=== PATIENT | female | born 1980 | race Caucasian/White ===

== ENCOUNTER 2016-09-18 11:25 | Inpatient (IN) ==
[2016-09-18] MEDS ORDERED: 0.9 % Sodium Chloride 1,000 ML IVC ONE (12:04)
[2016-09-18] MEDS ORDERED: *HR* HYDROmorphone (PF) 1 MG/ML SYRINGE IVP ONE (12:04)
[2016-09-18] MEDS ORDERED: Ondansetron 4 MG/2 ML VIAL IVP ONE (12:04)
[2016-09-18 12:13] LABS: Bilirubin,Urine Negative (Negative); Blood,Urine Negative (Negative); Clarity,Urine Clear (Clear); Color,Urine Yellow (Yellow); Glucose,Urine (UA) Normal (Normal); Ketones,Urine Negative (Negative); Leukocyte Esterase,Urine Negative (Negative); Nitrite,Urine Negative (Negative); PH,Urine 6.5 pH Units (5.0-8.0); Protein,Urine Trace mg/dL (Neg-Trace); Specific Gravity,Urine 1.019 (1.010-1.025); Urobilinogen,Urine Normal (Normal)
[2016-09-18 12:20] LABS: Bacteria,Urine Few per hpf (None-Few); Hyaline Casts,Urine None Seen per lpf (None-Few); RBC,Urine 0-3 per hpf (0-3); Squamous Epithelial Cell,Urine Many per lpf (None-Few); WBC,Urine 0-3 per hpf (0-3)
[2016-09-18 12:39] LABS: Basophils % 0.4 %; Eosinophils # 0.2 K/mcL (0.0-0.6); Hematocrit 40.6 % (35.3-44.9); Hemoglobin 13.5 g/dL (11.5-15.4); Immature Granulocytes % 0.5 % (0-4); Lymphocytes # 1.6 K/mcL (0.6-4.6); Lymphocytes % 20.7 %; Mean Corpuscular HGB Conc 33.3 g/dL (31.6-35.5); Mean Corpuscular Hemoglobin 28.2 pg (28.0-33.3); Mean Corpuscular Volume 84.8 fL (83.0-100.0); Mean Platelet Volume 9.3 fL (9.4-12.4); Monocytes # 0.5 K/mcL (0.0-1.3); Monocytes % 6.4 %; Neutrophils # 5.5 K/mcL (1.6-8.9); Platelet Count 339 K/mcL (140-400); Red Blood Count 4.79 M/mcL (3.82-4.97); Red Cell Distribution Width 14.9 % (11.5-14.5)
[2016-09-18 12:43] LABS: INR 1.1; Prothrombin Time 11.8 Seconds (9.4-12.1)
[2016-09-18 12:45] LABS: Activated Partial Thrombo Time 32.3 Seconds (26.0-36.0)
[2016-09-18 13:01] LABS: Alanine Aminotransferase 23 Units/L (0-55); Albumin 3.7 g/dL (3.5-5.0); Albumin/Globulin Ratio 0.9 (1.1-2.2); Alkaline Phosphatase 97 Units/L (38-126); Amylase 27 Units/L (25-125); Aspartate Amino Transferase 15 Units/L (5-34); BUN/Creatinine Ratio 14 (6-26); Bilirubin,Direct 0.3 mg/dL (0.0-0.5); Bilirubin,Indirect 0.8 mg/dL (0.0-1.2); Bilirubin,Total 1.1 mg/dL (0.2-1.2); Blood Urea Nitrogen 10 mg/dL (7-20); Calcium 9.5 mg/dL (8.6-10.8); Carbon Dioxide 22 mEq/L (19-29); Chloride 105 mEq/L (98-109); Globulin 4.2 g/dL (2.4-3.5); Glucose 93 mg/dL (70-99); Lipase 18 Units/L (8-78); Osmolality,Calculated 287 (280-300); Potassium 3.7 mEq/L (3.5-4.5); Sodium 139 mEq/L (136-145); Total Protein 7.9 g/dL (6.0-8.3); eGFR For African Americans > 60 (> 60); eGFR For Non-African Americans > 60 (> 60)
--- NOTE | 2016-09-18 13:31 | Emergency Department Note ---
Disposition Clinical Impression: Diverticulitis Qualifiers: Diverticulitis site: large intestine Diverticulitis bleeding: without bleeding Diverticulitis complication: without perforation or abscess Qualified Code(s): K57.32 - Diverticulitis of large intestine without perforation or abscess without bleeding Disposition: Admitted As Inpatient Condition: Good Time of Disposition: 13:45 Abdominal Pain HPI - General Chief Complaint: ED Abdominal Pain Stated Complaint: LLQ abdominal pain/HTN Time Seen by Provider: 09/18/16 11:33 Source: patient, family Limitations: no limitations Nursing Notes Reviewed: Yes Vital Signs Reviewed: Yes - History of Present Illness HPI Narrative: 36-year-old female presents with left lower quadrant abdominal pain. Patient was evaluated for similar symptoms 5 days ago and diagnosed with diverticulitis on CT scan. She was discharged with Cipro and Flagyl with Zofran. Patient states she was she was unable to keep down her antibiotics despite the use of Zofran ODT or any other medications. Pain Scale: 9 - Related Data Home Medications Medication Instructions Recorded Confirmed Amlodipine [Norvasc] 5 mg PO DAILY 07/23/16 09/18/16 HYDROcodone/Acet 5/325 mg [[place] 1 tab PO Q6H PRN 07/23/16 09/18/16 5-325 mg] GuaiFENesin Liq [Robitussin Liq] 200 mg PO Q6HR PRN 09/18/16 09/18/16 Previous Rx's Medication Instructions Recorded Sennosides/Docusate Sodium [Senna 2 each PO BID #60 tablet 07/29/16 Plus] Amoxicillin/Clavulanate [Augmentin] 875 mg PO BIDWM 10 Days 09/14/16 MetroNIDAZOLE [Flagyl] 500 mg PO TID 10 Days 09/14/16 Ondansetron HCl [Zofran] 4 mg PO Q4H PRN #10 tablet 09/14/16 Allergies Allergy/AdvReac Type Severity Reaction Status Date / Time azithromycin [From Zithromax] Allergy Abdominal Verified 05/20/16 10:02 Pain levofloxacin [From Levaquin] Allergy Hives Verified 05/20/16 10:02 prochlorperazine Allergy Rash Verified 05/20/16 10:02 [From Compazine] Sulfa (Sulfonamide Allergy Anaphylaxis Verified 05/20/16 10:02 Antibiotics) All systems ED: reviewed and negative except as stated. Constitutional: Reports: fever, chills, weakness Cardiovascular: Denies: chest pain, palpitations, dyspnea on exertion Respiratory: Denies: cough, dyspnea, wheezes Gastrointestinal: Reports: abdominal pain, nausea, vomiting, diarrhea Genitourinary: Denies: urgency, dysuria, frequency, hematuria Musculoskeletal: Denies: back pain, neck pain Integumentary: Denies: rash, abrasion Neurological: Denies: headache, weakness, numbness, paresthesias Abdominal Pain PMH - Past Medical History Medical history: Reports: asthma, hypertension, kidney stones Female Surgical History: Reports: appendectomy, , cholecystectomy, hysterectomy [employer] history: Reports: endometriosis, polycystic ovary syndrome Psychiatric history: Reports: anxiety - Social History Smoking status: Never smoker Alcohol use: Reports: none Drug use: Reports: none Physical Exam General: Alert and in no acute distress Skin: Warm, dry, intact Head: Normocephalic and atraumatic Neck: Supple, trachea midline and no tenderness Cardiovascular: RRR, no murmur, normal perfusion Respiratory: CTAB, no wheezing, cough, or respiratory distress Musculoskeletal: Normal strength, no tenderness, swelling or deformity GI: Soft, tenderness palpation of the left lower quadrant without rigidity, guarding, or rebound., nondistended. Bowel sounds present Neuro: A&O to person, place, time and situation. No focal deficits noted on exam Psychiatric: cooperative and appropriate mood and affect. - General Limitations: no limitations General appearance: alert, in no apparent distress Course Vital Signs Temperature 98.0 F 09/18/16 11:26 Pulse Rate 102 09/18/16 11:26 Respiratory Rate 18 09/18/16 11:26 Blood Pressure 170/114 09/18/16 11:26 O2 Sat by Pulse Oximetry 98 09/18/16 11:26 Temperature 97.7 F 09/18/16 23:23 Pulse Rate 90 09/18/16 23:23 Respiratory Rate 14 09/18/16 23:23 Blood Pressure 151/85 09/18/16 23:23 O2 Sat by Pulse Oximetry 97 09/18/16 23:23 Oxygen Delivery Oxygen Delivery Room Air Abdominal Pain - MDM Narrative Medical decision making narrative: Patient started on IV antibiotics emergency department. Patient failed outpatient antibiotics and will be admitted to the hospital for further care and evaluation. Additional CT not ordered because of multiple recent CTs. - Medical Records Medical records reviewed: Yes I reviewed the patient's medical records. - Lab Data Lab results reviewed: Yes I reviewed the patient's lab results. Result diagrams: 09/18/16 12:31 09/18/16 12:31 Lab Results 09/18/16 09/18/16 09/18/16 Range/Units 12:00 12:31 12:31 WBC 7.8 (4.3-11.1) K/mcL RBC 4.79 (3.82-4.97) M/mcL Hgb 13.5 (11.5-15.4) g/dL Hct 40.6 (35.3-44.9) % MCV 84.8 (83.0-100.0) fL MCH 28.2 (28.0-33.3) pg MCHC 33.3 (31.6-35.5) g/dL RDW 14.9 H (11.5-14.5) % Plt Count 339 (140-400) K/mcL MPV 9.3 L (9.4-12.4) fL Immature Gran % 0.5 (0-4) % Seg Neutrophils % 70.0 % Lymphocytes % 20.7 % Monocytes % 6.4 % Eosinophils % 2.0 % Basophils % 0.4 % Neutrophils # 5.5 (1.6-8.9) K/mcL Lymphocytes # 1.6 (0.6-4.6) K/mcL Monocytes # 0.5 (0.0-1.3) K/mcL Eosinophils # 0.2 (0.0-0.6) K/mcL Basophils # 0.0 (0.0-0.2) K/mcL Immature Plt Fraction 3.0 (1.1-6.1) % PT 11.8 (9.4-12.1) Seconds INR 1.1 APTT 32.3 (26.0-36.0) Seconds Sodium (136-145) mEq/L Potassium (3.5-4.5) mEq/L Chloride (98-109) mEq/L Carbon Dioxide (19-29) mEq/L BUN (7-20) mg/dL Creatinine (0.57-1.11) mg/dL Est GFR ( Amer) (> 60) Est GFR (Non-Af Amer) (> 60) BUN/Creatinine Ratio (6-26) Glucose (70-99) mg/dL Calculated Osmolality (280-300) Lactic Acid (0.5-2.2) mmol/L Calcium (8.6-10.8) mg/dL Total Bilirubin (0.2-1.2) mg/dL Direct Bilirubin (0.0-0.5) mg/dL Indirect Bilirubin (0.0-1.2) mg/dL AST (5-34) Units/L ALT (0-55) Units/L Alkaline Phosphatase (38-126) Units/L Serum Total Protein (6.0-8.3) g/dL Albumin (3.5-5.0) g/dL Globulin (2.4-3.5) g/dL Albumin/Globulin Ratio (1.1-2.2) Amylase (25-125) Units/L Lipase (8-78) Units/L Urine Color Yellow (Yellow) Urine Clarity Clear (Clear) Urine pH 6.5 (5.0-8.0) pH Units Ur Specific [place] 1.019 (1.010-1.025) Urine Protein Trace (Neg-Trace) mg/dL Urine Glucose (UA) Normal (Normal) mg/dL Urine Ketones Negative (Negative) mg/dL Urine Blood Negative (Negative) Urine Nitrite Negative (Negative) Urine Bilirubin Negative (Negative) Urine Urobilinogen Normal (Normal) mg/dL Ur Leukocyte Esterase Negative (Negative) Urine Microscopic RBC 0-3 (0-3) per hpf Urine Microscopic WBC 0-3 (0-3) per hpf Ur Squamous Epith Cells Many H (None-Few) per lpf Urine Bacteria Few (None-Few) per hpf Hyaline Casts None Seen (None-Few) per lpf Ur Culture Indicated? NO (NO) 09/18/16 09/18/16 Range/Units 12:31 12:31 WBC (4.3-11.1) K/mcL RBC (3.82-4.97) M/mcL Hgb (11.5-15.4) g/dL Hct (35.3-44.9) % MCV (83.0-100.0) fL MCH (28.0-33.3) pg MCHC (31.6-35.5) g/dL RDW (11.5-14.5) % Plt Count (140-400) K/mcL MPV (9.4-12.4) fL Immature Gran % (0-4) % Seg Neutrophils % % Lymphocytes % % Monocytes % % Eosinophils % % Basophils % % Neutrophils # (1.6-8.9) K/mcL Lymphocytes # (0.6-4.6) K/mcL Monocytes # (0.0-1.3) K/mcL Eosinophils # (0.0-0.6) K/mcL Basophils # (0.0-0.2) K/mcL Immature Plt Fraction (1.1-6.1) % PT (9.4-12.1) Seconds INR APTT (26.0-36.0) Seconds Sodium 139 (136-145) mEq/L Potassium 3.7 (3.5-4.5) mEq/L Chloride 105 (98-109) mEq/L Carbon Dioxide 22 (19-29) mEq/L BUN 10 (7-20) mg/dL Creatinine 0.74 (0.57-1.11) mg/dL Est GFR ( Amer) > 60 (> 60) Est GFR (Non-Af Amer) > 60 (> 60) BUN/Creatinine Ratio 14 (6-26) Glucose 93 (70-99) mg/dL Calculated Osmolality 287 (280-300) Lactic Acid 1.3 (0.5-2.2) mmol/L Calcium 9.5 (8.6-10.8) mg/dL Total Bilirubin 1.1 (0.2-1.2) mg/dL Direct Bilirubin 0.3 (0.0-0.5) mg/dL Indirect Bilirubin 0.8 (0.0-1.2) mg/dL AST 15 (5-34) Units/L ALT 23 (0-55) Units/L Alkaline Phosphatase 97 (38-126) Units/L Serum Total Protein 7.9 (6.0-8.3) g/dL Albumin 3.7 (3.5-5.0) g/dL Globulin 4.2 H (2.4-3.5) g/dL Albumin/Globulin Ratio 0.9 L (1.1-2.2) Amylase 27 (25-125) Units/L Lipase 18 (8-78) Units/L Urine Color (Yellow) Urine Clarity (Clear) Urine pH (5.0-8.0) pH Units Ur Specific [place] (1.010-1.025) Urine Protein (Neg-Trace) mg/dL Urine Glucose (UA) (Normal) mg/dL Urine Ketones (Negative) mg/dL Urine Blood (Negative) Urine Nitrite (Negative) Urine Bilirubin (Negative) Urine Urobilinogen (Normal) mg/dL Ur Leukocyte Esterase (Negative) Urine Microscopic RBC (0-3) per hpf Urine Microscopic WBC (0-3) per hpf Ur Squamous Epith Cells (None-Few) per lpf Urine Bacteria (None-Few) per hpf Hyaline Casts (None-Few) per lpf Ur Culture Indicated? (NO) - Radiology Data Radiology results reviewed: Yes I reviewed the patient's radiology results.
[2016-09-18] MEDS ORDERED: Naloxone 0.4 MG/ML INJ IVP PRN (13:52)
[2016-09-18] MEDS ORDERED: Acetaminophen 325 MG TABLET PO PRN (13:52)
--- NOTE | 2016-09-18 13:59 | Internal Med History&Physical ---
Date of Encounter: 09/18/16 Time of Encounter: 13:57 Assessment and Plan (1) Acute diverticulitis Current visit: No Status: Resolved Severe dehydration secondary to intractable vomiting from acute sigmoid diverticulitis Bowel rest/keep nothing by mouth Start Rocephin and IV Flagyl. IV fluids, Toradol and morphine as needed Zofran as needed Case was discussed with Dr. Saleem, we will not consult surgery for now but the patient decompensates surgery will be called. The patient may need to evaluate the possibility of partial colectomy if the symptoms persist in the future Check a lactic acid (2) Failure of outpatient treatment Current visit: No Status: Acute (3) Intractable vomiting Current visit: No Status: Acute Qualifiers: Vomiting type: unspecified Nausea presence: with nausea Qualified Code(s) : R11.2 - Nausea with vomiting, unspecified (4) HTN (hypertension) Current visit: No Status: Chronic Stable Hold amlodipine Use hydralazine IV as needed Qualifiers: Hypertension type: essential hypertension Qualified Code(s): I10 - Essential (primary) hypertension (5) Morbid obesity with BMI of 40.0-44.9, adult Current visit: No Status: Chronic (6) Asthma Current visit: Yes Status: Acute Laboratories were GI prophylaxis and subcutaneous heparin for DVT prophylaxis. Patient will be admitted as inpatient, she is expected to stay more than 2 midnights. Full code. Time spent on this admission 40 minutes. She is high risk due to recurrent diverticulitis, failure of outpatient therapy and severe dehydration Qualifiers: Asthma severity: unspecified severity Asthma complication type: uncomplicated Qualified Code(s): J45.909 - Unspecified asthma, uncomplicated Internal Medicine - H&P: HPI Chief complaint: vomiting and abdominal pain Admitted From: Emergency Dept History of present illness: Ms. Fernando is a 36 year old female with a past medical history of anxiety, hypertension, asthma with recurrent acute diverticulitis who was admitted to the hospital for that reason back in July 2016, again came to the hospital on September [address] complaining of [address] scan at that time showed sigmoid diverticulitis for which she was sent on Augmentin and Flagyl. She says that she had a dose of an antibiotic here at the hospital and after that was only able to take one dose of Augmentin and Flagyl as she has been vomiting for the past 3 days nonstop, since yesterday, she has vomited 6 times and had one episode of diarrhea. The pain is located mostly on the left lower quadrant , cramp like 9 out of 10 in intensity. Her heart rate is 102 and she appears in distress and very dehydrated. Her blood pressure is stable. Denies any other symptoms. The patient is allergic to Levaquin but has been able to take ciprofloxacin without any problem in the past. Past Med Surg Social Fam HX - Past Medical History Medical history: asthma, hypertension, kidney stones, other (Nephrolithiasis, polycystic ovarian syndrome, endometriosis, anxiety, constipation, recurrent reticulitis) Psychiatric history: anxiety - Past Surgical History Surgical History: appendectomy, , cholecystectomy, hysterectomy, other (unspecified multiple abdominal surgeries between [id number] (eCW), tonsillectomy , adenoidectomy) - Social History Smoking Status: Never smoker Smokeless Tobacco Status: No Alcohol use: none Drug use: none - Family History Mother Adopted: No Family Member Ethnicity: Non- Living Status: Still Living Hx Family Cardiac Disorders: No Hx Family Respiratory Disorders: No Hx Family Cancer: No Hx Family GI Disorders: No Hx Family Endocrine Disorder: No Hx Family Neuromuscular Disorders: No Hx Family Neurologic Disorders: No Hx Family HEENT Disorders: No Hx Family Autoimmune Disorders: No Father Family Member Ethnicity: Non- Hx Family Cardiac Disorders: No Hx Family Respiratory Disorders: No Hx Family Cancer: No Hx Family GI Disorders: No Hx Family Endocrine Disorder: No Hx Family Neuromuscular Disorders: No Hx Family Neurologic Disorders: No Hx Family HEENT Disorders: No Hx Family Autoimmune Disorders: No - Additional Family History Additional family history: Mother with heart disease Internal Medicine - H&P: Meds Amlodipine [Norvasc] 5 mg PO DAILY 07/23/16 [History] HYDROcodone/Acet 5/325 mg [[place] 5-325 mg] 1 tab PO Q6H PRN 07/23/16 [History] Sennosides/Docusate Sodium [Senna Plus] 2 each PO BID #60 tablet 07/29/16 [Rx] Amoxicillin/Clavulanate [Augmentin] 875 mg PO BIDWM 10 Days 09/14/16 [Rx] MetroNIDAZOLE [Flagyl] 500 mg PO TID 10 Days 09/14/16 [Rx] Ondansetron HCl [Zofran] 4 mg PO Q4H PRN #10 tablet 09/14/16 [Rx] GuaiFENesin Liq [Robitussin Liq] 200 mg PO Q6HR PRN 09/18/16 [History] Allergies azithromycin [From Zithromax] Allergy (Verified 05/20/16 10:02) Abdominal Pain levofloxacin [From Levaquin] Allergy (Verified 05/20/16 10:02) Hives prochlorperazine [From Compazine] Allergy (Verified 05/20/16 10:02) Rash Sulfa (Sulfonamide Antibiotics) Allergy (Verified 05/20/16 10:02) Anaphylaxis All Systems PM: A 10-system review of systems was performed and is negative for pertinent findings except as documented above in the HPI. Review of systems: Denies any shortness of breath, no chest pain, no dysuria. Other systems out of the 10 reviewed were negative - Constitutional Vitals: Temp Pulse Resp BP Pulse Ox 98.0 F 99 16 157/110 95 09/18/16 11:26 09/18/16 13:34 09/18/16 13:34 09/18/16 13:34 09/18/16 13:34 General appearance: Present: A&O X 3, obese - Head Head exam: Present: atraumatic, normocephalic - Eye Eye exam: Present: PERRL, conjuntiva pink, sclera anicteric Pupils: Present: PERRL - Neck Neck exam general surgery: Present: supple, trachea midline. Absent: lymphadenopathy - Respiratory Respiratory exam: Present: CTAB. Absent: accessory muscle use, rales, rhonchi, wheezes - Cardiovascular Cardiovascular exam: Present: RRR, +S1, +S2. Absent: diastolic murmur, gallop, rubs, systolic murmur - GI/Abdominal GI/Abdominal exam: Present: diminished bowel sounds, distended, soft, tenderness (Left lower quadrant tenderness, no rebound), no peritoneal signs. Absent: normal bowel sounds, rebound - Extremities Exam Extremities exam: Present: warm, radial pulses palpable and symetrical. Absent : calf tenderness, cyanotic, pedal edema - Neurological Exam Neurological exam: Present: CN II-XII intact, oriented X3, no focal deficits. Absent: pronater drift, facial droop, speech deficit - Skin Skin exam: Present: dry, intact Internal Med - H&P Results - Labs CBC & Chem 7: 09/18/16 12:31 09/18/16 12:31 Labs: Short CBC 09/18/16 Range/Units 12:31 WBC 7.8 (4.3-11.1) K/mcL Hgb 13.5 (11.5-15.4) g/dL Hct 40.6 (35.3-44.9) % Plt Count 339 (140-400) K/mcL Neutrophils # 5.5 (1.6-8.9) K/mcL BMP 09/18/16 12:31 Sodium 139 Potassium 3.7 Chloride 105 Carbon Dioxide 22 BUN 10 Creatinine 0.74 Glucose 93 Calcium 9.5 Liver Function 09/18/16 Range/Units 12:31 Total Bilirubin 1.1 (0.2-1.2) mg/dL Direct Bilirubin 0.3 (0.0-0.5) mg/dL AST 15 (5-34) Units/L ALT 23 (0-55) Units/L Alkaline Phosphatase 97 (38-126) Units/L Albumin 3.7 (3.5-5.0) g/dL Urine 09/18/16 Range/Units 12:00 Urine Color Yellow (Yellow) Urine Clarity Clear (Clear) Urine pH 6.5 (5.0-8.0) pH Units Ur Specific [place] 1.019 (1.010-1.025) Urine Protein Trace (Neg-Trace) mg/dL Urine Glucose (UA) Normal (Normal) mg/dL
[2016-09-18] MEDS: *HR* Morphine 2 MG/ML SYRINGE IVP PRN ×2 (15:20→19:56)
[2016-09-18] MEDS: 0.9 % Sodium Chloride 1,000 ML IVC SCH ×2 (15:25→22:21)
[2016-09-18] MEDS: MetroNIDAZOLE 500 MG/100 ML 500 MG/100 ML BAG IVPB SCH ×2 (15:26→16:15)
[2016-09-18] MEDS: Pantoprazole 40 MG VIAL IVP SCH (15:26)
[2016-09-18] MEDS: *HR* Heparin 5,000 UNIT/ML VIAL SQ SCH (17:54)
[2016-09-18] MEDS: Ondansetron 4 MG/2 ML VIAL IVP PRN (19:56)
[2016-09-19] MEDS: MetroNIDAZOLE 500 MG/100 ML 500 MG/100 ML BAG IVPB SCH ×2 (00:18→07:31)
[2016-09-19] MEDS: Ketorolac 30 MG/ML VIAL IVP PRN ×2 (00:20→11:16)
[2016-09-19] MEDS: 0.9 % Sodium Chloride 1,000 ML IVC SCH ×6 (04:33→23:55)
[2016-09-19] MEDS: Ondansetron 4 MG/2 ML VIAL IVP PRN ×2 (04:35→23:54)
[2016-09-19] MEDS: *HR* Morphine 2 MG/ML SYRINGE IVP PRN ×4 (04:36→20:13)
[2016-09-19] MEDS: *HR* Heparin 5,000 UNIT/ML VIAL SQ SCH ×2 (05:08→17:04)
[2016-09-19 05:21] LABS: Hematocrit 34.1 % (35.3-44.9); Mean Corpuscular HGB Conc 32.6 g/dL (31.6-35.5); Mean Corpuscular Hemoglobin 28.5 pg (28.0-33.3); Mean Corpuscular Volume 87.4 fL (83.0-100.0); Mean Platelet Volume 9.8 fL (9.4-12.4); Platelet Count 268 K/mcL (140-400); Red Cell Distribution Width 14.9 % (11.5-14.5)
[2016-09-19 05:32] LABS: Hemoglobin 11.1 g/dL (11.5-15.4)
[2016-09-19 05:37] LABS: BUN/Creatinine Ratio 15 (6-26); Blood Urea Nitrogen 10 mg/dL (7-20); Calcium 8.6 mg/dL (8.6-10.8); Carbon Dioxide 25 mEq/L (19-29); Chloride 107 mEq/L (98-109); Glucose 97 mg/dL (70-99); Osmolality,Calculated 289 (280-300); Potassium 3.6 mEq/L (3.5-4.5); Sodium 140 mEq/L (136-145); eGFR For African Americans > 60 (> 60); eGFR For Non-African Americans > 60 (> 60)
[2016-09-19] MEDS: Pantoprazole 40 MG VIAL IVP SCH (07:32)
[2016-09-19] MEDS: amLODIPine 5 MG TABLET PO SCH (12:43)
--- NOTE | 2016-09-19 13:27 | Internal Med Progress Note ---
Date of Encounter: 09/19/16 Time of Encounter: 10:00 - Assessment and plan (1) Acute diverticulitis Current Visit: No Status: Resolved Assessment and plan: Patient has a recurrent acute diverticulitis. We will continue nothing by mouth , IV fluids, antibiotics. Symptom management. We will ask the GI consult. (2) Asthma Current Visit: Yes Status: Acute Assessment and plan: Stable. Nebulizer when necessary Qualifiers: Asthma severity: mild intermittent Asthma complication type: uncomplicated Qualified Code(s): J45.20 - Mild intermittent asthma, uncomplicated (3) Nausea and vomiting Current Visit: No Status: Acute Assessment and plan: Due to acute diverticulitis. We will continue nothing by mouth, IV fluids, symptom management. Qualifiers: Vomiting type: unspecified Vomiting Intractability: non-intractable Qualified Code(s): R11.2 - Nausea with vomiting, unspecified (4) HTN (hypertension) Current Visit: No Status: Chronic Assessment and plan: Stable, continue home medication Qualifiers: Hypertension type: essential hypertension Qualified Code(s): I10 - Essential (primary) hypertension (5) Morbid obesity with BMI of 40.0-44.9, adult Current Visit: No Status: Chronic Assessment and plan: Patient needs lifestyle modification (6) DVT prophylaxis Current Visit: No Status: Acute Assessment and plan: Heparin subcutaneously - Time Spent With Patient 25 - 35 minutes - Subjective Interval history: Patient is a 36-year-old female admitted for acute diverticulitis. Her past medical history is significant for asthma, hypertension, kidney stone, PCOS, endometriosis, anxiety, recurrent diverticulitis. Patient was seen and examined. She is still nauseous and sometimes vomiting, no diarrhea, mild to moderate abdominal pain. No fever, vitals are stable. We will continue IV fluid, nothing by mouth. Switch antibiotic to Zosyn considering patient has 2 episodes of acute diverticulitis already this year. - Constitutional Vitals: Temp Pulse Resp BP Pulse Ox 98.1 F 85 16 137/82 94 L 09/19/16 10:56 09/19/16 10:56 09/19/16 10:56 09/19/16 10:56 09/19/16 10:56 General appearance: Present: A&O X 3, obese - Head Head exam: Present: atraumatic, normocephalic - Eye Eye exam: Present: PERRL, conjuntiva pink, sclera anicteric Pupils: Present: PERRL - Neck Neck exam general surgery: Present: supple, trachea midline. Absent: lymphadenopathy - Respiratory Respiratory exam: Present: CTAB. Absent: accessory muscle use, rales, rhonchi, wheezes - Cardiovascular Cardiovascular exam: Present: RRR, +S1, +S2. Absent: diastolic murmur, gallop, rubs, systolic murmur - GI/Abdominal GI/Abdominal exam: Present: normal bowel sounds, soft, tenderness (Lower Abdomen tenderness without rebound or guarding), no peritoneal signs. Absent: distended - Extremities Exam Extremities exam: Present: warm, radial pulses palpable and symetrical. Absent : calf tenderness, cyanotic, pedal edema - Neurological Exam Neurological exam: Present: CN II-XII intact, oriented X3, no focal deficits. Absent: pronater drift, facial droop, speech deficit - Skin Skin exam: Present: dry, intact Internal Medicine: Result - Labs CBC & Chem 7: 09/19/16 04:27 09/19/16 04:27 Labs: Short CBC 09/19/16 Range/Units 04:27 WBC 6.5 (4.3-11.1) K/mcL Hgb 11.1 L D (11.5-15.4) g/dL Hct 34.1 L (35.3-44.9) % Plt Count 268 (140-400) K/mcL BMP 09/19/16 04:27 Sodium 140 Potassium 3.6 Chloride 107 Carbon Dioxide 25 BUN 10 Creatinine 0.66 Glucose 97 Calcium 8.6 - ABG Interpretation ABG results: PT/INR, D-dimer PT 11.8 Seconds (9.4-12.1) 09/18/16 12:31 Consult Discharge Plan - Plan Referrals: Carlos Malagon, PAC [Primary Care Provider] -
[2016-09-19] MEDS ORDERED: Ipratropium/Albuterol Neb 3 ML IH PRN (13:28)
--- NOTE | 2016-09-19 14:27 | Electrocardiograph Report ---
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
[2016-09-19] MEDS: *HR* Promethazine 25 MG/ML VIAL IVP PRN (15:08)
[2016-09-19] MEDS: Piperacillin/Tazobactam 3.375 GM in D5% in Water (Mini-Bag+) 100 ML IVPB SCH ×2 (15:08→23:55)
[2016-09-19] MEDS: Sennosides/Docusate Sodium TABLET PO SCH (20:13)
[2016-09-20] MEDS: *HR* Morphine 2 MG/ML SYRINGE IVP PRN ×4 (04:30→20:51)
[2016-09-20 05:14] LABS: Basophils % 0.4 %; Eosinophils # 0.2 K/mcL (0.0-0.6); Eosinophils % 3.1 %; Hematocrit 34.1 % (35.3-44.9); Hemoglobin 11.2 g/dL (11.5-15.4); Immature Granulocytes % 0.4 % (0-4); Lymphocytes # 1.1 K/mcL (0.6-4.6); Mean Corpuscular HGB Conc 32.8 g/dL (31.6-35.5); Mean Corpuscular Hemoglobin 28.1 pg (28.0-33.3); Mean Corpuscular Volume 85.7 fL (83.0-100.0); Mean Platelet Volume 9.4 fL (9.4-12.4); Monocytes # 0.4 K/mcL (0.0-1.3); Monocytes % 7.3 %; Neutrophils # 3.8 K/mcL (1.6-8.9); Platelet Count 249 K/mcL (140-400); Red Blood Count 3.98 M/mcL (3.82-4.97); Red Cell Distribution Width 14.6 % (11.5-14.5); Segmented Neutrophils % 68.8 %
[2016-09-20] MEDS: *HR* Heparin 5,000 UNIT/ML VIAL SQ SCH ×2 (05:15→17:28)
[2016-09-20 05:30] LABS: BUN/Creatinine Ratio 10 (6-26); Blood Urea Nitrogen 6 mg/dL (7-20); Calcium 8.4 mg/dL (8.6-10.8); Carbon Dioxide 23 mEq/L (19-29); Chloride 108 mEq/L (98-109); Glucose 108 mg/dL (70-99); Osmolality,Calculated 286 (280-300); Potassium 3.4 mEq/L (3.5-4.5); Sodium 139 mEq/L (136-145); eGFR For African Americans > 60 (> 60); eGFR For Non-African Americans > 60 (> 60)
[2016-09-20] MEDS: 0.9 % Sodium Chloride 1,000 ML IVC SCH (06:45)
[2016-09-20] MEDS ORDERED: 0.9 % Sodium Chloride 1,000 ML IVC SCH (07:22)
[2016-09-20] MEDS: Pantoprazole 40 MG VIAL IVP SCH (08:24)
[2016-09-20] MEDS: amLODIPine 5 MG TABLET PO SCH (08:24)
[2016-09-20] MEDS: Sennosides/Docusate Sodium TABLET PO SCH ×2 (08:24→20:51)
[2016-09-20] MEDS: Piperacillin/Tazobactam 3.375 GM in D5% in Water (Mini-Bag+) 100 ML IVPB SCH ×2 (08:24→17:27)
[2016-09-20] MEDS: Ondansetron 4 MG/2 ML VIAL IVP PRN (08:42)
--- NOTE | 2016-09-20 08:42 | Gastroenterology Consult Note ---
<Nancy Mcfarlane - Last Filed: 09/20/16 10:45> Date of Encounter: 09/20/16 Time of Encounter: 10:25 - Assessment and plan (1) Diverticulitis Current Visit: Yes Status: Acute Assessment and plan: Atbs, pain control. Plan for OTPT Cscope evaluation in 8-12 weeks. D/C patient home on fiber supplement daily. Pain is not improved since 09/14, rescan today. Qualifiers: Diverticulitis site: large intestine Diverticulitis bleeding: without bleeding Diverticulitis complication: without perforation or abscess Qualified Code(s): K57.32 - Diverticulitis of large intestine without perforation or abscess without bleeding (2) Nausea and vomiting Current Visit: No Status: Acute Assessment and plan: Intractable N/V unclear etiology, possibly secondary to acute diverticulitis. Anti-emetics, alternate phenergan and zofran, if not effective consider IV reglan for control. Patient currently on bowel rest, IV fluids. Qualifiers: Vomiting type: unspecified Vomiting Intractability: non-intractable Qualified Code(s): R11.2 - Nausea with vomiting, unspecified - Time Spent With Patient Total time spent is greater than 50% in coordination of care (as documented) at patient's floor/unit and/or counseling patient: less than 15 minutes GI History of Present Illness - Data of Consult Patient: new to practice Consult date: 09/20/16 Requesting Physician: Yeni Lujan MD - Consult Narrative Reason for consult: Uncomplicated diverticulitis History of present illness: Ms. Fernando is a 36 year old female with a PMH of anxiety, HTN, asthma with recurrent acute diverticulitis (this is the 2nd or 3rd episode within the last 12 months) who was admitted to the hospital for that reason back in July 2016, again came to the hospital on September 14 complaining of [address] scan at that time showed sigmoid diverticulitis for which she was sent on Augmentin and Flagyl. She says that she had a dose of an antibiotic here at the hospital and after that was only able to take one dose of Augmentin and Flagyl as she has been vomiting for the past 3 days nonstop.She was admitted due to OTPT treatment failure with oral medications and is now receiving the medication IV. The pain is located mostly on the left lower quadrant, cramp like 9 out of 10 in intensity. Patient examined at bedside, fresh, liquid yellow emesis in basis at bedside. Patient states pain has improved 'some' since her admission. She hasn't eaten solid food in one week time, she continues to have N/V with anything by mouth. She admits some gas yesterday, no bowel movement since admission, she complains of increase in bloating. Denies indigestion/heartburn, dysphagia. Bowel movements prior to admission 2-3 times daily, soft, brown stools. No blood or black stools. Colonoscopy: None noted EGD: None noted Past Med Surg Social Fam HX - Past Medical History Medical history: asthma, hypertension, kidney stones Psychiatric history: anxiety - Past Surgical History Surgical History: appendectomy, , cholecystectomy, hysterectomy, other - Social History Smoking Status: Never smoker Smokeless Tobacco Status: No Alcohol use: none Drug use: none - Family History Mother Adopted: No Family Member Ethnicity: Non- Living Status: Still Living Hx Family Cardiac Disorders: No Hx Family Respiratory Disorders: No Hx Family Cancer: No Hx Family GI Disorders: No Hx Family Endocrine Disorder: No Hx Family Neuromuscular Disorders: No Hx Family Neurologic Disorders: No Hx Family HEENT Disorders: No Hx Family Autoimmune Disorders: No Father Family Member Ethnicity: Non- Hx Family Cardiac Disorders: No Hx Family Respiratory Disorders: No Hx Family Cancer: No Hx Family GI Disorders: No Hx Family Endocrine Disorder: No Hx Family Neuromuscular Disorders: No Hx Family Neurologic Disorders: No Hx Family HEENT Disorders: No Hx Family Autoimmune Disorders: No - Gastrointestinal NSAID use: none Anticoagulation Use: Heparin Number of BM Per Day: 2-3 Gastrointestinal: Present: abdominal pain, bloating, nausea, vomiting - Constitutional Constitutional: anorexia - EENT Eyes: as per HPI Ears: Present: as per HPI Nose, mouth and throat: Present: as per HPI - Cardiovascular Cardiovascular ROS: Present: as per HPI - Respiratory Respiratory IM: Present: as per HPI - Neurological ROS Neurological GI: Present: as per HPI - Hematologic/Lymphatic Hematologic/Lymphatic pediatric: Present: as per HPI - Musculoskeletal Musculoskeletal ROS GI: Present: as per HPI - Integumentary Integumentary GI: Present: as per HPI - Psychiatric ROS Psychiatric GI: Present: as per HPI - Endocrine Endocrine IM: Present: as per HPI - Constitutional Vitals: Temp Pulse Resp BP Pulse Ox 97.6 F 78 16 150/98 95 09/20/16 06:43 09/20/16 06:43 09/20/16 06:43 09/20/16 06:43 09/20/16 06:43 General appearance: Present: cooperative, A&O X 3, no acute distress, answers questions appropriately - Head Head exam: Present: atraumatic, normocephalic - Eye Eye exam: Present: normal appearance, sclera anicteric - ENT ENT exam: Present: mucous membranes moist - Neck Neck exam general surgery: Present: normal inspection, trachea midline - Respiratory Respiratory exam: Present: CTAB - Cardiovascular Cardiovascular exam: Present: RRR, +S1, +S2 - GI/Abdominal GI/Abdominal exam: Present: hypoactive bowel sounds, soft, tenderness, no peritoneal signs - Rectal Rectal exam: Present: deferred - Extremities Exam Extremities exam: Present: warm - Neurological Exam Neurological exam: Present: no focal deficits - Psychiatric Psychiatric exam: Present: normal affect, normal mood - Skin Skin exam: Present: dry, intact, normal color, warm Results - Labs CBC & Chem 7: 09/20/16 04:43 09/20/16 04:43 Labs: Last Result Calcium 8.4 mg/dL (8.6-10.8) L 09/20/16 04:43 Entire Visit Hgb 11.2 g/dL (11.5-15.4) L 09/20/16 04:43 Hct 34.1 % (35.3-44.9) L 09/20/16 04:43 PT 11.8 Seconds (9.4-12.1) 09/18/16 12:31 Total Bilirubin 1.1 mg/dL (0.2-1.2) 09/18/16 12:31 AST 15 Units/L (5-34) 09/18/16 12:31 ALT 23 Units/L (0-55) 09/18/16 12:31 Amylase 27 Units/L (25-125) 09/18/16 12:31 Lipase 18 Units/L (8-78) 09/18/16 12:31 - ABG ABG results: PT/INR, D-dimer PT 11.8 Seconds (9.4-12.1) 09/18/16 12:31 Consult Discharge Plan - Plan Referrals: Carlos Malagon, PAC [Primary Care Provider] - <ZoeIreneMarilyn - Last Filed: 09/20/16 12:30> Date of Encounter: 09/20/16 Time of Encounter: 10:00 - Time Spent With Patient Total time spent is greater than 50% in coordination of care (as documented) at patient's floor/unit and/or counseling patient: GI History of Present Illness - Data of Consult Requesting Physician: Yeni Lujan MD - Consult Narrative History of present illness: Ms. Fernando is a 36 year old female - Constitutional Vitals: Temp Pulse Resp BP Pulse Ox 97.9 F 80 16 157/91 95 09/20/16 11:12 09/20/16 11:12 09/20/16 11:12 09/20/16 11:12 09/20/16 11:12 Results - Labs CBC & Chem 7: 09/20/16 04:43 09/20/16 04:43 Labs: Last Result Calcium 8.4 mg/dL (8.6-10.8) L 09/20/16 04:43 Entire Visit Hgb 11.2 g/dL (11.5-15.4) L 09/20/16 04:43 Hct 34.1 % (35.3-44.9) L 09/20/16 04:43 PT 11.8 Seconds (9.4-12.1) 09/18/16 12:31 Total Bilirubin 1.1 mg/dL (0.2-1.2) 09/18/16 12:31 AST 15 Units/L (5-34) 09/18/16 12:31 ALT 23 Units/L (0-55) 09/18/16 12:31 Amylase 27 Units/L (25-125) 09/18/16 12:31 Lipase 18 Units/L (8-78) 09/18/16 12:31 - ABG ABG results: PT/INR, D-dimer PT 11.8 Seconds (9.4-12.1) 09/18/16 12:31 - Attending Attestation I examined this patient and my medical decision-making was reviewed with the HOME IMPROVEMENT INSTALLER/PA/Advanced Practice Nurse/Resident Physician. I agree with the documented findings, disposition and treatment plan as described except to the extent set forth below. Patient with diverticulitis. CT scan revealed very minimal changes of diverticulitis. But still is having pain although abdomen is nonsurgical. If Repeat CT scan she does not any new changes then we will recommend adding some Bentyl for abdominal pain. Need colonoscopy as an outpatient 6-8 week
[2016-09-20] MEDS: *HR* Promethazine 25 MG/ML VIAL IVP PRN ×2 (10:20→17:43)
--- NOTE | 2016-09-20 15:08 | Internal Med Progress Note ---
Date of Encounter: 09/20/16 Time of Encounter: 09:00 - Assessment and plan (1) Acute diverticulitis Current Visit: No Status: Resolved Assessment and plan: Patient has a recurrent acute diverticulitis. We will continue nothing by mouth , IV fluids, antibiotics. Symptom management. GI consult appreciated. (2) Asthma Current Visit: Yes Status: Acute Assessment and plan: Stable. Nebulizer when necessary Qualifiers: Asthma severity: mild intermittent Asthma complication type: uncomplicated Qualified Code(s): J45.20 - Mild intermittent asthma, uncomplicated (3) Nausea and vomiting Current Visit: No Status: Acute Assessment and plan: Due to acute diverticulitis. We will continue nothing by mouth, IV fluids, symptom management. Check U tox to rule out drug induced nausea and vomiting. Patient had hysterectomy, is not a reason. Qualifiers: Vomiting type: unspecified Vomiting Intractability: non-intractable Qualified Code(s): R11.2 - Nausea with vomiting, unspecified (4) HTN (hypertension) Current Visit: No Status: Chronic Assessment and plan: Stable, continue home medication Qualifiers: Hypertension type: essential hypertension Qualified Code(s): I10 - Essential (primary) hypertension (5) Morbid obesity with BMI of 40.0-44.9, adult Current Visit: No Status: Chronic Assessment and plan: Patient needs lifestyle modification (6) DVT prophylaxis Current Visit: No Status: Acute Assessment and plan: Heparin subcutaneously - Time Spent With Patient 25 - 35 minutes - Subjective Interval history: Patient is a 36-year-old female admitted for acute diverticulitis. Her past medical history is significant for asthma, hypertension, kidney stone, PCOS, endometriosis, anxiety, recurrent diverticulitis. Patient was seen and examined. She is still nauseous and sometimes vomiting, no diarrhea, mild to moderate abdominal pain. No fever, vitals are stable. We will continue IV fluid, nothing by mouth. Continue Zosyn. GI consult appreciated. Repeated CAT scan shows improvement of the inflammation. - Constitutional Vitals: Temp Pulse Resp BP Pulse Ox 98.0 F 82 16 150/95 96 09/20/16 14:18 09/20/16 14:18 09/20/16 14:18 09/20/16 14:18 09/20/16 14:18 General appearance: Present: A&O X 3, obese - Head Head exam: Present: atraumatic, normocephalic - Eye Eye exam: Present: PERRL, conjuntiva pink, sclera anicteric Pupils: Present: PERRL - Neck Neck exam general surgery: Present: supple, trachea midline. Absent: lymphadenopathy - Respiratory Respiratory exam: Present: CTAB. Absent: accessory muscle use, rales, rhonchi, wheezes - Cardiovascular Cardiovascular exam: Present: RRR, +S1, +S2. Absent: diastolic murmur, gallop, rubs, systolic murmur - GI/Abdominal GI/Abdominal exam: Present: normal bowel sounds, soft, tenderness (Mild tenderness of lower abdomen without guarding or rebound), no peritoneal signs. Absent: distended - Extremities Exam Extremities exam: Present: warm, radial pulses palpable and symetrical. Absent : calf tenderness, cyanotic, pedal edema - Neurological Exam Neurological exam: Present: CN II-XII intact, oriented X3, no focal deficits. Absent: pronater drift, facial droop, speech deficit - Skin Skin exam: Present: dry, intact Internal Medicine: Result - Labs CBC & Chem 7: 09/20/16 04:43 09/20/16 04:43 Labs: Short CBC 09/20/16 Range/Units 04:43 WBC 5.5 (4.3-11.1) K/mcL Hgb 11.2 L (11.5-15.4) g/dL Hct 34.1 L (35.3-44.9) % Plt Count 249 (140-400) K/mcL Neutrophils # 3.8 (1.6-8.9) K/mcL BMP 09/20/16 04:43 Sodium 139 Potassium 3.4 L Chloride 108 Carbon Dioxide 23 BUN 6 L Creatinine 0.63 Glucose 108 H Calcium 8.4 L - ABG Interpretation ABG results: PT/INR, D-dimer PT 11.8 Seconds (9.4-12.1) 09/18/16 12:31 - Impressions Impressions Abdomen/Pelvis CT 09/20/16 13:30 IMPRESSION: 1. Previously noted subtle inflammation adjacent to the sigmoid colon is not appreciated on today's study. 2. No other acute abdominal or pelvic abnormality. 3. Hepatic steatosis. D/ / 09/20/2016 14:30:26 Chante Mercedes MD / santi Interpreting Provider: Chante Mercedes MD Consult Discharge Plan - Plan Referrals: Carlos Malagon, PAC [Primary Care Provider] -
[2016-09-20] MEDS: D5% in 0.45% NACL w KCl 20 MEQ/1,000 ML MLS IVC SCH (17:28)
[2016-09-20 21:39] LABS: Amphetamine Screen,Urine Negative ng/mL (Cutoff=1000); Barbiturate Screen,Urine Negative ng/mL (Cutoff=200); Benzodiazepines Screen,Urine Negative ng/mL (Cutoff=200); Cannabinoid Screen,Urine Negative ng/mL (Cutoff = 50); Cocaine Screen,Urine Negative ng/mL (Cutoff= 300); Opiate Screen,Urine Positive ng/mL (Cutoff=300); Phencyclidine Screen,Urine Negative ng/mL (Cutoff=25)
[2016-09-21] MEDS: *HR* HYDROcodone/Acet 5/325 mg TABLET PO PRN ×3 (00:33→15:58)
[2016-09-21] MEDS: Piperacillin/Tazobactam 3.375 GM in D5% in Water (Mini-Bag+) 100 ML IVPB SCH ×3 (00:33→16:00)
[2016-09-21] MEDS: Ondansetron ODT 4 MG TAB.RAPDIS PO PRN ×2 (00:33→09:13)
[2016-09-21] MEDS: *HR* Morphine 2 MG/ML SYRINGE IVP PRN ×3 (03:32→19:45)
[2016-09-21 03:35] LABS: Basophils % 0.3 %; Eosinophils # 0.2 K/mcL (0.0-0.6); Eosinophils % 3.5 %; Hematocrit 35.8 % (35.3-44.9); Hemoglobin 11.7 g/dL (11.5-15.4); Immature Granulocytes % 0.7 % (0-4); Lymphocytes # 1.4 K/mcL (0.6-4.6); Lymphocytes % 23.6 %; Mean Corpuscular HGB Conc 32.7 g/dL (31.6-35.5); Mean Corpuscular Hemoglobin 28.3 pg (28.0-33.3); Mean Corpuscular Volume 86.7 fL (83.0-100.0); Mean Platelet Volume 9.5 fL (9.4-12.4); Monocytes # 0.4 K/mcL (0.0-1.3); Monocytes % 7.3 %; Neutrophils # 3.7 K/mcL (1.6-8.9); Platelet Count 291 K/mcL (140-400); Red Blood Count 4.13 M/mcL (3.82-4.97); Red Cell Distribution Width 14.6 % (11.5-14.5); Segmented Neutrophils % 64.6 %
[2016-09-21] MEDS: D5% in 0.45% NACL w KCl 20 MEQ/1,000 ML MLS IVC SCH ×2 (03:37→11:41)
[2016-09-21 03:56] LABS: BUN/Creatinine Ratio 8 (6-26); Blood Urea Nitrogen 6 mg/dL (7-20); Calcium 9.2 mg/dL (8.6-10.8); Carbon Dioxide 25 mEq/L (19-29); Chloride 106 mEq/L (98-109); Glucose 125 mg/dL (70-99); Osmolality,Calculated 291 (280-300); Potassium 3.7 mEq/L (3.5-4.5); Sodium 141 mEq/L (136-145); eGFR For African Americans > 60 (> 60); eGFR For Non-African Americans > 60 (> 60)
[2016-09-21] MEDS: *HR* Heparin 5,000 UNIT/ML VIAL SQ SCH ×2 (05:58→17:15)
[2016-09-21] MEDS: Sennosides/Docusate Sodium TABLET PO SCH ×2 (08:29→21:20)
[2016-09-21] MEDS: Pantoprazole 40 MG VIAL IVP SCH (08:29)
[2016-09-21] MEDS: amLODIPine 5 MG TABLET PO SCH (08:29)
--- NOTE | 2016-09-21 12:19 | Internal Med Progress Note ---
Date of Encounter: 09/21/16 Time of Encounter: 09:00 - Assessment and plan (1) Acute diverticulitis Current Visit: No Status: Resolved Assessment and plan: Patient has a recurrent acute diverticulitis. We will continue antibiotics. Symptom improved, advance diet as tolerate. GI consult appreciated. (2) Asthma Current Visit: Yes Status: Acute Assessment and plan: Stable. Nebulizer when necessary Qualifiers: Asthma severity: mild intermittent Asthma complication type: uncomplicated Qualified Code(s): J45.20 - Mild intermittent asthma, uncomplicated (3) Nausea and vomiting Current Visit: No Status: Acute Assessment and plan: Due to acute diverticulitis. We will continue symptom management. U Tox negative for marijuana Qualifiers: Vomiting type: unspecified Vomiting Intractability: non-intractable Qualified Code(s): R11.2 - Nausea with vomiting, unspecified (4) HTN (hypertension) Current Visit: No Status: Chronic Assessment and plan: Stable, continue home medication Qualifiers: Hypertension type: essential hypertension Qualified Code(s): I10 - Essential (primary) hypertension (5) Morbid obesity with BMI of 40.0-44.9, adult Current Visit: No Status: Chronic Assessment and plan: Patient needs lifestyle modification (6) DVT prophylaxis Current Visit: No Status: Acute Assessment and plan: Heparin subcutaneously - Time Spent With Patient 25 - 35 minutes - Subjective Interval history: Patient is a 36-year-old female admitted for acute diverticulitis. Her past medical history is significant for asthma, hypertension, kidney stone, PCOS, endometriosis, anxiety, recurrent diverticulitis. Patient was seen and examined. She is still nauseous but much less. No vomiting since yesterday afternoon, no diarrhea. Improved abdominal pain. No fever, vitals are stable. Advance diet as tolerate. Continue Zosyn. GI consult appreciated. Repeated CAT scan shows improvement of the inflammation. - Constitutional Vitals: Temp Pulse Resp BP Pulse Ox 98.3 F 75 16 132/88 94 L 09/21/16 07:00 09/21/16 07:00 09/21/16 07:00 09/21/16 07:00 09/21/16 07:00 General appearance: Present: A&O X 3, obese - Head Head exam: Present: atraumatic, normocephalic - Eye Eye exam: Present: PERRL, conjuntiva pink, sclera anicteric Pupils: Present: PERRL - Neck Neck exam general surgery: Present: supple, trachea midline. Absent: lymphadenopathy - Respiratory Respiratory exam: Present: CTAB. Absent: accessory muscle use, rales, rhonchi, wheezes - Cardiovascular Cardiovascular exam: Present: RRR, +S1, +S2. Absent: diastolic murmur, gallop, rubs, systolic murmur - GI/Abdominal GI/Abdominal exam: Present: normal bowel sounds, soft, tenderness (Mild tenderness on LLQ), no peritoneal signs. Absent: distended - Extremities Exam Extremities exam: Present: warm, radial pulses palpable and symetrical. Absent : calf tenderness, cyanotic, pedal edema - Neurological Exam Neurological exam: Present: CN II-XII intact, oriented X3, no focal deficits. Absent: pronater drift, facial droop, speech deficit - Skin Skin exam: Present: dry, intact Internal Medicine: Result - Labs CBC & Chem 7: 09/21/16 03:06 09/21/16 03:06 Labs: Short CBC 09/21/16 Range/Units 03:06 WBC 5.8 (4.3-11.1) K/mcL Hgb 11.7 (11.5-15.4) g/dL Hct 35.8 (35.3-44.9) % Plt Count 291 (140-400) K/mcL Neutrophils # 3.7 (1.6-8.9) K/mcL BMP 09/21/16 03:06 Sodium 141 Potassium 3.7 Chloride 106 Carbon Dioxide 25 BUN 6 L Creatinine 0.75 Glucose 125 H Calcium 9.2 - ABG Interpretation ABG results: PT/INR, D-dimer PT 11.8 Seconds (9.4-12.1) 09/18/16 12:31 - Impressions Impressions Abdomen/Pelvis CT 09/20/16 13:30 IMPRESSION: 1. Previously noted subtle inflammation adjacent to the sigmoid colon is not appreciated on today's study. 2. No other acute abdominal or pelvic abnormality. 3. Hepatic steatosis. D/ / 09/20/2016 14:30:26 Chante Mercedes MD / santi Interpreting Provider: Chante Mercedes MD Consult Discharge Plan - Plan Referrals: Carlos Malagon, PAC [Primary Care Provider] -
[2016-09-22] MEDS: Piperacillin/Tazobactam 3.375 GM in D5% in Water (Mini-Bag+) 100 ML IVPB SCH ×3 (00:06→15:54)
[2016-09-22] MEDS: *HR* Heparin 5,000 UNIT/ML VIAL SQ SCH ×2 (06:11→18:08)
[2016-09-22 07:29] LABS: Basophils % 0.5 %; Eosinophils # 0.2 K/mcL (0.0-0.6); Eosinophils % 2.7 %; Hemoglobin 11.8 g/dL (11.5-15.4); Immature Granulocytes % 0.6 % (0-4); Lymphocytes # 1.3 K/mcL (0.6-4.6); Lymphocytes % 20.9 %; Mean Corpuscular HGB Conc 31.9 g/dL (31.6-35.5); Mean Corpuscular Hemoglobin 28.2 pg (28.0-33.3); Mean Corpuscular Volume 88.5 fL (83.0-100.0); Mean Platelet Volume 9.6 fL (9.4-12.4); Monocytes # 0.5 K/mcL (0.0-1.3); Monocytes % 7.8 %; Neutrophils # 4.3 K/mcL (1.6-8.9); Platelet Count 303 K/mcL (140-400); Red Blood Count 4.18 M/mcL (3.82-4.97); Red Cell Distribution Width 14.8 % (11.5-14.5); Segmented Neutrophils % 67.5 %
[2016-09-22] MEDS: Sennosides/Docusate Sodium TABLET PO SCH (07:43)
[2016-09-22] MEDS: Pantoprazole 40 MG VIAL IVP SCH (07:43)
[2016-09-22] MEDS: *HR* HYDROcodone/Acet 5/325 mg TABLET PO PRN ×2 (07:44→14:18)
[2016-09-22] MEDS: amLODIPine 5 MG TABLET PO SCH (07:44)
[2016-09-22 07:45] LABS: BUN/Creatinine Ratio 10 (6-26); Blood Urea Nitrogen 8 mg/dL (7-20); Calcium 9.3 mg/dL (8.6-10.8); Carbon Dioxide 26 mEq/L (19-29); Chloride 105 mEq/L (98-109); Glucose 97 mg/dL (70-99); Osmolality,Calculated 294 (280-300); Potassium 3.7 mEq/L (3.5-4.5); Sodium 143 mEq/L (136-145); eGFR For African Americans > 60 (> 60); eGFR For Non-African Americans > 60 (> 60)
--- NOTE | 2016-09-22 11:07 | Internal Med Progress Note ---
Date of Encounter: 09/22/16 Time of Encounter: 09:00 - Assessment and plan (1) Acute diverticulitis Current Visit: No Status: Resolved Assessment and plan: Patient has a recurrent acute diverticulitis. We will continue antibiotics. Symptom improved, advance diet as tolerate. GI consult appreciated. (2) Asthma Current Visit: Yes Status: Acute Assessment and plan: Stable. Nebulizer when necessary Qualifiers: Asthma severity: mild intermittent Asthma complication type: uncomplicated Qualified Code(s): J45.20 - Mild intermittent asthma, uncomplicated (3) Nausea and vomiting Current Visit: No Status: Inactive Assessment and plan: Due to acute diverticulitis. We will continue symptom management. U Tox negative for marijuana. Nausea and vomiting has improved now Qualifiers: Vomiting type: unspecified Vomiting Intractability: non-intractable Qualified Code(s): R11.2 - Nausea with vomiting, unspecified (4) HTN (hypertension) Current Visit: No Status: Chronic Assessment and plan: Stable, continue home medication Qualifiers: Hypertension type: essential hypertension Qualified Code(s): I10 - Essential (primary) hypertension (5) Morbid obesity with BMI of 40.0-44.9, adult Current Visit: No Status: Chronic Assessment and plan: Patient needs lifestyle modification (6) DVT prophylaxis Current Visit: No Status: Acute Assessment and plan: Heparin subcutaneously - Time Spent With Patient 25 - 35 minutes - Subjective Interval history: Patient is a 36-year-old female admitted for acute diverticulitis. Her past medical history is significant for asthma, hypertension, kidney stone, PCOS, endometriosis, anxiety, recurrent diverticulitis. Patient was seen and examined. She feels much better. No nausea. No vomiting, no diarrhea. Improved abdominal pain, no need pain medication since yesterday evening. No fever, vitals are stable. Advance diet to regular diet, tolerated well. Continue Zosyn. Plan to discharge home soon with by mouth antibiotics. - Constitutional Vitals: Temp Pulse Resp BP Pulse Ox 98.1 F 84 18 138/88 94 L 09/22/16 07:27 09/22/16 07:27 09/22/16 07:27 09/22/16 07:27 09/22/16 07:27 General appearance: Present: A&O X 3, obese - Head Head exam: Present: atraumatic, normocephalic - Eye Eye exam: Present: PERRL, conjuntiva pink, sclera anicteric Pupils: Present: PERRL - Neck Neck exam general surgery: Present: supple, trachea midline. Absent: lymphadenopathy - Respiratory Respiratory exam: Present: CTAB. Absent: accessory muscle use, rales, rhonchi, wheezes - Cardiovascular Cardiovascular exam: Present: RRR, +S1, +S2. Absent: diastolic murmur, gallop, rubs, systolic murmur - GI/Abdominal GI/Abdominal exam: Present: normal bowel sounds, soft, tenderness, no peritoneal signs. Absent: distended - Extremities Exam Extremities exam: Present: warm, radial pulses palpable and symetrical. Absent : calf tenderness, cyanotic, pedal edema - Neurological Exam Neurological exam: Present: CN II-XII intact, oriented X3, no focal deficits. Absent: pronater drift, facial droop, speech deficit - Skin Skin exam: Present: dry, intact Internal Medicine: Result - Labs CBC & Chem 7: 09/22/16 06:42 09/22/16 06:42 Labs: Short CBC 09/22/16 Range/Units 06:42 WBC 6.4 (4.3-11.1) K/mcL Hgb 11.8 (11.5-15.4) g/dL Hct 37.0 (35.3-44.9) % Plt Count 303 (140-400) K/mcL Neutrophils # 4.3 (1.6-8.9) K/mcL BMP 09/22/16 06:42 Sodium 143 Potassium 3.7 Chloride 105 Carbon Dioxide 26 BUN 8 Creatinine 0.79 Glucose 97 Calcium 9.3 - ABG Interpretation ABG results: PT/INR, D-dimer PT 11.8 Seconds (9.4-12.1) 09/18/16 12:31 - Impressions Impressions Abdomen/Pelvis CT 09/20/16 13:30 IMPRESSION: 1. Previously noted subtle inflammation adjacent to the sigmoid colon is not appreciated on today's study. 2. No other acute abdominal or pelvic abnormality. 3. Hepatic steatosis. D/ / 09/20/2016 14:30:26 Chante Mercedes MD / santi Interpreting Provider: Chante Mercedes MD Consult Discharge Plan - Plan Referrals: Carlos Malagon, PAC [Primary Care Provider] -
[2016-09-22] MEDS: Ketorolac 30 MG/ML VIAL IVP PRN (15:54)
[2016-09-22] MEDS: Ondansetron ODT 4 MG TAB.RAPDIS PO PRN (18:07)
[2016-09-22] MEDS: *HR* Morphine 2 MG/ML SYRINGE IVP PRN (18:07)
[2016-09-23] MEDS: Piperacillin/Tazobactam 3.375 GM in D5% in Water (Mini-Bag+) 100 ML IVPB SCH (00:22)
[2016-09-23 03:09] LABS: Basophils % 0.3 %; Eosinophils # 0.2 K/mcL (0.0-0.6); Eosinophils % 3.3 %; Hematocrit 36.6 % (35.3-44.9); Immature Granulocytes % 0.7 % (0-4); Lymphocytes # 1.7 K/mcL (0.6-4.6); Lymphocytes % 23.7 %; Mean Corpuscular HGB Conc 32.8 g/dL (31.6-35.5); Mean Corpuscular Hemoglobin 28.9 pg (28.0-33.3); Mean Corpuscular Volume 88.2 fL (83.0-100.0); Mean Platelet Volume 9.5 fL (9.4-12.4); Monocytes # 0.6 K/mcL (0.0-1.3); Monocytes % 8.2 %; Neutrophils # 4.7 K/mcL (1.6-8.9); Platelet Count 300 K/mcL (140-400); Red Blood Count 4.15 M/mcL (3.82-4.97); Red Cell Distribution Width 15.1 % (11.5-14.5); Segmented Neutrophils % 63.8 %
[2016-09-23 03:24] LABS: BUN/Creatinine Ratio 15 (6-26); Blood Urea Nitrogen 12 mg/dL (7-20); Calcium 9.2 mg/dL (8.6-10.8); Carbon Dioxide 25 mEq/L (19-29); Chloride 104 mEq/L (98-109); Glucose 127 mg/dL (70-99); Osmolality,Calculated 293 (280-300); Potassium 3.5 mEq/L (3.5-4.5); Sodium 141 mEq/L (136-145); eGFR For African Americans > 60 (> 60); eGFR For Non-African Americans > 60 (> 60)
[2016-09-23] MEDS: *HR* Heparin 5,000 UNIT/ML VIAL SQ SCH ×2 (05:46→05:48)
[2016-09-23 07:25] VITALS: BP 136/93
[2016-09-23] MEDS: amLODIPine 5 MG TABLET PO SCH (09:20)
--- NOTE | 2016-09-23 09:57 | Discharge Summary ---
Date of Encounter: 09/23/16 Time of Encounter: 10:00 - Discharge Diagnosis (1) Acute diverticulitis Priority: Primary Status: Resolved (2) Asthma Priority: Secondary Status: Acute Qualifiers: Asthma severity: mild intermittent Asthma complication type: uncomplicated Qualified Code(s): J45.20 - Mild intermittent asthma, uncomplicated (3) Nausea and vomiting Priority: Secondary Status: Inactive Qualifiers: Vomiting type: unspecified Vomiting Intractability: non-intractable Qualified Code(s): R11.2 - Nausea with vomiting, unspecified (4) HTN (hypertension) Priority: Secondary Status: Chronic Qualifiers: Hypertension type: essential hypertension Qualified Code(s): I10 - Essential (primary) hypertension (5) Morbid obesity with BMI of 40.0-44.9, adult Priority: Secondary Status: Chronic (6) DVT prophylaxis Priority: Secondary Status: Acute - Discharge Medications Prescriptions: Amoxicillin/Clavulanate [Augmentin] 875 mg PO BIDWM 14 Days Home Medications: Amlodipine [Norvasc] 5 mg PO DAILY 07/23/16 [History] HYDROcodone/Acet 5/325 mg [[place] 5-325 mg] 1 tab PO Q6H PRN 07/23/16 [History] Ondansetron HCl [Zofran] 4 mg PO Q4H PRN #10 tablet 09/14/16 [Rx] GuaiFENesin Liq [Robitussin Liq] 200 mg PO Q6HR PRN 09/18/16 [History] Amoxicillin/Clavulanate [Augmentin] 875 mg PO BIDWM 14 Days 09/23/16 [Rx] Allergies/Adverse Reactions: Allergies azithromycin [From Zithromax] Allergy (Verified 05/20/16 10:02) Abdominal Pain levofloxacin [From Levaquin] Allergy (Verified 05/20/16 10:02) Hives prochlorperazine [From Compazine] Allergy (Verified 05/20/16 10:02) Rash Sulfa (Sulfonamide Antibiotics) Allergy (Verified 05/20/16 10:02) Anaphylaxis Procedures/tests Complete & Pending: Procedures Performed prior 72 hours Category Date Time Status CT abd pelvis w iv and oral [CT] Urgent Cat Scan 09/20/16 13:30 Completed US liver [US] Routine Exams 09/23/16 17:00 Ordered Date of admission: 09/18/16 14:24 Primary care physician: Carlos Malagon Consults: 09/19/16 11:43 Consult to Gastroenterology [CONS] Routine Consulting Provider: Wade Jimenez Reason for Consult: Diverticulitis Call Completed: Yes Discharging clinician: Yeni Lujan Anticipated date of discharge: 09/23/16 - Patient Status Disposition: Home, Self-Care Condition: Good Functional capacity at discharge: independent ambulation Overall status at discharge: patient is progressing back to baseline - Discharge Instructions Follow Up With: Carlos Malagon, PAC [Primary Care Provider] - Marilyn Enriquez MD [Partnered Physician] - 09/30/16 - Diet and Activity Activity: increase activity as tolerated Diet: regular diet (High-fiber diet) Interval History: Ms. Fernando is a 36 year old female with a past medical history of anxiety, hypertension, asthma with recurrent acute diverticulitis who was admitted to the hospital for that reason back in July 2016, again came to the hospital on September [address] of [address] scan at that time showed sigmoid diverticulitis for which she was sent on Augmentin and Flagyl. She says that she had a dose of an antibiotic here at the hospital and after that was only able to take one dose of Augmentin and Flagyl as she has been vomiting for the past 3 days nonstop, since yesterday, she has vomited 6 times and had one episode of diarrhea. The pain is located mostly on the left lower quadrant , cramp like 9 out of 10 in intensity. Her heart rate is 102 and she appears in distress and very dehydrated. Her blood pressure is stable. Denies any other symptoms. The patient is allergic to Levaquin but has been able to take ciprofloxacin without any problem in the past. Hospital course: Ms. Fernando is a 36 year old female admitted as acute diverticulitis. Patient was keep nothing by mouth, IV fluid, antibiotics. She was also given symptomatic treatment for nausea and vomiting. After treatment, her condition has improved. She had no nausea, no vomiting. Complain mild left-sided abdominal pain and no diarrhea. Tolerating regular diet well. Patient was discharged home today and follow up with GI as outpatient. I saw and examined the patient today. She is awake alert, oriented 3. No fever, no nausea, no vomiting, minimal abdominal pain on left side. Vital signs stable. WBC is within normal limits. Tolerated regular diet well. Patient will discharge home with by mouth antibiotics and a high-fiber diet. GI ordered some workup for cirrhosis, I discussed with GI consult Dr. Enriquez, all the results will follow up by GI as outpatient. Patient is stable to discharge home. - Time Spent with Patient Total time spent providing and/or coordinating discharge services: 40 minutes Greater than 30 minutes - Constitutional Vitals: Temp Pulse Resp BP Pulse Ox 98.5 F 91 18 136/93 96 09/23/16 07:22 09/23/16 07:22 09/23/16 07:22 09/23/16 07:22 09/23/16 07:22 General appearance: Present: A&O X 3, obese - Head Head exam: Present: atraumatic, normocephalic - Eye Eye exam: Present: PERRL, conjuntiva pink, sclera anicteric Pupils: Present: PERRL - Neck Neck exam general surgery: Present: supple, trachea midline. Absent: lymphadenopathy - Respiratory Respiratory exam: Present: CTAB. Absent: accessory muscle use, rales, rhonchi, wheezes - Cardiovascular Cardiovascular exam: Present: RRR, +S1, +S2. Absent: diastolic murmur, gallop, rubs, systolic murmur - GI/Abdominal GI/Abdominal exam: Present: normal bowel sounds, soft, tenderness (Mild tenderness on deep palpation on left lower quadrant, without rebound or guarding ), no peritoneal signs. Absent: distended - Extremities Exam Extremities exam: Present: warm, radial pulses palpable and symetrical. Absent : calf tenderness, cyanotic, pedal edema - Neurological Exam Neurological exam: Present: CN II-XII intact, oriented X3, no focal deficits. Absent: pronater drift, facial droop, speech deficit - Skin Skin exam: Present: dry, intact
[2016-09-23 10:39] LABS: INR 1.1; Prothrombin Time 11.5 Seconds (9.4-12.1)
[2016-09-23 10:51] LABS: Albumin 3.5 g/dL (3.5-5.0); Albumin/Globulin Ratio 0.9 (1.1-2.2); Bilirubin,Direct 0.3 mg/dL (0.0-0.5); Bilirubin,Indirect 0.5 mg/dL (0.0-1.2); Bilirubin,Total 0.8 mg/dL (0.2-1.2); Total Protein 7.5 g/dL (6.0-8.3)
--- NOTE | 2016-09-23 10:58 | Gastroenterology Progress Note ---
Date of Encounter: 09/23/16 Time of Encounter: 10:40 - Assessment and plan (1) Fatty liver Current Visit: Yes Status: Acute Assessment and plan: Complete liver workup and ultrasound. (2) Diverticulitis Current Visit: Yes Status: Acute Assessment and plan: Continue antibiotics. CT A/P 09/20/16 the previously noted subtle inflammation in the mid sigmoid colon not appreciated, but did show fatty liver. Plan for colonoscopy in 6-8 weeks as outpatient. Qualifiers: Diverticulitis site: large intestine Diverticulitis bleeding: without bleeding Diverticulitis complication: without perforation or abscess Qualified Code(s): K57.32 - Diverticulitis of large intestine without perforation or abscess without bleeding (3) Intractable vomiting Current Visit: No Status: Acute Assessment and plan: Resolved. Qualifiers: Vomiting type: unspecified Nausea presence: with nausea Qualified Code(s) : R11.2 - Nausea with vomiting, unspecified (4) Abdominal bloating Current Visit: Yes Status: Acute Assessment and plan: 1.) Avoid chewing gum or sucking on hard candies (especially sugarless gum or dietetic candies that contain sorbitol). 2.) Eliminate carbonated beverages and reduce foods containing high-fructose corn syrup from your diet. 3.) Avoid milk and milk products, such as soft cheeses 4.) Eat less gas-producing foods such as: Vegetables: brussel sprouts, broccoli, bagels, bananas, cabbage, cauliflower, cucumbers,carrots, celery and onion. Or when eating such foods, you may consider trying [id number] gas relief medicines, which may help breakdown the non-absorbable carbohydrates found in these foods. 5.) Exercise helps to stimulate the passage of gas through the digestive tract, consider walking. 6.) Consider trying sghy-[id number] gas relief medicines such as Activated charcoal one tablet with meals or Beano 1-2 tablets or 5-10 drops with meals or Gas-X 1 tablet three times a day with meals or bismuth subsalicylate 524 mg three times a day with meals as needed. - Time Spent With Patient Total time spent is greater than 50% in coordination of care (as documented) at patient's floor/unit and/or counseling patient: - Subjective Interval history: Patient is feeling better today. She denies abdominal pain, nausea, vomiting, or diarrhea. She does report abdominal bloating. - Constitutional Vitals: Temp Pulse Resp BP Pulse Ox 98.5 F 91 18 136/93 96 09/23/16 07:22 09/23/16 07:22 09/23/16 07:22 09/23/16 07:22 09/23/16 07:22 General appearance: Present: cooperative, A&O X 3, no acute distress, answers questions appropriately - Head Head exam: Present: atraumatic, normocephalic - Eye Eye exam: Present: normal appearance, sclera anicteric - ENT ENT exam: Present: mucous membranes moist - Neck Neck exam general surgery: Present: normal inspection, trachea midline - Respiratory Respiratory exam: Present: CTAB. Absent: rales, rhonchi, wheezes - Cardiovascular Cardiovascular exam: Present: RRR, +S1, +S2 - GI/Abdominal GI/Abdominal exam: Present: soft, tenderness (mild tenderness on deep palpation LLQ.), no peritoneal signs. Absent: distended, firm, guarding - Rectal Rectal exam: Present: deferred - Extremities Exam Extremities exam: Present: warm - Neurological Exam Neurological exam: Present: no focal deficits - Psychiatric Psychiatric exam: Present: normal affect, normal mood - Skin Skin exam: Present: dry, intact, normal color, warm Results - Labs CBC & Chem 7: 09/23/16 02:40 09/23/16 02:40 Labs: Last Result Calcium 9.2 mg/dL (8.6-10.8) 09/23/16 02:40 Urine Opiates Screen Positive ng/mL (Ymkeax=945) H 09/20/16 21:00 Entire Visit Hgb 12.0 g/dL (11.5-15.4) 09/23/16 02:40 Hct 36.6 % (35.3-44.9) 09/23/16 02:40 PT 11.5 Seconds (9.4-12.1) 09/23/16 09:50 Total Bilirubin 0.8 mg/dL (0.2-1.2) 09/23/16 09:50 AST 13 Units/L (5-34) 09/23/16 09:50 ALT 27 Units/L (0-55) 09/23/16 09:50 Amylase 27 Units/L (25-125) 09/18/16 12:31 Lipase 18 Units/L (8-78) 09/18/16 12:31 - ABG ABG results: PT/INR, D-dimer PT 11.5 Seconds (9.4-12.1) 09/23/16 09:50 Consult Discharge Plan - Plan Referrals: Carlos Malagon, PAC [Primary Care Provider] - Marilyn Enriquez MD [Partnered Physician] - (The office will call you with the date and time of appointment. thank you) Prescriptions: Amoxicillin/Clavulanate [Augmentin] 875 mg PO BIDWM 14 Days
[2016-09-23 13:03] LABS: Hepatitis A Antibody IgM Nonreactive (Nonreactive); Hepatitis B Core IgM Nonreactive (Nonreactive); Hepatitis B Surface Antigen Nonreactive (Nonreactive); Hepatitis C Virus Antibody Nonreactive (Nonreactive)
[2016-09-24 11:05] LABS: AFP Tumor Marker Non-Pregnant 2 ng/mL (0-9)
[2016-09-24 14:56] LABS: Ceruloplasmin 45 mg/dL (17-54)
[2016-09-26 07:19] LABS: ANA IgG by ELISA NONE DETECTED (None Detected); Alpha-1-Antitrypsin 179 mg/dL (90-200)
[2016-09-26 07:20] LABS: F-Actin (sm muscle) Ab IgG 7 Units (0-19)
== END 2016-09-23 11:33 | disposition home or self-care (01) | DRG 244 ==
LOC: 3ANU 11:25 → EMEROO 11:25 → 3ANU 14:57
PROVIDERS: ADMIT Internal Medicine; ATTEND Internal Medicine

== ENCOUNTER 2016-10-20 17:12 | Inpatient (IN) ==
[2016-10-20] MEDS ORDERED: *HR* HYDROmorphone (PF) 1 MG/ML SYRINGE IVP ONE (18:06)
--- NOTE | 2016-10-20 18:12 | Emergency Department Note ---
Disposition Clinical Impression: Abdominal pain Qualifiers: Abdominal location: left lower quadrant Qualified Code(s): R10.32 - Left lower quadrant pain Disposition: Admitted As Inpatient Condition: Fair Referrals: Carlos Malagon, PAC [Primary Care Provider] - Forms: Work/School Release, ED Satisfaction Letter Time of Disposition: 18:49 Abdominal Pain HPI - General Chief Complaint: ED Abdominal Pain Stated Complaint: "Needs IV antibiotics" Time Seen by Provider: 10/20/16 17:37 Source: patient Mode of arrival: ambulatory Limitations: no limitations Nursing Notes Reviewed: Yes Vital Signs Reviewed: Yes - History of Present Illness HPI Narrative: Ms. Fernando is a 36 year old female with history of hypertension, history of kidney stones, PCOS, asthma, and endometriosis as well as significant surgical history who presents to the ED with worsening LLQ abdominal pain and chills for the past 1 week. Patient was seen by Dr. Enriquez and reportedly was diagnosed with diverticulitis and given PO Flagyl antibiotics. Patient had a CT Abdomen/ Pelvis 10/15/16 at that time which revealed no acute abnormality in the abdomen or pelvis, mild-moderate sigmoid diverticulosis without CT changes of acute diverticulitis. Patient reports she spoke to Dr. Enriquez this morning and was told to go to the ED due to worsening abdominal pain despite oral antibiotics. Patient reports she has had a decreased appetite, has nausea and vomiting, and last had a bowel movement yesterday evening which was soft without blood. Patient denies fevers, sweats, headaches, changes in vision or hearing, chest pain, shortness of breath, changes in urination, weakness, or loss of sensation. Pt Subjective Complaint: abdominal pain Onset (ago): day(s) Pain Scale: 9 - Related Data Home Medications Medication Instructions Recorded Confirmed Amlodipine [Norvasc] 5 mg PO DAILY 07/23/16 09/18/16 HYDROcodone/Acet 5/325 mg [[place] 1 tab PO Q6H PRN 07/23/16 09/18/16 5-325 mg] GuaiFENesin Liq [Robitussin Liq] 200 mg PO Q6HR PRN 09/18/16 09/18/16 Previous Rx's Medication Instructions Recorded Ondansetron HCl [Zofran] 4 mg PO Q4H PRN #10 tablet 09/14/16 Amoxicillin/Clavulanate [Augmentin] 875 mg PO BIDWM 14 Days 09/23/16 Promethazine [Phenergan] 25 mg RC Q6HR PRN #12 supp.rect 10/13/16 Allergies Allergy/AdvReac Type Severity Reaction Status Date / Time azithromycin [From Zithromax] Allergy Abdominal Verified 10/15/16 12:51 Pain levofloxacin [From Levaquin] Allergy Hives Verified 10/15/16 12:51 prochlorperazine Allergy Rash Verified 10/15/16 12:51 [From Compazine] Sulfa (Sulfonamide Allergy Anaphylaxis Verified 10/15/16 12:51 Antibiotics) Constitutional: Reports: as per HPI, chills. Denies: fever, weakness Eyes: Reports: as per HPI ENT ED: Reports: as per HPI Cardiovascular: Reports: as per HPI. Denies: chest pain, palpitations Respiratory: Reports: as per HPI. Denies: cough, dyspnea Gastrointestinal: Reports: as per HPI, abdominal pain, nausea, vomiting, diarrhea. Denies: constipation, hematemesis, melena, hematochezia Genitourinary: Reports: as per HPI. Denies: dysuria Musculoskeletal: Reports: as per HPI. Denies: back pain Integumentary: Reports: as per HPI. Denies: rash Neurological: Reports: as per HPI. Denies: headache, weakness, numbness Abdominal Pain PMH - Past Medical History Medical history: Reports: asthma, hypertension, kidney stones Female Surgical History: Reports: appendectomy, , cholecystectomy, hysterectomy [employer] history: Reports: endometriosis, polycystic ovary syndrome Psychiatric history: Reports: anxiety - Social History Smoking status: Never smoker Alcohol use: Reports: none Drug use: Reports: none Physical Exam - General Limitations: no limitations General appearance: alert, in distress (moderate), obese - Head Head exam: atraumatic, normocephalic, normal inspection - Eye Eye exam: Present: normal appearance, PERRL, EOMI - ENT ENT exam: normal exam, normal oropharynx, mucous membranes moist - Neck Neck exam: Present: normal inspection, full ROM, trachea midline - Chest Chest inspection: Present: normal inspection, symmetric chest wall rise - Respiratory Respiratory exam: Present: normal lung sounds bilaterally - Cardiovascular Cardiovascular exam: Present: regular rate, normal rhythm, normal heart sounds - Abdominal Exam Abdominal exam: Present: soft, tenderness (mild tenderness on deep palpation LLQ ), normal bowel sounds. Absent: guarding, rebound, rigidity Abdominal tenderness: Present: LLQ - Extremities Exam Extremities exam: Present: normal inspection, full ROM, normal capillary refill. Absent: tenderness, pedal edema - Back Exam Back exam: Present: normal inspection, full ROM. Absent: tenderness - Neurological Exam Neurological exam: Present: alert, oriented X3, CN II-XII intact, normal gait - Psychiatric Psychiatric exam: Present: normal affect, normal mood - Skin Skin exam: Present: warm, dry, intact, normal color. Absent: rash Course - Reevaluation(s) Reevaluation #1: Vitals: 202/142, Pulse 131, 97% on room air Time: 18:18 - Consultations Consultation #1: Spoke with Dr. Enriquez. Patient failed outpatient antibiotics, continues to have abdominal pain. Dr. Enriquez would like to admit and start patient on IV flagyl and ciprofloxacin. Time: 18:44 Consultation #2: Spoke with Malou Beauchamp, admit for abdominal pain/diverticulitis. Per Dr. Enriquez for IV Flagyl and Ciprofloxacin. Vital Signs Temperature 98.5 F 10/20/16 17:26 Pulse Rate 101 10/20/16 17:26 Respiratory Rate 18 10/20/16 17:26 Blood Pressure 193/149 10/20/16 17:26 O2 Sat by Pulse Oximetry 98 10/20/16 17:26 Temperature 98.5 F 10/20/16 17:26 Pulse Rate 113 10/20/16 19:00 Respiratory Rate 18 10/20/16 19:00 Blood Pressure 145/111 10/20/16 19:00 O2 Sat by Pulse Oximetry 95 10/20/16 19:00 Oxygen Delivery Oxygen Delivery Room Air Abdominal Pain - MDM Narrative Medical decision making narrative: Patient with a history of diverticulitis present to the ED with worsening LLQ pain despite outpatient antibiotics. Patient presents at request of her gi physician for admission for IV antibiotics. Patient is afebrile, normal wbc, and negative abd xray negative. Spoke to Dr. Enriquez who recommends admission for IV antibiotics Flagyl and Ciprofloxacin. Patient admitted. - Lab Data Result diagrams: 10/20/16 17:54 10/20/16 17:54 Lab Results 10/20/16 10/20/16 Range/Units 17:54 17:54 WBC 8.8 (4.3-11.1) K/mcL RBC 4.56 (3.82-4.97) M/mcL Hgb 13.0 (11.5-15.4) g/dL Hct 39.4 (35.3-44.9) % MCV 86.4 (83.0-100.0) fL MCH 28.5 (28.0-33.3) pg MCHC 33.0 (31.6-35.5) g/dL RDW 14.8 H (11.5-14.5) % Plt Count 336 (140-400) K/mcL MPV 9.8 (9.4-12.4) fL Immature Gran % 0.5 (0-4) % Seg Neutrophils % 63.6 % Lymphocytes % 25.2 % Monocytes % 6.2 % Eosinophils % 4.2 % Basophils % 0.3 % Neutrophils # 5.6 (1.6-8.9) K/mcL Lymphocytes # 2.2 (0.6-4.6) K/mcL Monocytes # 0.5 (0.0-1.3) K/mcL Eosinophils # 0.4 (0.0-0.6) K/mcL Basophils # 0.0 (0.0-0.2) K/mcL Sodium 140 (136-145) mEq/L Potassium 4.2 (3.5-4.5) mEq/L Chloride 105 (98-109) mEq/L Carbon Dioxide 24 (19-29) mEq/L BUN 12 (7-20) mg/dL Creatinine 0.86 (0.57-1.11) mg/dL Est GFR ( Amer) > 60 (> 60) Est GFR (Non-Af Amer) > 60 (> 60) BUN/Creatinine Ratio 14 (6-26) Glucose 173 H (70-99) mg/dL Calculated Osmolality 294 (280-300) Calcium 9.8 (8.6-10.8) mg/dL Total Bilirubin 0.7 (0.2-1.2) mg/dL AST 14 (5-34) Units/L ALT 16 (0-55) Units/L Alkaline Phosphatase 109 (38-126) Units/L Serum Total Protein 7.9 (6.0-8.3) g/dL Albumin 3.7 (3.5-5.0) g/dL Globulin 4.2 H (2.4-3.5) g/dL Albumin/Globulin Ratio 0.9 L (1.1-2.2) S.B.A.R. - S.B.A.R. Transition of Care: Follow up Abd XR, Labs. Based on results, contact Dr. Enriquez regarding necessity of patient admission and recommendations for IV antibiotics. Situation: Demographics, MOA Background: Presenting Complaint, Relevant PMH, Meds, & Allergies Assessment: Vital Signs, Course and respsone to treatment, Exam Concerns, Patient/Family Expectation, Pertinant Lab Results, Outstanding Labs Recommendation: Barrier(s) to disposition, Recommendation based on pending studies, treatments, or consults S.B.A.R. Report Given to: Radha Attestation Statement - Attestation Attestation: For this encounter, I have reviewed the resident, [employer], or PA documentation, treatment plan, and medical decision making; and I have had face to face time with this patient. 36-year-old female presents with left lower quadrant abdominal pain. Patient has a long history of diverticulitis which is cause similar symptoms. Patient has been admitted multiple times for similar presentation. Patient states she was taking outpatient antibiotics which were prescribed by Dr. Enriquez, patient states her pain worsened over the past 2-3 days and he recommended admission to the hospital for IV antibiotics. Patient had a CT 5 days ago which did show evidence of acute diverticulitis. She is afebrile and does not have a leukocytosis. The resident spoke with Dr. Enriquez regarding the patient's case and presentation and he recommended admission to the hospital for IV Cipro and Flagyl. The resident spoke with the hospitalist regarding the patient's case and presentation who agreed to admit the patient requested to prescribed antibiotics after initial evaluation. Patient is comfortable with the plan for admission to the hospital.
[2016-10-20 18:18] LABS: Basophils % 0.3 %; Eosinophils # 0.4 K/mcL (0.0-0.6); Eosinophils % 4.2 %; Hematocrit 39.4 % (35.3-44.9); Immature Granulocytes % 0.5 % (0-4); Lymphocytes # 2.2 K/mcL (0.6-4.6); Lymphocytes % 25.2 %; Mean Corpuscular Hemoglobin 28.5 pg (28.0-33.3); Mean Corpuscular Volume 86.4 fL (83.0-100.0); Mean Platelet Volume 9.8 fL (9.4-12.4); Monocytes # 0.5 K/mcL (0.0-1.3); Monocytes % 6.2 %; Neutrophils # 5.6 K/mcL (1.6-8.9); Platelet Count 336 K/mcL (140-400); Red Blood Count 4.56 M/mcL (3.82-4.97); Red Cell Distribution Width 14.8 % (11.5-14.5); Segmented Neutrophils % 63.6 %
[2016-10-20] MEDS ORDERED: *HR* Promethazine 25 MG/ML VIAL IVP ONE (18:18)
[2016-10-20] MEDS ORDERED: amLODIPine 5 MG TABLET PO ONE (18:24)
[2016-10-20 18:33] LABS: Alanine Aminotransferase 16 Units/L (0-55); Albumin 3.7 g/dL (3.5-5.0); Albumin/Globulin Ratio 0.9 (1.1-2.2); Alkaline Phosphatase 109 Units/L (38-126); Aspartate Amino Transferase 14 Units/L (5-34); BUN/Creatinine Ratio 14 (6-26); Bilirubin,Total 0.7 mg/dL (0.2-1.2); Blood Urea Nitrogen 12 mg/dL (7-20); Calcium 9.8 mg/dL (8.6-10.8); Carbon Dioxide 24 mEq/L (19-29); Chloride 105 mEq/L (98-109); Globulin 4.2 g/dL (2.4-3.5); Glucose 173 mg/dL (70-99); Osmolality,Calculated 294 (280-300); Potassium 4.2 mEq/L (3.5-4.5); Sodium 140 mEq/L (136-145); Total Protein 7.9 g/dL (6.0-8.3); eGFR For African Americans > 60 (> 60); eGFR For Non-African Americans > 60 (> 60)
[2016-10-20 19:50] LABS: Bilirubin,Urine Negative (Negative); Blood,Urine Negative (Negative); Clarity,Urine Clear (Clear); Color,Urine Yellow (Yellow); Glucose,Urine (UA) Normal (Normal); Ketones,Urine Negative (Negative); Leukocyte Esterase,Urine Negative (Negative); Nitrite,Urine Negative (Negative); PH,Urine 7.5 pH Units (5.0-8.0); Protein,Urine Trace mg/dL (Neg-Trace); Urobilinogen,Urine Normal (Normal)
[2016-10-20 19:53] LABS: Bacteria,Urine None Seen per hpf (None-Few); Hyaline Casts,Urine None Seen per lpf (None-Few); Squamous Epithelial Cell,Urine Many per lpf (None-Few); WBC,Urine 0-3 per hpf (0-3)
[2016-10-20] MEDS ORDERED: *HR* HYDROmorphone (PF) 1 MG/ML SYRINGE IV ONE (19:53)
[2016-10-20] MEDS ORDERED: Naloxone 0.4 MG/ML INJ IVP PRN (22:13)
--- NOTE | 2016-10-20 22:35 | Internal Med History&Physical ---
Date of Encounter: 10/20/16 Time of Encounter: 22:10 Internal Medicine - H&P: HPI Chief complaint: Abdominal pain x couple days Admitted From: Emergency Dept Plans for Post Hospital Care: Home History of present illness: Ms. Fernando is a 36 year old female with medical history significant for endometriosis, PCOS, nephrolithiasis, presents with progressively worsening left lower abdominal pain as well as chills. She also reports intermittent diarrhea. Abdominal pain appears to be evolving as it now spread to the mid abdomen and left upper quadrant. It takes varrying intensities from pressure to colic exacerbations. No objective fever, no hematochezia. She reports nausea and vomiting. No weight loss. no urinary or new-onset neurological symptoms. No bleeding from any orifice.She reports poor appetite. She was evaluated in the ED on 10/15/2016, CT done at that time reported mild to moderate diverticulosis with CT evidence of diverticulitis. She was recently evaluated by her firefighter marine, Dr Enriquez, who prescribed Ciprofloxacin and Metronidazole po, and has scheduled her for colonoscopy on November 07. She has not observed improvement in her symptoms. She has had at least 2 bouts of endometriosis within the past 6 months. Gastroenterology had informed her she may need colectomy considering the freqency of epsiodes. She has a history of endometriosis and PCOS, she underwent RIKI for the same, there was extensive adhesions requiring 4-5hr surgical time. She has also had lap cholecystectomy and appendectomy. She is FULL CODE as per discussion. She nominates her mother as her NOK/POA, Yvrose Fernando [phone]. 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 ROS: A 10-point ROS was performed, positive and relevant negatives are detailed , system-symptom not mentioned assumed negative unless otherwise stated. Family Hx: asthma in father, mother, bother and sister. Mother has ovarian cancer, sister has uterine cancer. 2 son have Down's syndrome, another is autistic. Vital Signs Temperature 98.5 F 10/20/16 17:26 Pulse Rate 101 10/20/16 17:26 Respiratory Rate 18 10/20/16 17:26 Blood Pressure 193/149 10/20/16 17:26 O2 Sat by Pulse Oximetry 98 10/20/16 17:26 Temperature 98.5 F 10/20/16 17:26 Pulse Rate 113 10/20/16 19:00 Respiratory Rate 18 10/20/16 19:00 Blood Pressure 145/111 10/20/16 19:00 O2 Sat by Pulse Oximetry 95 10/20/16 19:00 O/E: She is distress, she is ill but non- looking HEENT: Not pale, anicteric, afebrile, acyanotic, non-tachypneic. Chest: CTAB Heart: RRR, HS1.2 no murmur Abdomen: soft, diffuse tenderness with localization to the left lower quadrant, no masses. BS+ THERMITE WELDER: AAO x 3, no gross focal neurological deficits. Psychiatry: mood is good, affect is congruent, speech is normal. Thought process is logical and goal-directed. Extremities: No pedal edema, normal pedal edema, no calf tenderness. Skin: no active skin lesion. Lab Results 10/20/16 10/20/16 Range/Units 17:54 17:54 WBC 8.8 (4.3-11.1) K/mcL RBC 4.56 (3.82-4.97) M/mcL Hgb 13.0 (11.5-15.4) g/dL Hct 39.4 (35.3-44.9) % MCV 86.4 (83.0-100.0) fL MCH 28.5 (28.0-33.3) pg MCHC 33.0 (31.6-35.5) g/dL RDW 14.8 H (11.5-14.5) % Plt Count 336 (140-400) K/mcL MPV 9.8 (9.4-12.4) fL Immature Gran % 0.5 (0-4) % Seg Neutrophils % 63.6 % Lymphocytes % 25.2 % Monocytes % 6.2 % Eosinophils % 4.2 % Basophils % 0.3 % Neutrophils # 5.6 (1.6-8.9) K/mcL Lymphocytes # 2.2 (0.6-4.6) K/mcL Monocytes # 0.5 (0.0-1.3) K/mcL Eosinophils # 0.4 (0.0-0.6) K/mcL Basophils # 0.0 (0.0-0.2) K/mcL Sodium 140 (136-145) mEq/L Potassium 4.2 (3.5-4.5) mEq/L Chloride 105 (98-109) mEq/L Carbon Dioxide 24 (19-29) mEq/L BUN 12 (7-20) mg/dL Creatinine 0.86 (0.57-1.11) mg/dL Est GFR ( Amer) > 60 (> 60) Est GFR (Non-Af Amer) > 60 (> 60) BUN/Creatinine Ratio 14 (6-26) Glucose 173 H (70-99) mg/dL Calculated Osmolality 294 (280-300) Calcium 9.8 (8.6-10.8) mg/dL Total Bilirubin 0.7 (0.2-1.2) mg/dL AST 14 (5-34) Units/L ALT 16 (0-55) Units/L Alkaline Phosphatase 109 (38-126) Units/L Serum Total Protein 7.9 (6.0-8.3) g/dL Albumin 3.7 (3.5-5.0) g/dL Globulin 4.2 H (2.4-3.5) g/dL Albumin/Globulin Ratio 0.9 L (1.1-2.2) Abdominal CT: No acute intra-abdominal abnormality: Mild-moderate sigmoid diverticulosis, without CT evidence diverticulitis IMP Diffuse abdominal pain. Diverticulosis, probable diverticulitis. Given her history of endometriosis, appendectomy, , cholecystectomy, hysterectomy, tonsillectomy- adenoidectomy, (unspecified abdominal surgeries x13 between [id number]) and history of anxiety, at such a your age, especially in the absence of findings of acute diverticulitis on CT abdomen, it is worth considering psychosomatization. Chronic morbidities Diverticulosis History of endometriosis Hypertension. History of polycystic ovarian syndrome Morbid obesity PLAN Admit to observation CRP IV Ciprofloxacin 400 mg Q12H IV Metronidazole 500mg Q8H Meperidine 20 po QID Iuka/Morphine prn for abdominal pain. Famotidine 20 mg BID Low risk for DVT, no indication. I discussed my findings and assessment with the patient, she verbalized understanding and is agreeable to admission. She is admitted, having failed out- patient treatment. Past Med Surg Social Fam HX - Past Medical History Medical history: asthma, hypertension, kidney stones Psychiatric history: anxiety - Past Surgical History Surgical History: appendectomy, , cholecystectomy, hysterectomy, other - Social History Smoking Status: Never smoker Smokeless Tobacco Status: No Alcohol use: none Drug use: none - Family History Mother Adopted: No Family Member Ethnicity: Non- Living Status: Still Living Hx Family Cardiac Disorders: No Hx Family Respiratory Disorders: No Hx Family Cancer: No Hx Family GI Disorders: No Hx Family Endocrine Disorder: No Hx Family Neuromuscular Disorders: No Hx Family Neurologic Disorders: No Hx Family HEENT Disorders: No Hx Family Autoimmune Disorders: No Father Family Member Ethnicity: Non- Hx Family Cardiac Disorders: No Hx Family Respiratory Disorders: No Hx Family Cancer: No Hx Family GI Disorders: No Hx Family Endocrine Disorder: No Hx Family Neuromuscular Disorders: No Hx Family Neurologic Disorders: No Hx Family HEENT Disorders: No Hx Family Autoimmune Disorders: No Internal Medicine - H&P: Meds Amlodipine [Norvasc] 5 mg PO BID 07/23/16 [History] HYDROcodone/Acet 5/325 mg [Iuka 5-325 mg] 1 tab PO Q6H PRN 07/23/16 [History] Ondansetron HCl [Zofran] 4 mg PO Q4H PRN #10 tablet 09/14/16 [Rx] Promethazine [Phenergan] 25 mg RC Q6HR PRN #12 supp.rect 10/13/16 [Rx] Allergies azithromycin [From Zithromax] Allergy (Verified 10/15/16 12:51) Abdominal Pain levofloxacin [From Levaquin] Allergy (Verified 10/15/16 12:51) Hives prochlorperazine [From Compazine] Allergy (Verified 10/15/16 12:51) Rash Sulfa (Sulfonamide Antibiotics) Allergy (Verified 10/15/16 12:51) Anaphylaxis All Systems PM: A 10-system review of systems was performed and is negative for pertinent findings except as documented above in the HPI. - Constitutional Vitals: Temp Pulse Resp BP Pulse Ox 98.8 F 110 16 147/91 95 10/20/16 21:53 10/20/16 21:53 10/20/16 21:53 10/20/16 20:20 10/20/16 21:53 Internal Med - H&P Results - Labs CBC & Chem 7: 10/20/16 17:54 10/20/16 17:54 - VTE Reasons for not Prescribing Prophylaxis: Treatment not Indicated - Low risk for VTE
[2016-10-20 22:55] LABS: C-Reactive Protein 21 mg/L (Less than 5)
[2016-10-20] MEDS: Famotidine 20 MG TABLET PO SCH (23:03)
[2016-10-20] MEDS: *HR* Morphine 2 MG/ML SYRINGE IVP PRN (23:03)
[2016-10-20] MEDS: MetroNIDAZOLE 500 MG/100 ML 500 MG/100 ML BAG IVPB SCH (23:04)
[2016-10-20] MEDS: Ondansetron 4 MG/2 ML VIAL IVP PRN (23:04)
[2016-10-21] MEDS: *HR* Morphine 2 MG/ML SYRINGE IVP PRN ×6 (03:29→23:27)
[2016-10-21] MEDS: Ondansetron 4 MG/2 ML VIAL IVP PRN ×2 (05:27→14:07)
[2016-10-21] MEDS: MetroNIDAZOLE 500 MG/100 ML 500 MG/100 ML BAG IVPB SCH ×3 (08:07→23:29)
[2016-10-21] MEDS: amLODIPine 5 MG TABLET PO SCH (08:08)
[2016-10-21] MEDS: Famotidine 20 MG TABLET PO SCH ×2 (08:08→20:07)
--- NOTE | 2016-10-21 10:08 | Internal Med Progress Note ---
Date of Encounter: 10/21/16 Time of Encounter: 10:03 - Assessment and plan (1) Abdominal pain Current Visit: Yes Status: Acute Assessment and plan: Recurrent episodes of diverticulitis. Patient has also been admitted multiple times for abdominal pain with negative CT scans. CT abdomen/pelvis 3 days back showed no evidence of acute diverticulitis. Patient has been recently discharged on oral antibiotic course, which she completed. Her pain could likely be psychosomatic pain given her multiple previous abdominal surgeries. However she may need partial colectomy due to her recurrent episodes of diverticulitis. GI consult appreciated. Continue IV ciprofloxacin and Flagyl along with IV hydration. Clear liquid diet as tolerated. Start probiotics due to recurrent use of antibiotics and risk of C. difficile colitis. Supportive care with when necessary antiemetics, patient is noted to have severe nausea and dry heaves. Outpatient colonoscopy scheduled in early October 2016. Qualifiers: Abdominal location: left lower quadrant Qualified Code(s): R10.32 - Left lower quadrant pain (2) PCOS (polycystic ovarian syndrome) Current Visit: Yes Status: Chronic (3) HTN (hypertension) Current Visit: Yes Status: Chronic Assessment and plan: Blood pressure noted to be elevated, we will restart home blood pressure medications and monitor closely. Qualifiers: Hypertension type: essential hypertension Qualified Code(s): I10 - Essential (primary) hypertension (4) Morbid obesity with BMI of 40.0-44.9, adult Current Visit: Yes Status: Chronic Assessment and plan: Discussed lifestyle modification with patient including weight loss, which may help with her recurrent bouts of diverticulitis and abdominal pain. Patient verbalized understanding and reports that she does follow low fat/low cholesterol diet at home. - Subjective Interval history: Continues to report mild left lower abdominal pain. Last bowel movement yesterday. He reports alternating constipation and diarrhea at home. No nausea , vomiting, fevers or chills. - Constitutional Vitals: Temp Pulse Resp BP Pulse Ox 97.9 F 81 16 114/77 96 10/21/16 06:00 10/21/16 06:00 10/21/16 06:00 10/21/16 06:00 10/21/16 06:00 General appearance: Present: A&O X 3, obese, answers questions appropriately - Respiratory Respiratory exam: Present: CTAB. Absent: accessory muscle use, rales, rhonchi, wheezes - Cardiovascular Cardiovascular exam: Present: RRR, +S1, +S2. Absent: diastolic murmur, gallop, rubs, systolic murmur - GI/Abdominal GI/Abdominal exam: Present: normal bowel sounds, soft (Obese, left lower quadrant and left inguinal ligament area tenderness to deep palpation with no guarding or rigidity), no peritoneal signs. Absent: distended, tenderness - Extremities Exam Extremities exam: Present: pedal edema (Trace), warm, radial pulses palpable and symetrical. Absent: calf tenderness, cyanotic - Neurological Exam Neurological exam: Present: CN II-XII intact, oriented X3, no focal deficits. Absent: pronater drift, facial droop, speech deficit - Skin Skin exam: Present: dry, intact Internal Medicine: Result - Labs CBC & Chem 7: 10/20/16 17:54 10/20/16 17:54 - VTE Reasons for not Prescribing Prophylaxis: Treatment not Indicated - Low risk for VTE Consult Discharge Plan - Plan Referrals: Carlos Malagon, PAC [Primary Care Provider] -
[2016-10-21] MEDS: *HR* Promethazine 25 MG/ML VIAL IVP PRN ×2 (11:02→18:26)
[2016-10-21] MEDS: Valsartan 80 MG TABLET PO SCH (11:23)
--- NOTE | 2016-10-21 11:24 | Gastroenterology Consult Note ---
<PatriciaFloyd Manda - Last Filed: 10/21/16 11:21> Date of Encounter: 10/21/16 Time of Encounter: 10:20 - Assessment and plan (1) Abdominal pain Current Visit: Yes Status: Acute Assessment and plan: Continue pain control, IV antibiotics, Bentyl, and Pepcid. Plan for outpatient colonoscopy on 11/07/16. Last CT 10/15/2016 reported mild to moderate diverticulosis without CT evidence of diverticulitis. CT A/P on 09/14/2016 c/w uncomplicated diverticulitis. Pt has had 3-4 episodes of diverticulitis in the past 8 months. Qualifiers: Abdominal location: left lower quadrant Qualified Code(s): R10.32 - Left lower quadrant pain (2) History of diverticulitis of colon Current Visit: Yes Status: Acute Assessment and plan: Last CT A/P on 10/15 negative for diverticulitis. Plan for colonoscopy as outpatient. Discuss need for partial colectomy. (3) Fatty liver Current Visit: No Status: Acute Assessment and plan: Workup c/w NAFLD. (4) Nausea & vomiting Current Visit: Yes Status: Acute Assessment and plan: Zofran not improving symptoms. DC Zofran and start Phenergan. Qualifiers: Vomiting Intractability: non-intractable Qualified Code(s): R11.2 - Nausea with vomiting, unspecified - Time Spent With Patient Total time spent is greater than 50% in coordination of care (as documented) at patient's floor/unit and/or counseling patient: GI History of Present Illness - Data of Consult Patient: known to practice within the last 3 years Consult date: 10/21/16 Requesting Physician: Doris Pete MD - Consult Narrative Reason for consult: Abdominal pain History of present illness: Ms. Fernando is a 36 year old female with PMHx of endometriosis, PCOS, diverticulitis who presented to the ED with progressively worsening LLQ abdominal pain, chills, and intermittent diarrhea. She reported nausea and vomiting. Denied hematochezia or melena. She was evaluated in the ED on 2016, CT A/P done at that time reported mild to moderate diverticulosis without CT evidence of diverticulitis. CT A/P on 09/14/2016 c/w uncomplicated diverticulitis. She was seen in office 10/10/2016 and started on Cipro and Flagyl, and scheduled for colonoscopy 11/07. She was admitted due to outpatient treatment failure with oral medications. She was admitted recently on 09/18 with discharge 09/23 for acute diverticulitis. She was also noted to have hepatic steatosis on imaging, a liver w/u was initiated and all indications were NAFLD, normal LFTs. Patient has had 3 episodes of acute uncomplicated diverticulitis in the past 8 months. Abdominal pain started 10/09 and diarrhea 10/10. Procedures: None NSAIDs: None Anticoagulation: None Past Med Surg Social Fam HX - Past Medical History Medical history: asthma, hypertension, kidney stones Psychiatric history: anxiety - Past Surgical History Surgical History: appendectomy, , cholecystectomy, hysterectomy, other - Social History Smoking Status: Never smoker Smokeless Tobacco Status: No Alcohol use: none Drug use: none - Family History Mother Adopted: No Family Member Ethnicity: Non- Living Status: Still Living Hx Family Cardiac Disorders: No Hx Family Respiratory Disorders: No Hx Family Cancer: No Hx Family GI Disorders: No Hx Family Endocrine Disorder: No Hx Family Neuromuscular Disorders: No Hx Family Neurologic Disorders: No Hx Family HEENT Disorders: No Hx Family Autoimmune Disorders: No Father Family Member Ethnicity: Non- Living Status: Still Living Hx Family Cardiac Disorders: No Hx Family Respiratory Disorders: No Hx Family Cancer: No Hx Family GI Disorders: No Hx Family Endocrine Disorder: No Hx Family Neuromuscular Disorders: No Hx Family Neurologic Disorders: No Hx Family HEENT Disorders: No Hx Family Autoimmune Disorders: No - Gastrointestinal Gastrointestinal: Present: as per HPI - Constitutional Constitutional: as per HPI - EENT Eyes: as per HPI Ears: Present: as per HPI Nose, mouth and throat: Present: as per HPI - Cardiovascular Cardiovascular ROS: Present: as per HPI - Respiratory Respiratory IM: Present: as per HPI - Genitourinary Genitourinary: Absent: change in color, Urinary frequency - Neurological ROS Neurological GI: Present: as per HPI - Hematologic/Lymphatic Hematologic/Lymphatic pediatric: Present: as per HPI - Musculoskeletal Musculoskeletal ROS GI: Present: as per HPI - Integumentary Integumentary GI: Present: as per HPI - Psychiatric ROS Psychiatric GI: Present: as per HPI - Endocrine Endocrine IM: Present: as per HPI - Constitutional Vitals: Temp Pulse Resp BP Pulse Ox 98.2 F 94 16 148/108 95 10/21/16 10:56 10/21/16 10:56 10/21/16 10:56 10/21/16 10:56 10/21/16 10:56 General appearance: Present: cooperative, A&O X 3, no acute distress, answers questions appropriately - Head Head exam: Present: atraumatic, normocephalic - Eye Eye exam: Present: normal appearance, sclera anicteric - ENT ENT exam: Present: mucous membranes moist - Neck Neck exam general surgery: Present: normal inspection, trachea midline - Respiratory Respiratory exam: Present: CTAB. Absent: rales, rhonchi - Cardiovascular Cardiovascular exam: Present: RRR, +S1, +S2 - GI/Abdominal GI/Abdominal exam: Present: soft, tenderness (LLQ), no peritoneal signs. Absent : distended, firm, guarding - Rectal Rectal exam: Present: deferred - Extremities Exam Extremities exam: Present: warm - Neurological Exam Neurological exam: Present: no focal deficits - Psychiatric Psychiatric exam: Present: normal affect, normal mood - Skin Skin exam: Present: dry, intact, normal color, warm Results - Labs CBC & Chem 7: 10/20/16 17:54 10/20/16 17:54 Labs: Last Result Calcium 9.8 mg/dL (8.6-10.8) 10/20/16 17:54 C-Reactive Protein 21 mg/L (Less than 5) H 10/20/16 17:54 Entire Visit Hgb 13.0 g/dL (11.5-15.4) 10/20/16 17:54 Hct 39.4 % (35.3-44.9) 10/20/16 17:54 Total Bilirubin 0.7 mg/dL (0.2-1.2) 10/20/16 17:54 AST 14 Units/L (5-34) 10/20/16 17:54 ALT 16 Units/L (0-55) 10/20/16 17:54 Consult Discharge Plan - Plan Referrals: Carlos Malagon, PAC [Primary Care Provider] - <Marilyn Enriquez - Last Filed: 10/21/16 14:56> Date of Encounter: 10/21/16 - Time Spent With Patient Total time spent is greater than 50% in coordination of care (as documented) at patient's floor/unit and/or counseling patient: GI History of Present Illness - Data of Consult Requesting Physician: Doris Pete MD - Consult Narrative History of present illness: Ms. Fernando is a 36 year old female - Constitutional Vitals: Temp Pulse Resp BP Pulse Ox 98.2 F 94 16 148/108 95 10/21/16 10:56 10/21/16 10:56 10/21/16 10:56 10/21/16 10:56 10/21/16 10:56 Results - Labs CBC & Chem 7: 10/20/16 17:54 10/20/16 17:54 Labs: Last Result Calcium 9.8 mg/dL (8.6-10.8) 10/20/16 17:54 C-Reactive Protein 21 mg/L (Less than 5) H 10/20/16 17:54 Entire Visit Hgb 13.0 g/dL (11.5-15.4) 10/20/16 17:54 Hct 39.4 % (35.3-44.9) 10/20/16 17:54 Total Bilirubin 0.7 mg/dL (0.2-1.2) 10/20/16 17:54 AST 14 Units/L (5-34) 10/20/16 17:54 ALT 16 Units/L (0-55) 10/20/16 17:54 - Attending Attestation I examined this patient and my medical decision-making was reviewed with the BOOKMOBILE LIBRARIAN/PA/Advanced Practice Nurse/Resident Physician. I agree with the documented findings, disposition and treatment plan as described except to the extent set forth below. Patient still with abdominal pain and recent imaging unremarkable has been on antibiotic but not responding to. We will do an MRI of the abdomen to rule out other etiologies for her persistent pain and also to make sure that she does not have any complicated diverticulitis
[2016-10-21] MEDS: Lactobacillus 1 EACH CAP.SPRINK PO SCH ×2 (12:35→20:06)
[2016-10-21] MEDS: *HR* HYDROcodone/Acet 5/325 mg TABLET PO PRN ×2 (14:07→18:34)
[2016-10-22] MEDS: *HR* HYDROcodone/Acet 5/325 mg TABLET PO PRN ×2 (04:32→15:26)
[2016-10-22] MEDS: *HR* Promethazine 25 MG/ML VIAL IVP PRN ×2 (04:33→20:24)
[2016-10-22] MEDS: Valsartan 80 MG TABLET PO SCH (08:55)
[2016-10-22] MEDS: Famotidine 20 MG TABLET PO SCH (08:56)
[2016-10-22] MEDS: Lactobacillus 1 EACH CAP.SPRINK PO SCH ×2 (08:57→22:39)
[2016-10-22] MEDS: amLODIPine 5 MG TABLET PO SCH (08:57)
[2016-10-22] MEDS: MetroNIDAZOLE 500 MG/100 ML 500 MG/100 ML BAG IVPB SCH (08:57)
[2016-10-22] MEDS ORDERED: Valsartan 80 MG TABLET PO SCH ×2 (09:00→11:15)
[2016-10-22] MEDS: *HR* Morphine 2 MG/ML SYRINGE IVP PRN ×2 (09:17→22:41)
[2016-10-22] MEDS: Ondansetron 4 MG/2 ML VIAL IVP PRN ×2 (09:17→15:27)
[2016-10-22] MEDS ORDERED: SODIUM CHLORIDE/NAHCO3/KCL/PEG 4,000 ML SOLN.RECON PO ONE (14:36)
[2016-10-22] MEDS: Sennosides 8.6 MG TABLET PO SCH (15:16)
[2016-10-22] MEDS: metroNIDAZOLE 500 MG TABLET PO SCH ×2 (15:20→22:38)
--- NOTE | 2016-10-22 17:29 | Gastroenterology Progress Note ---
Date of Encounter: 10/22/16 Time of Encounter: 14:20 - Assessment and plan (1) Abdominal pain Current Visit: Yes Status: Acute Assessment and plan: Cont with LLQ pain, CT abd negative. Will do colon tomorrow Qualifiers: Abdominal location: left lower quadrant Qualified Code(s): R10.32 - Left lower quadrant pain - Time Spent With Patient Total time spent is greater than 50% in coordination of care (as documented) at patient's floor/unit and/or counseling patient: - Subjective Interval history: Continues to report mild left lower abdominal pain. Had total hysterectomy - Constitutional Vitals: Temp Pulse Resp BP Pulse Ox 98.3 F 108 18 127/77 97 10/22/16 16:53 10/22/16 16:53 10/22/16 16:53 10/22/16 16:53 10/22/16 16:53 General appearance: Present: cooperative, A&O X 3, no acute distress, answers questions appropriately - GI/Abdominal Additional comments: Mild LLQ tanderness Results - Labs CBC & Chem 7: 10/20/16 17:54 10/20/16 17:54 Labs: Last Result Calcium 9.8 mg/dL (8.6-10.8) 10/20/16 17:54 C-Reactive Protein 21 mg/L (Less than 5) H 10/20/16 17:54 Entire Visit Hgb 13.0 g/dL (11.5-15.4) 10/20/16 17:54 Hct 39.4 % (35.3-44.9) 10/20/16 17:54 Total Bilirubin 0.7 mg/dL (0.2-1.2) 10/20/16 17:54 AST 14 Units/L (5-34) 10/20/16 17:54 ALT 16 Units/L (0-55) 10/20/16 17:54 - VTE Reasons for not Prescribing Prophylaxis: Treatment not Indicated - Low risk for VTE Consult Discharge Plan - Plan Referrals: Carlos Malagon, PAC [Primary Care Provider] - 11/07/16 11:30 am
--- NOTE | 2016-10-22 19:44 | Internal Med Progress Note ---
Date of Encounter: 10/22/16 Time of Encounter: 10:30 - Assessment and plan (1) Constipation Current Visit: Yes Status: Acute Qualifiers: Constipation type: slow transit constipation Qualified Code(s): K59.01 - Slow transit constipation (2) Abdominal pain Current Visit: Yes Status: Acute Qualifiers: Abdominal location: left lower quadrant Qualified Code(s): R10.32 - Left lower quadrant pain (3) History of diverticulitis of colon Current Visit: Yes Status: Acute - Time Spent With Patient CAT scan abdomen and pelvis this was done today, no evidence of diverticulitis. Patient is afebrile , per GI need colonoscopy. Monitor electrolytes, recheck CBC. Add laxative. She is a pain medication to oral, patient is tolerating clear liquid. Awaiting GI input. May consider advancing diet if her pain is better. 25 - 35 minutes - Subjective Interval history: Patient continued to have diffuse abdominal pain more in left lower quadrant associated with nausea - Constitutional Vitals: Temp Pulse Resp BP Pulse Ox 98.3 F 108 18 127/77 97 10/22/16 16:53 10/22/16 16:53 10/22/16 16:53 10/22/16 16:53 10/22/16 16:53 General appearance: Present: mild distress, pleasant, obese, answers questions appropriately - Neck Neck exam general surgery: Present: supple, trachea midline. Absent: lymphadenopathy - Respiratory Respiratory exam: Present: decreased breath sounds. Absent: accessory muscle use, rales, rhonchi, wheezes - Cardiovascular Cardiovascular exam: Present: RRR, +S1, +S2. Absent: diastolic murmur, gallop, rubs, systolic murmur - Extremities Exam Extremities exam: Present: warm, radial pulses palpable and symetrical. Absent : calf tenderness, cyanotic, pedal edema - Skin Skin exam: Present: dry, intact Internal Medicine: Result - Labs CBC & Chem 7: 10/20/16 17:54 10/20/16 17:54 - VTE Reasons for not Prescribing Prophylaxis: Treatment not Indicated - Low risk for VTE Consult Discharge Plan - Plan Referrals: Carlos Malagon, PAC [Primary Care Provider] - 11/07/16 11:30 am
[2016-10-22] MEDS ORDERED: Polyethylene Glycol 3350 255 GM POWDER PO ONE (20:23)
[2016-10-23 05:43] LABS: Basophils % 0.4 %; Eosinophils # 0.4 K/mcL (0.0-0.6); Eosinophils % 5.2 %; Hematocrit 36.8 % (35.3-44.9); Hemoglobin 11.9 g/dL (11.5-15.4); Immature Granulocytes % 0.3 % (0-4); Mean Corpuscular HGB Conc 32.3 g/dL (31.6-35.5); Mean Corpuscular Hemoglobin 28.4 pg (28.0-33.3); Mean Corpuscular Volume 87.8 fL (83.0-100.0); Mean Platelet Volume 9.9 fL (9.4-12.4); Monocytes # 0.5 K/mcL (0.0-1.3); Monocytes % 7.8 %; Neutrophils # 4.8 K/mcL (1.6-8.9); Platelet Count 279 K/mcL (140-400); Red Blood Count 4.19 M/mcL (3.82-4.97); Red Cell Distribution Width 15.2 % (11.5-14.5); Segmented Neutrophils % 71.3 %
[2016-10-23 06:02] LABS: Alanine Aminotransferase 17 Units/L (0-55); Albumin 3.5 g/dL (3.5-5.0); Alkaline Phosphatase 87 Units/L (38-126); Aspartate Amino Transferase 17 Units/L (5-34); BUN/Creatinine Ratio 15 (6-26); Blood Urea Nitrogen 11 mg/dL (7-20); Calcium 9.3 mg/dL (8.6-10.8); Carbon Dioxide 25 mEq/L (19-29); Chloride 104 mEq/L (98-109); Globulin 3.6 g/dL (2.4-3.5); Glucose 95 mg/dL (70-99); Magnesium 1.8 mg/dL (1.6-2.6); Osmolality,Calculated 287 (280-300); Phosphorous 3.9 mg/dL (2.3-4.7); Potassium 3.6 mEq/L (3.5-4.5); Sodium 139 mEq/L (136-145); Total Protein 7.1 g/dL (6.0-8.3); eGFR For African Americans > 60 (> 60); eGFR For Non-African Americans > 60 (> 60)
[2016-10-23 06:19] LABS: Bilirubin,Total 1.2 mg/dL (0.2-1.2)
[2016-10-23] MEDS: Valsartan 80 MG TABLET PO SCH (07:34)
[2016-10-23] MEDS: metroNIDAZOLE 500 MG TABLET PO SCH ×3 (07:34→20:17)
[2016-10-23] MEDS: amLODIPine 5 MG TABLET PO SCH (07:34)
[2016-10-23] MEDS: Lactobacillus 1 EACH CAP.SPRINK PO SCH ×2 (07:34→20:17)
[2016-10-23] MEDS: Sennosides 8.6 MG TABLET PO SCH (07:37)
--- NOTE | 2016-10-23 09:36 | Internal Med Progress Note ---
Date of Encounter: 10/23/16 Time of Encounter: 09:34 - Assessment and plan (1) Abdominal pain Current Visit: Yes Status: Acute Qualifiers: Abdominal location: left lower quadrant Qualified Code(s): R10.32 - Left lower quadrant pain (2) History of diverticulitis of colon Current Visit: Yes Status: Acute (3) Gastritis Current Visit: Yes Status: Acute Qualifiers: Chronicity: unspecified Gastritis bleeding: presence of bleeding unspecified Qualified Code(s): K29.70 - Gastritis, unspecified, without bleeding (4) Anxiety about health Current Visit: Yes Status: Acute - Time Spent With Patient Plan * Add Protonix IV,would add a small dose of Ativan,change pain medication to IV temporarily .consider adding Cymbalta on discharge with her grief reaction and possible depression and anxiety. Colonoscopy will be done today, awaiting colonoscopy result may advance diet as tolerated after colonoscopy. Possible discharge in next 24 jannet 25 - 35 minutes - Subjective Interval history: Patient continued to have diffuse abdominal pain more in bilateral lower quadrant and epigastric area associated with nausea.patient is feeling anxious with the procedure, grief reaction with her son. Had episodes of vomiting overnig - Constitutional Vitals: Temp Pulse Resp BP Pulse Ox 97.4 F L 87 16 112/60 92 L 10/23/16 07:23 10/23/16 07:23 10/23/16 07:23 10/23/16 07:23 10/23/16 07:23 General appearance: Present: mild distress, pleasant, obese, answers questions appropriately - Head Head exam: Present: atraumatic, normocephalic - Neck Neck exam general surgery: Present: supple, trachea midline. Absent: lymphadenopathy - Respiratory Respiratory exam: Present: CTAB. Absent: accessory muscle use, rales, rhonchi, wheezes - GI/Abdominal GI/Abdominal exam: Present: normal bowel sounds, soft, tenderness (bilateral lower quadrant tenderness,epigastric area tenderness), no peritoneal signs. Absent: distended - Extremities Exam Extremities exam: Present: warm, radial pulses palpable and symetrical. Absent : calf tenderness, cyanotic, pedal edema - Skin Skin exam: Present: dry, intact Internal Medicine: Result - Labs CBC & Chem 7: 10/23/16 05:06 10/23/16 05:06 Labs: Short CBC 10/23/16 Range/Units 05:06 WBC 6.8 (4.3-11.1) K/mcL Hgb 11.9 (11.5-15.4) g/dL Hct 36.8 (35.3-44.9) % Plt Count 279 (140-400) K/mcL Neutrophils # 4.8 (1.6-8.9) K/mcL BMP 10/23/16 05:06 Sodium 139 Potassium 3.6 Chloride 104 Carbon Dioxide 25 BUN 11 Creatinine 0.74 Glucose 95 Calcium 9.3 Liver Function 10/23/16 Range/Units 05:06 Total Bilirubin 1.2 D (0.2-1.2) mg/dL AST 17 (5-34) Units/L ALT 17 (0-55) Units/L Alkaline Phosphatase 87 (38-126) Units/L Albumin 3.5 (3.5-5.0) g/dL - VTE Reasons for not Prescribing Prophylaxis: Treatment not Indicated - Low risk for VTE Consult Discharge Plan - Plan Referrals: Carlos Malagon, PAC [Primary Care Provider] - 11/07/16 11:30 am
[2016-10-23] MEDS ORDERED: *HR* LORazepam 2 MG/ML VIAL IVP ONE (09:43)
[2016-10-23] MEDS ORDERED: Pantoprazole 40 MG VIAL IVP ONE (09:44)
[2016-10-23] MEDS: *HR* Morphine 2 MG/ML SYRINGE IVP PRN (10:00)
[2016-10-23] MEDS: Ondansetron 4 MG/2 ML VIAL IVP PRN ×2 (10:00→16:07)
[2016-10-23] MEDS ORDERED: *HR* Morphine 2 MG/ML SYRINGE IVP PRN (11:17)
[2016-10-23] MEDS ORDERED: *HR* Midazolam HCl 5 MG/5 ML VIAL IVP ONE (11:26)
[2016-10-23] MEDS ORDERED: *HR* FentaNYL (PF) 100 MCG/2 ML VIAL ONE (11:26)
[2016-10-23] MEDS ORDERED: 0.9 % Sodium Chloride 1,000 ML IVC SCH (11:45)
[2016-10-23] MEDS: *HR* FentaNYL (PF) 100 MCG/2 ML VIAL IVP PRN ×4 (11:56→12:06)
[2016-10-23] MEDS: *HR* Midazolam HCl 5 MG/5 ML VIAL IVP PRN ×5 (11:56→12:09)
[2016-10-23] MEDS ORDERED: Simethicone 40 MG/0.6 ML MLS IR ONE (11:56)
--- NOTE | 2016-10-23 11:57 | Pre-Sedation Evaluation ---
Pre-sedation evaluation - Pre-sedation checklist Recent Vitals: Last Vital Signs Temp 97.7 F 10/23/16 10:26 Pulse 96 10/23/16 11:42 Resp 17 10/23/16 11:42 BP 153/90 10/23/16 11:42 Pulse Ox 95 10/23/16 11:42 ASA Classification *see protocol: CLASS II-Mild systemic disease Plan of Care: Pt appropriate candidate for procedure/moderate/conscious sedation , Risks/benefits of procedure/sedation discussed w/ patient/family
[2016-10-23] MEDS ORDERED: *HR* Promethazine 25 MG/ML VIAL ONE (11:58)
[2016-10-23] MEDS ORDERED: *HR* Promethazine 25 MG/ML VIAL IVP ONE (11:58)
[2016-10-23] MEDS: *HR* Promethazine 25 MG/ML VIAL IVP PRN ×2 (11:59→20:16)
--- NOTE | 2016-10-23 15:25 | Event Note ---
Date of Encounter: 10/23/16 Time of Encounter: 15:15 Dr. Enriquez contacted surgical team to discuss elective resection of sigmoid colon due to recurrent episodes of diverticulitis. She reports that she has been admitted 4 times in the last 8 months for recurrent LLQ pain and failed outpatient therapy. S/P colonoscopy today 10/23/[address] Enriquez which showed evidence of significant sigmoid diverticulosis with [address] scan of abdomen/pelvis, labs and medical records have been reviewed. Discussed the case with Dr. Aldana and we will plan for outpatient follow-up on November 04, 2016 to discuss elective sigmoid colon resection. The patient verbalized understanding. Appointment card placed in the patient's discharge folder. Recommend low fiber diet in the setting of diverticular inflammation.
[2016-10-23] MEDS: *HR* HYDROcodone/Acet 5/325 mg TABLET PO PRN (20:17)
[2016-10-24] MEDS: *HR* HYDROcodone/Acet 5/325 mg TABLET PO PRN ×3 (04:20→12:24)
[2016-10-24] MEDS: Lactobacillus 1 EACH CAP.SPRINK PO SCH (07:59)
[2016-10-24] MEDS: Valsartan 80 MG TABLET PO SCH (08:00)
[2016-10-24] MEDS: amLODIPine 5 MG TABLET PO SCH (08:00)
[2016-10-24] MEDS: metroNIDAZOLE 500 MG TABLET PO SCH (08:00)
[2016-10-24] MEDS: Sennosides 8.6 MG TABLET PO SCH (08:06)
[2016-10-24 11:16] VITALS: BP 125/80
--- NOTE | 2016-10-24 11:43 | Discharge Summary ---
Date of Encounter: 10/24/16 Time of Encounter: 09:25 - Discharge Diagnosis (1) Abdominal pain Priority: Primary Status: Acute Qualifiers: Abdominal location: left lower quadrant Qualified Code(s): R10.32 - Left lower quadrant pain (2) History of diverticulitis of colon Priority: Primary Status: Acute (3) Gastritis Priority: Primary Status: Acute Qualifiers: Chronicity: unspecified Gastritis bleeding: presence of bleeding unspecified Qualified Code(s): K29.70 - Gastritis, unspecified, without bleeding (4) Anxiety about health Priority: Secondary Status: Acute - Discharge Medications Prescriptions: Ciprofloxacin [Cipro] 500 mg PO BIDAC #14 tablet Lactobacillus [Culturelle] 1 each PO BID #60 cap.sprink MetroNIDAZOLE [Flagyl] 500 mg PO TID #21 tablet Omeprazole [PriLOSEC] 40 mg PO DAILY #30 capsule. Oxycodone HCl/Acetaminophen [Percocet 5-325 mg Tablet] 1 each PO TID PRN #30 tablet PRN Reason: Moderate Pain Polyethylene Glycol 3350 [MiraLAX] 17 gm PO DAILY #30 powd.pack Home Medications: Amlodipine [Norvasc] 5 mg PO DAILY 07/23/16 [History] Dicyclomine [Bentyl] 10 mg PO QID 10/21/16 [History] Hydroxyzine HCl 50 mg PO TID 10/21/16 [History] Promethazine [Phenergan] 12.5 - 25 mg PO Q6H PRN 10/21/16 [History] Valsartan 80 mg PO DAILY 10/21/16 [History] Ciprofloxacin [Cipro] 500 mg PO BIDAC #14 tablet 10/24/16 [Rx] Lactobacillus [Culturelle] 1 each PO BID #60 cap.sprink 10/24/16 [Rx] MetroNIDAZOLE [Flagyl] 500 mg PO TID #21 tablet 10/24/16 [Rx] Omeprazole [PriLOSEC] 40 mg PO DAILY #30 capsule. 10/24/16 [Rx] Oxycodone HCl/Acetaminophen [Percocet 5-325 mg Tablet] 1 each PO TID PRN #30 tablet 10/24/16 [Rx] Polyethylene Glycol 3350 [MiraLAX] 17 gm PO DAILY #30 powd.pack 10/24/16 [Rx] Allergies/Adverse Reactions: Allergies azithromycin [From Zithromax] Allergy (Verified 10/15/16 12:51) Abdominal Pain levofloxacin [From Levaquin] Allergy (Verified 10/15/16 12:51) Hives prochlorperazine [From Compazine] Allergy (Verified 10/15/16 12:51) Rash Sulfa (Sulfonamide Antibiotics) Allergy (Verified 10/15/16 12:51) Anaphylaxis Date of admission: 10/22/16 15:11 Primary care physician: Carlos Malagon Discharging clinician: Jaqueline Osullivan - Patient Status Disposition: Home, Self-Care Condition: Good Overall status at discharge: patient is progressing back to baseline - Discharge Instructions Instructions: Diverticulitis (DC) Follow Up With: Carlos Malagon PAC [Primary Care Provider] - 11/07/16 11:30 am Brock Aldana DO [Partnered Physician] - 11/01/16 Hospital course: Ms. Fernando is a 36 year old female with medical history significant for endometriosis, PCOS is status post hysterectomy and bilateral salpingo- oophorectomy. History of nephrolithiasis, presents with progressively worsening left lower abdominal pain as well as chills. She also reports intermittent diarrhea. Abdominal pain appears to be evolving as it now spread to the mid abdomen and left upper quadrant. It takes varrying intensities from pressure to colic exacerbations. No objective fever, no hematochezia. She reports nausea and vomiting. No weight loss. no urinary or new-onset neurological symptoms. No bleeding from any orifice.She reports poor appetite. She was evaluated in the ED on 10/15/2016, CT done at that time reported mild to moderate diverticulosis with CT evidence of diverticulitis. She was recently evaluated by her horseback riding instructor, Dr Enriquez, who prescribed Ciprofloxacin and Metronidazole po, and has scheduled her for colonoscopy on November 07. She has not observed improvement in her symptoms. She has had at least 2 bouts of Diverticulitis within the past 6 months. Gastroenterology had informed her she may need colectomy considering the freqency of epsiodes. We will start patient on Cipro and Flagyl ,Continue pain medication for pain control, IV antibiotics, Bentyl, and Pepcid. With her persistent symptom assessment or just recommended endoscopy to be done. Patient had a colonoscopy. Based on horseback riding instructor report to sigmoid diverticulosis was inflamed diverticulum. Surgery was consulted Plan for outpatient Follow up on 11/04/16. surgical team to discussed elective resection of sigmoid colon due to recurrent episodes of diverticulitis. Surgery will discuss with patient elective resection as an outpatient on November 04. Patient denies any suicide or homicide ideation. Patient was complaining of feeling anxious but she stated that she is taking versad which help her symptoms. Patient refused to start any antidepressant. She will follow up as an outpatient with her psychiatrist - Time Spent with Patient Total time spent providing and/or coordinating discharge services: Greater than 30 minutes - Constitutional Vitals: Temp Pulse Resp BP Pulse Ox 98.1 F 95 16 125/80 95 10/24/16 11:14 10/24/16 11:14 10/24/16 11:14 10/24/16 11:14 10/24/16 11:14 General appearance: Present: mild distress, pleasant, obese, answers questions appropriately - VTE Reasons for not Prescribing Prophylaxis: Treatment not Indicated - Low risk for VTE Documentation of Mechanical Device: Intermittent pneumatic compression device
[2016-10-24] MEDS ORDERED: *HR* HYDROcodone/Acet 5/325 mg TABLET PO ONE (12:34)
== END 2016-10-24 14:09 | disposition home or self-care (01) | DRG 244 ==
LOC: 3ANU 17:12 → EMEROO 17:12 → 3ANU 20:21
PROVIDERS: ADMIT Family Medicine; ATTEND Internal Medicine

== ENCOUNTER 2016-11-13 08:56 | Observation (INO) ==
--- NOTE | 2016-11-13 09:10 | Emergency Department Note ---
Disposition Clinical Impression: Abdominal pain, left lower quadrant, Obesity, Elevated blood pressure reading, Vomiting, Hypokalemia, Elevated C-reactive protein (CRP), Diverticulosis Disposition: Admitted As Inpatient Referrals: Carlos Malagon PAC [Primary Care Provider] - Forms: Work/School Release, ED Satisfaction Letter General Adult HPI - General Chief complaint: ED Abdominal Pain Stated complaint: ABD Pain,Constipation Time Seen by Provider: 11/13/16 09:09 Source: patient Limitations: no limitations - History of Present Illness HPI Narrative: 36-year-old female with history of diverticulitis reports the emergency department complaining of left lower abdominal pain. The patient has had recurrent diverticulitis with some outpatient failures per the medical record. She was in the ED a few days ago, she was evaluated and discharged. The patient is on ciprofloxacin and Flagyl. She is being evaluated by Dr. Aldana her surgeon, she reports she started her bowel prep for an outpatient barium enema yesterday, but had vomiting and she reports the test was aborted secondary to poor prep, she reports the test was rescheduled for today and that was obtained but she reports the poor prep limited its findings. Dr. Aldana was notified per the patient, and outpatient staff directed the patient to the ED, there are reports a CT has been recommended. The patient denies any chest pain or shortness of breath. No redness or pain sore throat or headache there is no history of back pain or urinary problems. She reports she has had emesis without bloody material. There is no history of black or bloody material in the stool. No history of trauma or rash. There is no history of vaginal discharge or bleeding reported. The patient is status post appendectomy cholecystectomy and hysterectomy. She is currently not anticoagulated per her history. Pain Scale: 10 - Related Data Home Medications Medication Instructions Recorded Confirmed Amlodipine [Norvasc] 5 mg PO DAILY 07/23/16 10/21/16 Dicyclomine [Bentyl] 10 mg PO QID 10/21/16 10/21/16 Hydroxyzine HCl 50 mg PO TID 10/21/16 10/21/16 Promethazine [Phenergan] 12.5 - 25 mg PO Q6H PRN 10/21/16 10/21/16 Valsartan 80 mg PO DAILY 10/21/16 10/21/16 Previous Rx's Medication Instructions Recorded Ciprofloxacin [Cipro] 500 mg PO BIDAC #14 tablet 10/24/16 Lactobacillus [Culturelle] 1 each PO BID #60 cap.sprink 10/24/16 MetroNIDAZOLE [Flagyl] 500 mg PO TID #21 tablet 10/24/16 Omeprazole [PriLOSEC] 40 mg PO DAILY #30 capsule. 10/24/16 Oxycodone HCl/Acetaminophen 1 each PO TID PRN #30 tablet 10/24/16 [Percocet 5-325 mg Tablet] Polyethylene Glycol 3350 [MiraLAX] 17 gm PO DAILY #30 powd.pack 10/24/16 Magic Mouthwash [Magic Mouthwash 10 ml PO QID #240 ml 10/26/16 BLM] Nystatin [Nystatin Suspension] 100,000 units PO QID #120 ml 10/26/16 Promethazine/Dextromethorphan 1 - 2 / PO QID #240 ml 10/26/16 [Promethazine-Dm Syrup] Ciprofloxacin [Cipro] 500 mg PO BID #20 tablet 11/08/16 Meloxicam [Mobic] 15 mg PO DAILY #7 tab 11/08/16 MetroNIDAZOLE [Flagyl] 500 mg PO TID #30 tablet 11/08/16 Ondansetron ODT [Zofran ODT] 4 mg SL Q6HR #10 tab.rapdis 11/08/16 Allergies Allergy/AdvReac Type Severity Reaction Status Date / Time azithromycin [From Zithromax] Allergy Abdominal Verified 11/13/16 09:06 Pain levofloxacin [From Levaquin] Allergy Hives Verified 11/13/16 09:06 prochlorperazine Allergy Rash Verified 11/13/16 09:06 [From Compazine] Sulfa (Sulfonamide Allergy Anaphylaxis Verified 11/13/16 09:06 Antibiotics) All systems ED: reviewed and negative except as stated. Past Medical History - Past Medical History Medical history: Reports: hypertension, other Surgical history: Reports: non-contributory, appendectomy, , cholecystectomy, hysterectomy, other Psychiatric history: Reports: anxiety CASH ANALYST history: Reports: endometriosis, polycystic ovary syndrome - Social History Smoking Status: Never smoker Smokeless Tobacco Status: No Alcohol use: Reports: none Drug use: Reports: none Physical Exam - General Limitations: no limitations General appearance: alert, in no apparent distress - Head Head exam: atraumatic, normocephalic, normal inspection - Eye Eye exam: Present: normal appearance, PERRL, EOMI - ENT ENT exam: normal exam, normal oropharynx, mucous membranes moist - Neck Neck exam: Present: normal inspection, full ROM, trachea midline - Chest Chest inspection: Present: symmetric chest wall rise. Absent: tenderness - Respiratory Respiratory exam: Present: normal lung sounds bilaterally. Absent: respiratory distress - Cardiovascular Cardiovascular exam: Present: regular rate, normal rhythm, normal heart sounds - Abdominal Exam Abdominal exam: Present: soft, tenderness, normal bowel sounds. Absent: distention, guarding, rebound, rigidity, trauma, pulsatile mass Abdominal tenderness: Present: LLQ, moderate - Extremities Exam Extremities exam: Present: normal inspection, full ROM, normal capillary refill. Absent: tenderness, pedal edema, joint swelling, calf tenderness - Expanded Lower Extremity Exam Neurovascular/Tendon exam: Absent: motor deficit, sensory deficit, tendon deficit, extremity cold to touch, pallor - Back Exam Back exam: Present: normal inspection, full ROM. Absent: tenderness, CVA tenderness (R), CVA tenderness (L), vertebral tenderness - Neurological Exam Neurological exam: Present: alert, oriented X3, CN II-XII intact. Absent: motor sensory deficit - Psychiatric Psychiatric exam: Present: normal affect, normal mood - Skin Skin exam: Present: warm, dry, intact, normal color. Absent: rash, cyanosis, diaphoresis, erythema, pallor, mottled Course Vital Signs Temperature 97.2 F L 11/13/16 09:02 Pulse Rate 106 11/13/16 09:02 Respiratory Rate 18 11/13/16 09:02 Blood Pressure 166/116 11/13/16 09:02 O2 Sat by Pulse Oximetry 98 11/13/16 09:02 Temperature 97.2 F L 11/13/16 09:02 Pulse Rate 105 11/13/16 12:46 Respiratory Rate 18 11/13/16 12:46 Blood Pressure 143/104 11/13/16 12:46 O2 Sat by Pulse Oximetry 96 11/13/16 12:46 Oxygen Delivery Oxygen Delivery Room Air Medical Decision Making - MDM Narrative Medical decision making narrative: The patient has significant abdominal pain. The patient had a barium enema and when they went to take her for CT scan, there was too much interference secondary to the barium contrast so they did not proceed with the study citing that the study would be unreliable as per the radiologist opinion. The patient has been in the ED twice in 1 week,, she has had a barium enema which was reportedly unreliable secondary to poor prep. She has a history of recurrent failed outpatient therapy for diverticulitis with recurrent bouts of diverticulitis. She has been taking Cipro and Flagyl outpatient and seems to still have uncontrolled abdominal pain. She appears to have failed outpatient antibiotic and pain therapy. Based on her persistent significant abdominal pain even after Dilaudid in the ED, 2 visits in the last week to the ED, recurrent diverticulitis with outpatient failures, inability to obtain adequate imaging, and elevated CRP, I felt it would be appropriate to put the patient the hospital for observation. I reviewed the case with Dr. Aldana who was aware of the patient's condition and had ordered the outpatient barium enemas. We both felt the patient would benefit from observation of the hospital primarily under medicine with a secondary surgical consult. IV Flagyl and Cipro were given in the ED. The patient is agreeable and does not feel comfortable going home. I discussed the case with the hospitalist on-call. - Lab Data Lab results reviewed: Yes I reviewed the patient's lab results. Result diagrams: 11/13/16 09:44 11/13/16 09:44 Lab Results 11/13/16 11/13/16 11/13/16 Range/Units 09:44 09:44 09:44 WBC 7.8 (4.3-11.1) K/mcL RBC 4.44 (3.82-4.97) M/mcL Hgb 12.5 (11.5-15.4) g/dL Hct 37.9 (35.3-44.9) % MCV 85.4 (83.0-100.0) fL MCH 28.2 (28.0-33.3) pg MCHC 33.0 (31.6-35.5) g/dL RDW 14.7 H (11.5-14.5) % Plt Count 311 (140-400) K/mcL MPV 9.5 (9.4-12.4) fL Immature Gran % 0.3 (0-4) % Seg Neutrophils % 69.8 % Lymphocytes % 19.5 % Monocytes % 7.2 % Eosinophils % 2.7 % Basophils % 0.5 % Neutrophils # 5.4 (1.6-8.9) K/mcL Lymphocytes # 1.5 (0.6-4.6) K/mcL Monocytes # 0.6 (0.0-1.3) K/mcL Eosinophils # 0.2 (0.0-0.6) K/mcL Basophils # 0.0 (0.0-0.2) K/mcL PT (9.4-12.1) Seconds INR APTT (26.0-36.0) Seconds Sodium 138 (136-145) mEq/L Potassium 3.4 L (3.5-4.5) mEq/L Chloride 104 (98-109) mEq/L Carbon Dioxide 24 (19-29) mEq/L BUN 9 (7-20) mg/dL Creatinine 0.76 (0.57-1.11) mg/dL Est GFR ( Amer) > 60 (> 60) Est GFR (Non-Af Amer) > 60 (> 60) BUN/Creatinine Ratio 12 (6-26) Glucose 100 H (70-99) mg/dL Calculated Osmolality 285 (280-300) Lactic Acid 1.2 (0.5-2.2) mmol/L Calcium 9.2 (8.6-10.8) mg/dL Total Bilirubin 1.2 (0.2-1.2) mg/dL Direct Bilirubin 0.4 (0.0-0.5) mg/dL Indirect Bilirubin 0.8 (0.0-1.2) mg/dL AST 21 (5-34) Units/L ALT 28 (0-55) Units/L Alkaline Phosphatase 100 (38-126) Units/L C-Reactive Protein (Less than 5) mg/L Serum Total Protein 8.0 (6.0-8.3) g/dL Albumin 3.8 (3.5-5.0) g/dL Globulin 4.2 H (2.4-3.5) g/dL Albumin/Globulin Ratio 0.9 L (1.1-2.2) Lipase 22 (8-78) Units/L 11/13/16 11/13/16 Range/Units 09:44 09:44 WBC (4.3-11.1) K/mcL RBC (3.82-4.97) M/mcL Hgb (11.5-15.4) g/dL Hct (35.3-44.9) % MCV (83.0-100.0) fL MCH (28.0-33.3) pg MCHC (31.6-35.5) g/dL RDW (11.5-14.5) % Plt Count (140-400) K/mcL MPV (9.4-12.4) fL Immature Gran % (0-4) % Seg Neutrophils % % Lymphocytes % % Monocytes % % Eosinophils % % Basophils % % Neutrophils # (1.6-8.9) K/mcL Lymphocytes # (0.6-4.6) K/mcL Monocytes # (0.0-1.3) K/mcL Eosinophils # (0.0-0.6) K/mcL Basophils # (0.0-0.2) K/mcL PT 11.5 (9.4-12.1) Seconds INR 1.1 APTT 31.1 (26.0-36.0) Seconds Sodium (136-145) mEq/L Potassium (3.5-4.5) mEq/L Chloride (98-109) mEq/L Carbon Dioxide (19-29) mEq/L BUN (7-20) mg/dL Creatinine (0.57-1.11) mg/dL Est GFR ( Amer) (> 60) Est GFR (Non-Af Amer) (> 60) BUN/Creatinine Ratio (6-26) Glucose (70-99) mg/dL Calculated Osmolality (280-300) Lactic Acid (0.5-2.2) mmol/L Calcium (8.6-10.8) mg/dL Total Bilirubin (0.2-1.2) mg/dL Direct Bilirubin (0.0-0.5) mg/dL Indirect Bilirubin (0.0-1.2) mg/dL AST (5-34) Units/L ALT (0-55) Units/L Alkaline Phosphatase (38-126) Units/L C-Reactive Protein 26 H (Less than 5) mg/L Serum Total Protein (6.0-8.3) g/dL Albumin (3.5-5.0) g/dL Globulin (2.4-3.5) g/dL Albumin/Globulin Ratio (1.1-2.2) Lipase (8-78) Units/L - Radiology Data Radiology results reviewed: Yes I reviewed the patient's radiology results.
[2016-11-13] MEDS ORDERED: *HR* HYDROmorphone (PF) 1 MG/ML SYRINGE IVP ONE ×2 (09:22→12:35)
[2016-11-13] MEDS ORDERED: *HR* Promethazine 25 MG/ML VIAL IVP ONE (09:22)
[2016-11-13 10:14] LABS: Basophils % 0.5 %; Eosinophils # 0.2 K/mcL (0.0-0.6); Eosinophils % 2.7 %; Hematocrit 37.9 % (35.3-44.9); Hemoglobin 12.5 g/dL (11.5-15.4); Immature Granulocytes % 0.3 % (0-4); Lymphocytes # 1.5 K/mcL (0.6-4.6); Lymphocytes % 19.5 %; Mean Corpuscular Hemoglobin 28.2 pg (28.0-33.3); Mean Corpuscular Volume 85.4 fL (83.0-100.0); Mean Platelet Volume 9.5 fL (9.4-12.4); Monocytes # 0.6 K/mcL (0.0-1.3); Monocytes % 7.2 %; Neutrophils # 5.4 K/mcL (1.6-8.9); Platelet Count 311 K/mcL (140-400); Red Blood Count 4.44 M/mcL (3.82-4.97); Red Cell Distribution Width 14.7 % (11.5-14.5); Segmented Neutrophils % 69.8 %
[2016-11-13 10:29] LABS: Alanine Aminotransferase 28 Units/L (0-55); Albumin 3.8 g/dL (3.5-5.0); Albumin/Globulin Ratio 0.9 (1.1-2.2); Alkaline Phosphatase 100 Units/L (38-126); Aspartate Amino Transferase 21 Units/L (5-34); BUN/Creatinine Ratio 12 (6-26); Bilirubin,Direct 0.4 mg/dL (0.0-0.5); Bilirubin,Indirect 0.8 mg/dL (0.0-1.2); Bilirubin,Total 1.2 mg/dL (0.2-1.2); Blood Urea Nitrogen 9 mg/dL (7-20); Calcium 9.2 mg/dL (8.6-10.8); Carbon Dioxide 24 mEq/L (19-29); Chloride 104 mEq/L (98-109); Globulin 4.2 g/dL (2.4-3.5); Glucose 100 mg/dL (70-99); Lipase 22 Units/L (8-78); Osmolality,Calculated 285 (280-300); Potassium 3.4 mEq/L (3.5-4.5); Sodium 138 mEq/L (136-145); eGFR For African Americans > 60 (> 60); eGFR For Non-African Americans > 60 (> 60)
[2016-11-13 10:43] LABS: INR 1.1; Prothrombin Time 11.5 Seconds (9.4-12.1)
[2016-11-13 10:45] LABS: Activated Partial Thrombo Time 31.1 Seconds (26.0-36.0)
[2016-11-13] MEDS ORDERED: MetroNIDAZOLE 500 MG/100 ML 500 MG/100 ML BAG IVPB ONE (13:43)
[2016-11-13 14:03] LABS: Bilirubin,Urine Negative (Negative); Blood,Urine Trace (Negative); Clarity,Urine Cloudy (Clear); Color,Urine Yellow (Yellow); Glucose,Urine (UA) Normal (Normal); Ketones,Urine Negative (Negative); Leukocyte Esterase,Urine Negative (Negative); Nitrite,Urine Negative (Negative); PH,Urine 5.5 pH Units (5.0-8.0); Protein,Urine Negative (Neg-Trace); Specific Gravity,Urine 1.018 (1.010-1.025); Urobilinogen,Urine Normal (Normal)
[2016-11-13 14:06] LABS: Bacteria,Urine None Seen per hpf (None-Few); Hyaline Casts,Urine Moderate per lpf (None-Few); RBC,Urine 0-3 per hpf (0-3); Squamous Epithelial Cell,Urine Many per lpf (None-Few); WBC,Urine 0-3 per hpf (0-3)
[2016-11-13 14:09] LABS: Amphetamine Screen,Urine Negative ng/mL (Cutoff=1000); Barbiturate Screen,Urine Negative ng/mL (Cutoff=200); Benzodiazepines Screen,Urine Negative ng/mL (Cutoff=200); Cannabinoid Screen,Urine Negative ng/mL (Cutoff = 50); Cocaine Screen,Urine Negative ng/mL (Cutoff= 300); Opiate Screen,Urine Positive ng/mL (Cutoff=300); Phencyclidine Screen,Urine Negative ng/mL (Cutoff=25)
[2016-11-13] MEDS ORDERED: Ondansetron 4 MG/2 ML VIAL IVP PRN ×2 (14:53→20:25)
[2016-11-13] MEDS ORDERED: Naloxone 0.4 MG/ML INJ IVP PRN (14:53)
--- NOTE | 2016-11-13 15:11 | Internal Med History&Physical ---
Date of Encounter: 11/13/16 Time of Encounter: 15:05 Assessment and Plan (1) Diverticulitis Current visit: No Status: Acute Based on physical exam and history of recurrent diverticulitis. Patient does not have leukocytosis or measured fever here at hospital. Being worked up for possible partial colectomy by Dr. Aldana. - IV cipro/flagyl (patient has levofloxacin allergy listed, however has been taking cipro at home without difficulty) - IV fluids - General surgery consulted, appreciate assistance - NPO - Pain medication PRN - Antiemetics PRN (2) Hypokalemia Current visit: Yes Status: Acute K 3.4 in setting of vomiting - Replace K (3) Asthma Current visit: No Status: Chronic Respiratory status normal. - monitor Qualifiers: Asthma severity: mild intermittent Asthma complication type: uncomplicated Qualified Code(s): J45.20 - Mild intermittent asthma, uncomplicated Internal Medicine - H&P: HPI Chief complaint: Abdominal pain Admitted From: Emergency Dept Plans for Post Hospital Care: Home History of present illness: Ms. Fernando is a 36 year old female with history of recurrent diverticulitis, hypertension and anxiety who presented to the ER this afternoon because of severe left lower quadrant abdominal pain. She states that she has had issues with diverticulitis since 12/2015 and has been admitted six times for inpatient treatment. She has been evaluated by Dr. Enriquez with gastroenterology and Dr. Aldana from general surgery. Dr. Enriquez performed a colonoscopy 10/2016 at a time when the patient thought her symptoms were improved, but the colonoscopy, per her report, showed active diverticulitis. At times she will feel improvement in pain while she is on cipro/flagyl, but within several days of stopping the medication she will have return of symptoms. She states that Dr. Aldana is planning for surgical excision of the affected part of her sigmoid colon later this month, and he has ordered barium enema to be performed today. She underwent the test but then had severe pain and was sent to the ER for further evaluation. For the past few days the pain is located in the left lower quadrant and radiates toward the left upper quadrant, which she states is new - in the past the pain was located exclusively in the LLQ. She has had subjective fever and chills but has not checked her temperature. She has been vomiting the past few days, which she thinks is secondary to the severe pain. She did the bowel prep for her barium enema and was passing clear stool this morning before the study, had no blood in the stool. Past Med Surg Social Fam HX - Past Medical History Medical history: asthma, hypertension, kidney stones, other Psychiatric history: anxiety - Past Surgical History Surgical History: non-contributory, appendectomy, , cholecystectomy, hysterectomy, other - Social History Smoking Status: Never smoker Smokeless Tobacco Status: No Alcohol use: none Drug use: none Current living situation: Home - Family History Mother Adopted: No Family Member Ethnicity: Non- Living Status: Still Living Hx Family Cardiac Disorders: No Hx Family Respiratory Disorders: No Hx Family Cancer: No Hx Family GI Disorders: No Hx Family Endocrine Disorder: No Hx Family Neuromuscular Disorders: No Hx Family Neurologic Disorders: No Hx Family HEENT Disorders: No Hx Family Autoimmune Disorders: No Father Family Member Ethnicity: Non- Living Status: Still Living Hx Family Cardiac Disorders: No Hx Family Respiratory Disorders: No Hx Family Cancer: No Hx Family GI Disorders: No Hx Family Endocrine Disorder: No Hx Family Neuromuscular Disorders: No Hx Family Neurologic Disorders: No Hx Family HEENT Disorders: No Hx Family Autoimmune Disorders: No Internal Medicine - H&P: Meds Amlodipine [Norvasc] 5 mg PO DAILY 07/23/16 [History] Ciprofloxacin [Cipro] 500 mg PO BID #20 tablet 11/08/16 [Rx] Meloxicam [Mobic] 15 mg PO DAILY #7 tab 11/08/16 [Rx] MetroNIDAZOLE [Flagyl] 500 mg PO TID #30 tablet 11/08/16 [Rx] Ondansetron ODT [Zofran ODT] 4 mg SL Q6HR #10 tab.rapdis 11/08/16 [Rx] Lactobacillus [Culturelle] 1 cap PO BID 11/13/16 [History] Psyllium Husk [Fiber] 0.52 gm PO DAILY 11/13/16 [History] Allergies azithromycin [From Zithromax] Allergy (Verified 11/13/16 09:06) Abdominal Pain levofloxacin [From Levaquin] Allergy (Verified 11/13/16 09:06) Hives prochlorperazine [From Compazine] Allergy (Verified 11/13/16 09:06) Rash Sulfa (Sulfonamide Antibiotics) Allergy (Verified 11/13/16 09:06) Anaphylaxis All Systems PM: A 10-system review of systems was performed and is negative for pertinent findings except as documented above in the HPI. - Constitutional Vitals: Temp Pulse Resp BP Pulse Ox 97.2 F L 105 18 143/104 96 11/13/16 09:02 11/13/16 12:46 11/13/16 14:34 11/13/16 14:34 11/13/16 12:46 General appearance: Present: A&O X 3 Exam: Patient grimacing in pain when I entered the room, but able to converse with me. Appears stated age. - Head Head exam: Present: atraumatic - Eye Eye exam: Present: EOMI, sclera anicteric - ENT ENT exam: Present: mucous membranes moist - Neck Neck exam general surgery: Present: supple - Respiratory Respiratory exam: Present: CTAB - Cardiovascular Cardiovascular exam: Present: RRR. Absent: diastolic murmur, gallop, rubs, systolic murmur - GI/Abdominal GI/Abdominal exam: Present: soft, tenderness (Tender left lower quadrant and left upper quadrant with light and deep palpation. No rebound or guarding. Right side of abdomen without tenderness. Bowel sounds hypoactive) - Extremities Exam Extremities exam: Absent: pedal edema, tenderness - Neurological Exam Neurological exam: Present: no focal deficits - Skin Skin exam: Absent: rash Internal Med - H&P Results - Labs CBC & Chem 7: 11/13/16 09:44 11/13/16 09:44
[2016-11-13] MEDS: MetroNIDAZOLE 500 MG/100 ML 500 MG/100 ML BAG IVPB SCH (16:01)
[2016-11-13] MEDS: 0.9 % Sodium Chloride 1,000 ML IVC SCH (16:09)
--- NOTE | 2016-11-13 17:11 | General Surgery Consult Note ---
Date of Encounter: 11/13/16 Time of Encounter: 17:00 Assessment and Plan (1) Abdominal pain, left lower quadrant Current Visit: Yes Status: Chronic May have clear liquids Bowel prep to clear contrast Repeat CT of abdomen/pelvis after bowel prep- next 24-48 hours Evalute etiology for LLQ abdominal pain Supportive care/pain control Serial abdominal exams (2) Diverticulosis Current Visit: Yes Status: Chronic Barium enema shows mild to moderate diverticulosis of the sigmoid and mild diverticulosis of the descending colon Supportive care Await CT evaluation in the next 24-48 hours Qualifiers: Diverticulosis site: diverticulosis of large intestine Diverticulosis bleeding: diverticulosis without bleeding Qualified Code(s): K57.30 - Diverticulosis of large intestine without perforation or abscess without bleeding (3) Asthma Current Visit: No Status: Chronic Qualifiers: Asthma severity: mild intermittent Asthma complication type: uncomplicated Qualified Code(s): J45.20 - Mild intermittent asthma, uncomplicated (4) Morbid obesity with BMI of 40.0-44.9, adult Current Visit: No Status: Chronic (5) DVT prophylaxis Current Visit: No Status: Acute EPCDs to bilateral lower extremities for DVT prophylaxis History of Present Illness Consult date: 11/13/16 Reason for consult: other (Diverticular disease) Requesting physician: Kacy Prajapati History of present illness: Ms. Fernando is a 36 year old female with a past medical history significant for kidney stones, PCOS, obesity, asthma, endometriosis, seizure d/o. She has been hospitalized on multiple occasions in the past year for recurrent abdominal pain. She did recently undergo a colonoscopy with Dr. Enriquez for abdominal pain and was found to have diverticulosis of the sigmoid colon with mild inflammation noted to one diverticulum. She was treated with antibiotic therapy (Cipro and Flagyl) and was scheduled to follow-up as an outpatient with Dr. Aldana. She states that she did see Dr. Aldana and he scheduled her to have a barium enema. She attempted a bowel prep for the radiologic study and states that she still had stool in the colon and the test was not performed. She states that she repeated the prep yesterday to attempt to repeat the test today. She reports severe LLQ pain radiating to the LUQ and umbilicus. She states this is the worst that her pain has been. She admits to nausea and vomiting but denies any hematemesis or coffee ground emesis. She admits to having chills but did not check her temperature. She states that she was passing clear liquid and she did go for her test this morning. There continued to be formed stool in the colon. The test was attempted per Dr. Aldana's instructions. The patient states that she was sent for a CT scan due to severe pain after her test but this was unable to be complete due to retained contrast from the barium enema. She denies any weight loss but admits to weight gain. Denies any difficulty with urination. Denies any chest pain or shortness of breath. She states that every time she goes off of her antibiotics (cipro and flagyl), she has recurrence of her symptoms. We have been asked to see and evaluate the patient for recommendations. Past Med Surg Social Fam HX - Past Medical History Source: patient, old records reviewed Medical history: asthma, hypertension, kidney stones, seizures, other (PCOS, Obesity, endometriosis) Psychiatric history: anxiety - Past Surgical History Surgical History: non-contributory, appendectomy, (X2), cholecystectomy, hysterectomy, other (multiple abdominal surgeries for endometriosis; multiple D&Cs; ERCP, colonoscopy 10/2016; T&A ) - Social History Smoking Status: Never smoker Smokeless Tobacco Status: No Alcohol use: none Drug use: none Current living situation: Home - Independent Activity Level: Independent ambulation - Family History Mother Adopted: No Family Member Ethnicity: Non- Living Status: Still Living Hx Family Cardiac Disorders: No Hx Family Respiratory Disorders: No Hx Family Cancer: No Hx Family GI Disorders: No Hx Family Endocrine Disorder: No Hx Family Neuromuscular Disorders: No Hx Family Neurologic Disorders: No Hx Family HEENT Disorders: No Hx Family Autoimmune Disorders: No Father Family Member Ethnicity: Non- Living Status: Still Living Hx Family Cardiac Disorders: No Hx Family Respiratory Disorders: No Hx Family Cancer: No Hx Family GI Disorders: No Hx Family Endocrine Disorder: No Hx Family Neuromuscular Disorders: No Hx Family Neurologic Disorders: No Hx Family HEENT Disorders: No Hx Family Autoimmune Disorders: No Medications and Allergies Amlodipine [Norvasc] 5 mg PO DAILY 07/23/16 [History] Ciprofloxacin [Cipro] 500 mg PO BID #20 tablet 11/08/16 [Rx] Meloxicam [Mobic] 15 mg PO DAILY #7 tab 11/08/16 [Rx] MetroNIDAZOLE [Flagyl] 500 mg PO TID #30 tablet 11/08/16 [Rx] Ondansetron ODT [Zofran ODT] 4 mg SL Q6HR #10 tab.rapdis 11/08/16 [Rx] Lactobacillus [Culturelle] 1 cap PO BID 11/13/16 [History] Psyllium Husk [Fiber] 0.52 gm PO DAILY 11/13/16 [History] Allergies azithromycin [From Zithromax] Allergy (Verified 11/13/16 09:06) Abdominal Pain levofloxacin [From Levaquin] Allergy (Verified 11/13/16 09:06) Hives prochlorperazine [From Compazine] Allergy (Verified 11/13/16 09:06) Rash Sulfa (Sulfonamide Antibiotics) Allergy (Verified 11/13/16 09:06) Anaphylaxis Review of Systems All systems PM: reviewed and no additional remarkable complaints except as stated (in the HPI) All systems PM: A 10-system review of systems was performed and is negative for pertinent findings except as documented above in the HPI. General Surgery Exam Initial Vital Signs Temp Pulse Resp BP Pulse Ox 97.2 F L 106 18 166/116 98 11/13/16 09:02 11/13/16 09:02 11/13/16 09:02 11/13/16 09:02 11/13/16 09:02 - General physical appearance well developed, well nourished, no distress, obese - Eyes normal ocular movement - ENT normal mucosa, atraumatic, normocephalic - Neck trachea midline - Respiratory normal respiratory effort, clear to auscultation - Cardiovascular Cardiovascular exam: Present: RRR, 15, 16 - Abdomen Abdomen general surgery: Present: bowel sounds present, soft, tender Abdominal Tenderness: Present: LUQ, LLQ, suprapubic - Integumentary Integumentary general surgery: Present: warm and dry - Neurologic Present: CN 2-12 grossly intact - Psychiatric Psychiatric general surgery: Present: appropriate, oriented to person, oriented to place, oriented to time, speech is normal, memory intact Exam Initial Vital Signs Temp Pulse Resp BP Pulse Ox 97.2 F L 106 18 166/116 98 11/13/16 09:02 11/13/16 09:02 11/13/16 09:02 11/13/16 09:02 11/13/16 09:02 Results - Labs 11/13/16 09:44 11/13/16 09:44 Abnormal lab results RDW 14.7 % (11.5-14.5) H 11/13/16 09:44 Potassium 3.4 mEq/L (3.5-4.5) L 11/13/16 09:44 Glucose 100 mg/dL (70-99) H 11/13/16 09:44 C-Reactive Protein 26 mg/L (Less than 5) H 11/13/16 09:44 Globulin 4.2 g/dL (2.4-3.5) H 11/13/16 09:44 Albumin/Globulin Ratio 0.9 (1.1-2.2) L 11/13/16 09:44 Urine Clarity Cloudy (Clear) A 11/13/16 13:45 Urine Blood Trace (Negative) H 11/13/16 13:45 Ur Squamous Epith Cells Many per lpf (None-Few) H 11/13/16 13:45 Hyaline Casts Moderate per lpf (None-Few) H 11/13/16 13:45 Urine Opiates Screen Positive ng/mL (Dljvhn=082) H 11/13/16 13:45 All other labs normal. - Imaging Additional studies: Abdomen/Pelvis CT 11/13/16 09:15 IMPRESSION: 1. Only a data communications analyst image was obtained. 2. Extensive barium within the colon from barium enema performed earlier today. This would cause extensive streak artifact severely limiting examination. D/ / Issa Davison MD / Issa Davison MD Interpreting Provider: Issa Davison MD Chest/Abdomen X-ray 11/13/16 11:18 IMPRESSION: Unremarkable abdomen, with moderate residual contrast throughout the nondistended colon. D/ / Sg Reich MD / Sg Reich MD Interpreting Provider: Sg Reich MD Consult Discharge Plan - Plan Referrals: Carlos Malagon, PAC [Primary Care Provider] - - Attending Attestation I examined this patient and my medical decision-making was reviewed with the ENTERPRISE DATA ARCHITECT/PA/Advanced Practice Nurse/Resident Physician. I agree with the documented findings, disposition and treatment plan as described except to the extent set forth below.
[2016-11-13] MEDS: *HR* HYDROmorphone (PF) 1 MG/ML SYRINGE IVP PRN ×2 (17:20→21:18)
[2016-11-13] MEDS ORDERED: Polyethylene Glycol 3350 255 GM POWDER PO ONE (17:23)
[2016-11-13] MEDS ORDERED: Promethazine 25 MG in 0.9 % Sodium Chloride 50 ML IVPB STA (20:24)
[2016-11-14] MEDS: MetroNIDAZOLE 500 MG/100 ML 500 MG/100 ML BAG IVPB SCH ×4 (00:02→23:52)
[2016-11-14] MEDS: 0.9 % Sodium Chloride 1,000 ML IVC SCH ×3 (00:02→21:33)
[2016-11-14] MEDS: *HR* HYDROmorphone (PF) 1 MG/ML SYRINGE IVP PRN ×6 (01:21→21:50)
[2016-11-14] MEDS: Promethazine 12.5 MG in 0.9 % Sodium Chloride 50 ML IVPB PRN ×2 (01:46→11:02)
[2016-11-14 05:52] LABS: Hematocrit 33.5 % (35.3-44.9); Mean Corpuscular HGB Conc 31.6 g/dL (31.6-35.5); Mean Corpuscular Volume 88.4 fL (83.0-100.0); Mean Platelet Volume 9.6 fL (9.4-12.4); Platelet Count 264 K/mcL (140-400); Red Blood Count 3.79 M/mcL (3.82-4.97)
[2016-11-14 05:53] LABS: Hemoglobin 10.6 g/dL (11.5-15.4)
[2016-11-14 06:22] LABS: BUN/Creatinine Ratio 14 (6-26); Blood Urea Nitrogen 10 mg/dL (7-20); Calcium 8.3 mg/dL (8.6-10.8); Carbon Dioxide 23 mEq/L (19-29); Chloride 108 mEq/L (98-109); Glucose 94 mg/dL (70-99); Osmolality,Calculated 287 (280-300); Potassium 3.4 mEq/L (3.5-4.5); Sodium 139 mEq/L (136-145); eGFR For African Americans > 60 (> 60); eGFR For Non-African Americans > 60 (> 60)
[2016-11-14] MEDS: amLODIPine 5 MG TABLET PO SCH (09:37)
--- NOTE | 2016-11-14 12:21 | Internal Med Progress Note ---
Date of Encounter: 11/14/16 Time of Encounter: 12:18 - Assessment and plan (1) Abdominal pain Current Visit: No Status: Chronic Assessment and plan: still has abdomial pain but says its better. on clears for now. plan for CT abd today , supportive pain conntrol. serial abdominal exams, will follow results. Qualifiers: Abdominal location: generalized Qualified Code(s): R10.84 - Generalized abdominal pain (2) Diverticulosis Current Visit: Yes Status: Chronic Assessment and plan: Barium enema shows mild to moderate diverticulosis of the sigmoid and mild diverticulosis of the descending colon Supportive care Await CT evaluation today. will follow surgical recommendations. was being worked for partial colectomy with Dr. Aldana, she has had multiple hospital admissions within a last few months for the flare ups of acute diverticulitis. Qualifiers: Diverticulosis site: diverticulosis of large intestine Diverticulosis bleeding: diverticulosis without bleeding Qualified Code(s): K57.30 - Diverticulosis of large intestine without perforation or abscess without bleeding (3) Morbid obesity with BMI of 40.0-44.9, adult Current Visit: No Status: Chronic (4) HTN (hypertension) Current Visit: No Status: Chronic Assessment and plan: stable. Qualifiers: Hypertension type: essential hypertension Qualified Code(s): I10 - Essential (primary) hypertension - Time Spent With Patient 25 - 35 minutes - Subjective Interval history: seen at the beside, reports that she still feels uncomfortable with some pain. nauseated still, denies any vomiting Being worked up for possible partial colectomy by Dr. Aldana. - Constitutional Vitals: Temp Pulse Resp BP Pulse Ox 97.6 F 81 19 99/65 94 L 11/14/16 05:35 11/14/16 05:35 11/14/16 05:35 11/14/16 05:35 11/14/16 05:35 General appearance: Present: A&O X 3 Exam: Exam: Patient grimacing in pain when I entered the room, but able to converse with me. Appears stated age. - Head Head exam: Present: atraumatic - Eye Eye exam: Present: EOMI, sclera anicteric - ENT ENT exam: Present: mucous membranes moist - Neck Neck exam general surgery: Present: supple - Respiratory Respiratory exam: Present: CTAB - Cardiovascular Cardiovascular exam: Present: RRR. Absent: diastolic murmur, gallop, rubs, systolic murmur - GI/Abdominal GI/Abdominal exam: Present: soft, tenderness (Tender left lower quadrant and left upper quadrant with light and deep palpation. No rebound or guarding. Right side of abdomen without tenderness. Bowel sounds hypoactive) - Extremities Exam Extremities exam: Absent: pedal edema, tenderness - Neurological Exam Neurological exam: Present: no focal deficits - Skin Skin exam: Absent: rash Internal Medicine: Result - Labs CBC & Chem 7: 11/14/16 04:42 11/14/16 04:30 Labs: Short CBC 11/14/16 Range/Units 04:42 WBC 4.9 (4.3-11.1) K/mcL Hgb 10.6 L D (11.5-15.4) g/dL Hct 33.5 L (35.3-44.9) % Plt Count 264 (140-400) K/mcL BMP 11/14/16 04:30 Sodium 139 Potassium 3.4 L Chloride 108 Carbon Dioxide 23 BUN 10 Creatinine 0.73 Glucose 94 Calcium 8.3 L - ABG Interpretation ABG results: PT/INR, D-dimer PT 11.5 Seconds (9.4-12.1) 11/13/16 09:44 Consult Discharge Plan - Plan Referrals: Carlos Malagon, PAC [Primary Care Provider] -
--- NOTE | 2016-11-14 17:03 | General Surgery Progress Note ---
Date of Encounter: 11/14/16 Time of Encounter: 17:00 - Assessment and Plan (1) Abdominal pain, left lower quadrant Current Visit: Yes Status: Chronic Clear liquid diet Bowel prep to clear contrast. Pt. has had 8-9 BM's today. Will send for repeat CT abd/pelvis. Evalute etiology for LLQ abdominal pain Supportive care/pain control Serial abdominal exams (2) Asthma Current Visit: No Status: Chronic Qualifiers: Asthma severity: mild intermittent Asthma complication type: uncomplicated Qualified Code(s): J45.20 - Mild intermittent asthma, uncomplicated (3) Diverticulosis Current Visit: Yes Status: Chronic Barium enema shows mild to moderate diverticulosis of the sigmoid and mild diverticulosis of the descending colon Supportive care Await CT evaluation Qualifiers: Diverticulosis site: diverticulosis of large intestine Diverticulosis bleeding: diverticulosis without bleeding Qualified Code(s): K57.30 - Diverticulosis of large intestine without perforation or abscess without bleeding (4) DVT prophylaxis Current Visit: No Status: Acute EPCDs to bilateral lower extremities for DVT prophylaxis (5) Morbid obesity with BMI of 40.0-44.9, adult Current Visit: No Status: Chronic Subjective Patient reports: still having pain, bowel movement, afebrile Narrative: Patient seen and examined at bedside. She had a bowel prep yesterday and has had 8-9 bowel movements today. Will obtain a CT abd/pelvis today. Reports nausea and LLQ abdominal pain 04/10. Afebrile. Objective Vital Signs - Last 8 Hours Temp Pulse Resp BP Pulse Ox 11/14/16 15:40 98.1 F 85 16 149/90 94 L 11/14/16 12:24 97.9 F 80 16 137/84 94 L Intake and Output 11/14/16 11/14/16 11/14/16 07:59 15:59 23:59 Intake Total 1150.5 / 1150.5 1390.5 / 1390.5 Output Total 500 / 500 Balance 1150.5 / 1150.5 890.5 / 890.5 Intake: IV Fluids 1150.5 / 1150.5 1150.5 / 1150.5 0.9 % Sodium Chloride 1, 1000 / 1000 1000 / 1000 000 ML @ 125 mls/hr IVC . Q8H [facility] Rx#:[id number] Flagyl 500 MG/100 ML 500 100 / 100 100 / 100 mg In 100 ml @ 100 mls/hr IVPB Q8HR [facility] Rx#: [id number] Phenergan 12.5 MG In 0.9 50.5 / 50.5 50.5 / 50.5 % Sodium Chloride 50 ML @ 204 mls/hr IVPB Q6HR PRN Rx#:[id number] Oral 240 / 240 Output: Urine 500 / 500 Other: Meal Lunch Percent of Meal Consumed 0% # Voids 1 Blood Glucose* 91 - Additional Exam - General physical appearance well developed, well nourished, no distress, obese - Eyes normal ocular movement - ENT normal mucosa, atraumatic, normocephalic - Neck trachea midline - Respiratory normal respiratory effort, clear to auscultation - Cardiovascular Cardiovascular exam: Present: RRR, 15, 16 - Abdomen Abdomen general surgery: Present: bowel sounds present, soft, tender Abdominal Tenderness: Present: LUQ, LLQ, suprapubic - Integumentary Integumentary general surgery: Present: warm and dry - Neurologic Present: CN 2-12 grossly intact - Psychiatric Psychiatric general surgery: Present: appropriate, oriented to person, oriented to place, oriented to time, speech is normal, memory intact - Labs 11/14/16 04:42 11/14/16 04:30 Diabetes panel 11/14/16 Range/Units 04:30 Sodium 139 (136-145) mEq/L Potassium 3.4 L (3.5-4.5) mEq/L Chloride 108 (98-109) mEq/L Carbon Dioxide 23 (19-29) mEq/L BUN 10 (7-20) mg/dL Creatinine 0.73 (0.57-1.11) mg/dL Glucose 94 (70-99) mg/dL Calcium 8.3 L (8.6-10.8) mg/dL Calcium panel 11/14/16 Range/Units 04:30 Calcium 8.3 L (8.6-10.8) mg/dL Pituitary panel 11/14/16 Range/Units 04:30 Sodium 139 (136-145) mEq/L Potassium 3.4 L (3.5-4.5) mEq/L Chloride 108 (98-109) mEq/L Carbon Dioxide 23 (19-29) mEq/L BUN 10 (7-20) mg/dL Creatinine 0.73 (0.57-1.11) mg/dL Glucose 94 (70-99) mg/dL Calcium 8.3 L (8.6-10.8) mg/dL Adrenal panel 11/14/16 Range/Units 04:30 Sodium 139 (136-145) mEq/L Potassium 3.4 L (3.5-4.5) mEq/L Chloride 108 (98-109) mEq/L Carbon Dioxide 23 (19-29) mEq/L BUN 10 (7-20) mg/dL Creatinine 0.73 (0.57-1.11) mg/dL Glucose 94 (70-99) mg/dL Calcium 8.3 L (8.6-10.8) mg/dL Consult Discharge Plan - Plan Referrals: Carlos Malagon, PAC [Primary Care Provider] -
[2016-11-14] MEDS: *HR* Heparin 5,000 UNIT/ML VIAL SQ SCH ×2 (20:22→20:31)
[2016-11-14] MEDS: *HR* LORazepam 2 MG/ML VIAL IVP PRN (21:32)
[2016-11-15] MEDS: *HR* HYDROmorphone (PF) 1 MG/ML SYRINGE IVP PRN ×2 (01:49→06:39)
[2016-11-15] MEDS: Promethazine 12.5 MG in 0.9 % Sodium Chloride 50 ML IVPB PRN ×2 (01:49→07:51)
[2016-11-15] MEDS: *HR* Heparin 5,000 UNIT/ML VIAL SQ SCH (05:18)
[2016-11-15] MEDS: *HR* LORazepam 2 MG/ML VIAL IVP PRN (05:21)
[2016-11-15 05:42] LABS: Hematocrit 32.7 % (35.3-44.9); Hemoglobin 10.4 g/dL (11.5-15.4); Mean Corpuscular HGB Conc 31.8 g/dL (31.6-35.5); Mean Corpuscular Hemoglobin 28.6 pg (28.0-33.3); Mean Corpuscular Volume 89.8 fL (83.0-100.0); Mean Platelet Volume 10.1 fL (9.4-12.4); Platelet Count 227 K/mcL (140-400); Red Blood Count 3.64 M/mcL (3.82-4.97); Red Cell Distribution Width 14.7 % (11.5-14.5)
[2016-11-15 06:00] LABS: BUN/Creatinine Ratio 8 (6-26); Blood Urea Nitrogen 6 mg/dL (7-20); Calcium 8.4 mg/dL (8.6-10.8); Carbon Dioxide 24 mEq/L (19-29); Chloride 108 mEq/L (98-109); Glucose 94 mg/dL (70-99); Osmolality,Calculated 287 (280-300); Potassium 3.6 mEq/L (3.5-4.5); Sodium 140 mEq/L (136-145); eGFR For African Americans > 60 (> 60); eGFR For Non-African Americans > 60 (> 60)
[2016-11-15] MEDS: MetroNIDAZOLE 500 MG/100 ML 500 MG/100 ML BAG IVPB SCH (07:53)
[2016-11-15] MEDS: amLODIPine 5 MG TABLET PO SCH (07:53)
[2016-11-15] MEDS: 0.9 % Sodium Chloride 1,000 ML IVC SCH ×2 (07:54)
[2016-11-15] MEDS ORDERED: Ondansetron 4 MG/2 ML VIAL IVP PRN (11:45)
[2016-11-15] MEDS ORDERED: *HR* LORazepam 2 MG/ML VIAL IVP PRN (11:46)
[2016-11-15] MEDS ORDERED: *HR* HYDROmorphone (PF) 1 MG/ML SYRINGE IVP PRN ×2 (11:46→11:50)
[2016-11-15] MEDS ORDERED: 0.9 % Sodium Chloride 1,000 ML IVC SCH (11:46)
[2016-11-15] MEDS ORDERED: *HR* HYDROcodone/Acet 5/325 mg TABLET PO PRN ×2 (11:49→13:58)
--- NOTE | 2016-11-15 12:46 | Internal Med Progress Note ---
Date of Encounter: 11/15/16 Time of Encounter: 12:15 - Subjective Interval history: patient is drinking clear liquids well. mild abdominal pain. - Constitutional Vitals: Temp Pulse Resp BP Pulse Ox 97.5 F L 80 14 116/80 96 11/15/16 11:16 11/15/16 11:16 11/15/16 11:16 11/15/16 11:16 11/15/16 11:16 General appearance: Present: cooperative, A&O X 3, pleasant, no acute distress, answers questions appropriately - Eye Eye exam: Present: PERRL, sclera anicteric - Neck Neck exam general surgery: Present: supple, trachea midline. Absent: lymphadenopathy - Respiratory Respiratory exam: Present: CTAB - Cardiovascular Cardiovascular exam: Present: RRR - GI/Abdominal GI/Abdominal exam: Present: normal bowel sounds, soft. Absent: distended, tenderness - Back Exam Back exam: Absent: CVA tenderness (L), CVA tenderness (R) - Neurological Exam Neurological exam: Present: alert, oriented X3, no focal deficits, strengths equal and symetr throughout. Absent: facial droop, speech deficit - Skin Skin exam: Absent: rash Internal Medicine: Result - Labs CBC & Chem 7: 11/15/16 05:14 11/15/16 05:14 Labs: Short CBC 11/15/16 Range/Units 05:14 WBC 4.4 (4.3-11.1) K/mcL Hgb 10.4 L (11.5-15.4) g/dL Hct 32.7 L (35.3-44.9) % Plt Count 227 (140-400) K/mcL [facility] 11/15/16 05:14 Sodium 140 Potassium 3.6 Chloride 108 Carbon Dioxide 24 BUN 6 L Creatinine 0.71 Glucose 94 Calcium 8.4 L - ABG Interpretation ABG results: PT/INR, D-dimer PT 11.5 Seconds (9.4-12.1) 11/13/16 09:44 - Impressions Impressions KUB X-Ray 11/14/16 00:00 IMPRESSION: Contrast within the colon. D/ / Estefany Soria MD / Estefany Soria MD Interpreting Provider: Estefany Soria MD Abdomen/Pelvis CT 11/14/16 19:30 IMPRESSION: 1. Diverticulosis of the sigmoid colon with no evidence of acute diverticulitis. 2. No other significant findings in the abdomen or pelvis. D/ / Silvestre Navarro MD / Silvestre Navarro MD Interpreting Provider: Silvestre Navarro MD Consult Discharge Plan - Plan Referrals: Carlos Malagon, PAC [Primary Care Provider] -
--- NOTE | 2016-11-15 14:24 | General Surgery Progress Note ---
Date of Encounter: 11/15/16 Time of Encounter: 14:22 - Assessment and Plan (1) Abdominal pain, left lower quadrant Current Visit: Yes Status: Chronic CT reviewed and no evidence of acute inflammation Plan for outpatient follow-up with Dr. Aldana as previously scheduled (2) Diverticulosis Current Visit: Yes Status: Chronic Follow-up as outpatient with Dr. Aldana on 11/19/16 Qualifiers: Diverticulosis site: diverticulosis of large intestine Diverticulosis bleeding: diverticulosis without bleeding Qualified Code(s): K57.30 - Diverticulosis of large intestine without perforation or abscess without bleeding (3) Asthma Current Visit: No Status: Chronic Qualifiers: Asthma severity: mild intermittent Asthma complication type: uncomplicated Qualified Code(s): J45.20 - Mild intermittent asthma, uncomplicated (4) Morbid obesity with BMI of 40.0-44.9, adult Current Visit: No Status: Chronic (5) DVT prophylaxis Current Visit: No Status: Acute EPCDs to bilateral lower extremities for DVT prophylaxis Subjective Patient reports: no new complaints, still having pain, pain is less, tolerating liquids well, flatus, afebrile Objective Vital Signs - Last 8 Hours Temp Pulse Resp BP Pulse Ox 11/15/16 11:16 97.5 F L 80 14 116/80 96 11/15/16 07:02 97.5 F L 80 15 125/79 94 L Intake and Output 11/14/16 11/15/16 11/15/16 23:59 07:59 15:59 Intake Total 1660 / 1660 1350.5 / 1350.5 240 / 240 Output Total 1300 / 1300 1000 / 1000 600 / 600 Balance 360 / 360 350.5 / 350.5 -360 / -360 Intake: IV Fluids 1300 / 1300 1350.5 / 1350.5 0.9 % Sodium Chloride 1, 1000 / 1000 1000 / 1000 000 ML @ 125 mls/hr IVC . Q8H [facility] Rx#:[id number] Cipro 400 MG/200 ML 400 200 / 200 200 / 200 mg In 200 ml @ 200 mls/hr IVPB Q12HR [facility] Rx#: [id number] Flagyl 500 MG/100 ML 500 100 / 100 100 / 100 mg In 100 ml @ 100 mls/hr IVPB Q8HR [facility] Rx#: [id number] Phenergan 12.5 MG In 0.9 50.5 / 50.5 % Sodium Chloride 50 ML @ 204 mls/hr IVPB Q6HR PRN Rx#:[id number] Oral 360 / 360 240 / 240 Output: Urine 1100 / 1100 1000 / 1000 600 / 600 Stool 200 / 200 Other: Meal Breakfast Percent of Meal Consumed 0% Stool Size Small Stool Consistency liquid Stool Color Pale - General physical appearance well developed, well nourished, no distress - Eyes normal ocular movement - ENT normal mucosa, atraumatic, normocephalic - Neck Neck exam: trachea midline - Respiratory normal respiratory effort - Abdomen Abdomen: Present: soft, tender Abdominal Tenderness: LLQ - Integumentary no rash, no growths, no abnormal pigmentation - Neurologic CN 2-12 grossly intact - Musculoskeletal normal gait, normal posture - Psychiatric oriented to time, oriented to person, oriented to place, speech is normal, memory intact - Labs 11/15/16 05:14 11/15/16 05:14 Diabetes panel 11/15/16 Range/Units 05:14 Sodium 140 (136-145) mEq/L Potassium 3.6 (3.5-4.5) mEq/L Chloride 108 (98-109) mEq/L Carbon Dioxide 24 (19-29) mEq/L BUN 6 L (7-20) mg/dL Creatinine 0.71 (0.57-1.11) mg/dL Glucose 94 (70-99) mg/dL Calcium 8.4 L (8.6-10.8) mg/dL Calcium panel 11/15/16 Range/Units 05:14 Calcium 8.4 L (8.6-10.8) mg/dL Pituitary panel 11/15/16 Range/Units 05:14 Sodium 140 (136-145) mEq/L Potassium 3.6 (3.5-4.5) mEq/L Chloride 108 (98-109) mEq/L Carbon Dioxide 24 (19-29) mEq/L BUN 6 L (7-20) mg/dL Creatinine 0.71 (0.57-1.11) mg/dL Glucose 94 (70-99) mg/dL Calcium 8.4 L (8.6-10.8) mg/dL Adrenal panel 11/15/16 Range/Units 05:14 Sodium 140 (136-145) mEq/L Potassium 3.6 (3.5-4.5) mEq/L Chloride 108 (98-109) mEq/L Carbon Dioxide 24 (19-29) mEq/L BUN 6 L (7-20) mg/dL Creatinine 0.71 (0.57-1.11) mg/dL Glucose 94 (70-99) mg/dL Calcium 8.4 L (8.6-10.8) mg/dL Consult Discharge Plan - Plan Additional Instructions: Low fiber diet Referrals: Carlos Malagon, PAC [Primary Care Provider] - Brock Aldana DO [Partnered Physician] - 11/19/16 4:30 pm
[2016-11-15 16:15] VITALS: BP 149/102
--- NOTE | 2016-11-15 16:16 | Discharge Summary ---
Date of Encounter: 11/15/16 Time of Encounter: 15:00 - Discharge Diagnosis (1) Abdominal pain Priority: Primary Status: Chronic Qualifiers: Abdominal location: generalized Qualified Code(s): R10.84 - Generalized abdominal pain (2) Diverticulosis Priority: Secondary Status: Chronic Qualifiers: Diverticulosis site: diverticulosis of large intestine Diverticulosis bleeding: diverticulosis without bleeding Qualified Code(s): K57.30 - Diverticulosis of large intestine without perforation or abscess without bleeding (3) Anxiety about health Priority: Secondary Status: Chronic (4) HTN (hypertension) Priority: Secondary Status: Chronic Qualifiers: Hypertension type: essential hypertension Qualified Code(s): I10 - Essential (primary) hypertension (5) Morbid obesity with BMI of 40.0-44.9, adult Priority: Secondary Status: Chronic - Discharge Medications Home Medications: Amlodipine [Norvasc] 5 mg PO DAILY 07/23/16 [History] Meloxicam [Mobic] 15 mg PO DAILY #7 tab 11/08/16 [Rx] Ondansetron ODT [Zofran ODT] 4 mg SL Q6HR #10 tab.rapdis 11/08/16 [Rx] Lactobacillus [Culturelle] 1 cap PO BID 11/13/16 [History] Psyllium Husk [Fiber] 0.52 gm PO DAILY 11/13/16 [History] Allergies/Adverse Reactions: Allergies azithromycin [From Zithromax] Allergy (Verified 11/13/16 09:06) Abdominal Pain levofloxacin [From Levaquin] Allergy (Verified 11/13/16 09:06) Hives prochlorperazine [From Compazine] Allergy (Verified 11/13/16 09:06) Rash Sulfa (Sulfonamide Antibiotics) Allergy (Verified 11/13/16 09:06) Anaphylaxis Procedures/tests Complete & Pending: Procedures Performed prior 72 hours Category Date Time Status CT abd pelvis w iv and oral [CT] Stat Cat Scan 11/14/16 19:30 Completed Date of admission: 11/13/16 14:12 Primary care physician: Carlos Malagon - Patient Status Disposition: Home, Self-Care Condition: Good Functional capacity at discharge: independent ambulation Overall status at discharge: patient is progressing back to baseline - Discharge Instructions Follow Up With: Brock Aldana DO [Partnered Physician] - 11/19/16 4:30 pm Carlos Malagon, PAC [Primary Care Provider] - Additional Instructions: Low fiber diet, low fat diet. follow up with primary care doctor to start a weight loss program. follow up with dr aldana as schedule - Diet and Activity Activity: resume usual activities as tolerated Diet: low fat, low cholesterol (low fiber diet) Interval History: patient is drinking clear liquids well. mild abdominal pain. Hospital course: Ms. Fernando is a 36 year old female with pmh of recurrent diverticulitis, hypertension and anxiety who presented with abdominal pain. She was admitted for suspected recurrent diverticulitis and was started on Cipro and flagyl. CT abd/pelvis showed only diverticulosis. She was tolerating diet and ambulating well at discharge. PLAN: f/u with dr aldana for recurrent diverticulitis. - Time Spent with Patient Total time spent providing and/or coordinating discharge services: - Constitutional Vitals: Temp Pulse Resp BP Pulse Ox 97.5 F L 80 14 116/80 96 11/15/16 11:16 11/15/16 11:16 11/15/16 11:16 11/15/16 11:16 11/15/16 11:16 General appearance: Present: cooperative, A&O X 3, pleasant, no acute distress, answers questions appropriately - Eye Eye exam: Present: PERRL, sclera anicteric - ENT ENT exam: Present: mucous membranes moist - Neck Neck exam general surgery: Present: supple, trachea midline. Absent: lymphadenopathy - Respiratory Respiratory exam: Present: CTAB - Cardiovascular Cardiovascular exam: Present: RRR - GI/Abdominal GI/Abdominal exam: Present: normal bowel sounds, soft. Absent: distended, tenderness - Extremities Exam Extremities exam: Absent: pedal edema - Back Exam Back exam: Absent: CVA tenderness (L), CVA tenderness (R) - Neurological Exam Neurological exam: Present: alert, oriented X3, no focal deficits, strengths equal and symetr throughout. Absent: facial droop, speech deficit - Skin Skin exam: Absent: rash
== END 2016-11-15 16:20 | disposition home or self-care (01) ==
LOC: EMEROO 08:56 → 3ANU 08:56 → SUATTDRO 14:12 → 3ANU 14:48
PROVIDERS: ADMIT Internal Medicine; ATTEND Internal Medicine

== ENCOUNTER 2017-02-27 10:59 | Inpatient (IN) ==
--- NOTE | 2017-02-27 11:08 | Emergency Department Note ---
Disposition Clinical Impression: Hypokalemia, Open abdominal wall wound, Recent major surgery, History of colon resection, Obesity, Uncontrolled hypertension, Vomiting, Abdominal pain, Urinary tract infection, Post-operative complication, Elevated C-reactive protein (CRP), Abdominal wall cellulitis Disposition: Admitted As Inpatient Referrals: Carlos Malagon PAC [Primary Care Provider] - Forms: Work/School Release, ED Satisfaction Letter General Adult HPI - General Chief complaint: ED Abdominal Pain Stated complaint: Abd Pain Time Seen by Provider: 02/27/17 11:04 - History of Present Illness HPI Narrative: 36-year-old female reports emergency department complaining of lower abdominal pain. She describes having surgery at [facility] for recurrent diverticulitis, she tells me that she had "2-1/2 feet of her colon taken out". This was in December. The patient describes a secondary infection in the abdominal wall which has been managed with packing. She states she attended the wound center yesterday and they were concerned about drainage and/or the depth of her wound and felt that a wound VAC would be inappropriate. There was concern for the depth of the wound. The patient describes purulent drainage. There is no history of fever or diarrhea. She has had some nonbloody emesis. She is not anticoagulated. There is no history of flank or back pain. The patient states she has a UTI and is currently taking Macrobid. There is no history of chest pain shortness breath leg swelling or pain. No headache. The patient's blood pressure has been elevated, she reports she is been vomiting and unable take her blood pressure medication. There is no history of convulsion or confusion fever or rash. No trouble moving the arms or legs independently no unilateral arm or leg weakness or numbness. There is no history of currently. No history of vaginal discharge or bleeding. - Related Data Home Medications Medication Instructions Recorded Confirmed amLODIPine [Norvasc] 5 mg PO DAILY 07/23/16 02/06/17 Lactobacillus [Culturelle] 1 cap PO BID 11/13/16 02/06/17 Psyllium Husk [Fiber] 0.52 gm PO DAILY 11/13/16 02/06/17 Cephalexin [Keflex] 250 mg PO QID 02/06/17 02/06/17 Ciprofloxacin HCl [Cipro] 500 mg PO QID 02/06/17 02/06/17 Promethazine [Phenergan] 25 mg PO Q6HR 02/06/17 02/06/17 metroNIDAZOLE [Flagyl] 500 mg PO BID 02/06/17 02/06/17 Previous Rx's Medication Instructions Recorded Ondansetron ODT [Zofran ODT] 4 mg SL Q6HR PRN #30 tab.rapdis 02/03/17 Nitrofurantoin (BID) [Macrobid] 100 mg PO BID #20 capsule 02/19/17 Allergies Allergy/AdvReac Type Severity Reaction Status Date / Time azithromycin [From Zithromax] Allergy Abdominal Verified 02/10/17 17:23 Pain levofloxacin [From Levaquin] Allergy Hives Verified 02/10/17 17:23 prochlorperazine Allergy Rash Verified 02/10/17 17:23 [From Compazine] Sulfa (Sulfonamide Allergy Anaphylaxis Verified 02/10/17 17:23 Antibiotics) All systems ED: reviewed and negative except as stated. Past Medical History - Past Medical History Medical history: Reports: hypertension, other Surgical history: Reports: non-contributory, appendectomy, , cholecystectomy, hysterectomy, other Psychiatric history: Reports: anxiety [employer] history: Reports: endometriosis, polycystic ovary syndrome - Social History Smoking Status: Never smoker Smokeless Tobacco Status: No Alcohol use: Reports: none Drug use: Reports: none Physical Exam - General Limitations: no limitations General appearance: alert, in no apparent distress - Head Head exam: atraumatic, normocephalic, normal inspection - Eye Eye exam: Present: normal appearance, PERRL, EOMI - ENT ENT exam: normal exam, normal oropharynx, mucous membranes moist, TM's normal bilaterally, normal external ear exam - Neck Neck exam: Present: normal inspection, full ROM, trachea midline. Absent: tenderness - Chest Chest inspection: Present: symmetric chest wall rise. Absent: tenderness - Respiratory Respiratory exam: Present: normal lung sounds bilaterally. Absent: respiratory distress, wheezes, stridor, accessory muscle use, prolonged expiratory phase - Cardiovascular Cardiovascular exam: Present: regular rate, normal rhythm, normal heart sounds - Abdominal Exam Abdominal exam: Present: soft, tenderness, normal bowel sounds, other (Open lesion lower mid abdomen. Purulent drainage no surrounding cellulitis crepitance or blackening of the skin no streaking angitis.). Absent: distention , guarding, rebound, rigidity Abdominal tenderness: Present: RLQ, LLQ, moderate - Extremities Exam Extremities exam: Present: normal inspection, full ROM, normal capillary refill. Absent: tenderness, pedal edema, joint swelling, calf tenderness - Expanded Lower Extremity Exam Lower leg exam: Absent: Homans' sign Neurovascular/Tendon exam: Present: normal capillary refill. Absent: motor deficit, sensory deficit, tendon deficit, extremity cold to touch, pallor - Back Exam Back exam: Present: normal inspection, full ROM. Absent: tenderness, CVA tenderness (R), CVA tenderness (L), vertebral tenderness - Neurological Exam Neurological exam: Present: alert, oriented X3, CN II-XII intact. Absent: motor sensory deficit - Psychiatric Psychiatric exam: Present: normal affect, normal mood - Skin Skin exam: Present: warm, dry, intact, normal color. Absent: rash, cyanosis, diaphoresis, erythema, pallor, mottled Course - Reevaluation(s) Reevaluation #1: The patient's diastolic was 108 on arrival then annalisa of to the 130s to 150's. Pain medications were ordered. Labetalol ordered. Testing ordered. Patient denies any headache or neurologic symptoms. She states she has been vomiting and been unable to take her antihypertensive medication. Reevaluation #2: It is noted the patient has had several recent CAT scans. The patient tells me the wound care center personnel are highly concerned about her wound being abnormal and recommended she come in for evaluation. She describes having had recent colon resection surgery with a postoperative infectious complication. She describes severe abdominal pain with purulent wound discharge. The patient' s diastolic blood pressure has been as high as 150 in the ED. She has had recurrent vomiting and describes a UTI as well. Based on her presentation, regarding severe abdominal pain, a recent diagnosis of UTI, recent surgery with postoperative infectious complications, a very high diastolic blood pressure indicating a significant level of pain, a notable abdominal wall defect which is draining purulent material, and wound care personal staff displaying high levels of concern regarding the patient's wound recommended she come to the ED, I thought the benefits of a single CAT scan here in the emergency department to rule out acute emergent abdominal pathology outweighed the risks of this isolated study. Considerations would be abdominal wall abscess or deep space infection, acute colonic disease or perforation, communicating fistula with the abdominal wall from the peritoneal cavity, bleeding, pyelonephritis, renal abscess, kidney stone, intra-abdominal bleeding, and a host of other potential emergent pathologies. The patient is agreeable. Vital Signs Temperature 98.5 F 02/27/17 11:00 Pulse Rate 95 02/27/17 11:00 Respiratory Rate 16 02/27/17 11:00 Blood Pressure 182/109 02/27/17 11:00 O2 Sat by Pulse Oximetry 99 02/27/17 11:00 Temperature 98.5 F 02/27/17 11:00 Pulse Rate 89 02/27/17 16:07 Respiratory Rate 16 02/27/17 16:07 Blood Pressure 124/81 02/27/17 16:07 O2 Sat by Pulse Oximetry 99 02/27/17 16:07 Oxygen Delivery Oxygen Delivery Room Air Medical Decision Making - MDM Narrative Medical decision making narrative: The patient has foul-smelling drainage from her abdominal wall wound, there is some fluid in the wound area with some stranding per CT scan report appears to be worsened compared to previous, no drainable abscess noted. The patient has changes suggestive of UTI. She states she has been on Macrobid for a week indicating failed outpatient therapy for UTI. The patient describes vomiting. Persistent abdominal pain. She was given several doses of tylotic and Zofran and Ativan in the ED but still had persistent pain. Notably her diastolic blood pressure was as high as 150 in the ER. She does not feel comfortable going home. Her CRP is elevated. Vancomycin and Zosyn were ordered. Blood cultures ordered. Wound cultures ordered. Based on the patient's persistent abdominal pain status post multiple medications in the ED, CT scan indicating stranding of the soft tissue in the abdominal wall with what appears to be worsening fluid , elevated inflammatory markers, uncontrolled blood pressure, what appears to be failed outpatient treatment for UTI, recent major surgery with complications involving an abscess in the abdominal wall per patient history, and vomiting with associated hypokalemia, I thought it would be appropriate to admit the patient to the hospital for pain control, fluid and electrolyte management, and IV antibiotics. The patient is currently stable. I reviewed the case with the hospitalist on-call who has accepted the patient to their care. - Lab Data Lab results reviewed: Yes I reviewed the patient's lab results. Result diagrams: 02/27/17 11:53 02/27/17 11:53 Lab Results 02/27/17 02/27/17 02/27/17 Range/Units 11:53 11:53 11:53 WBC 5.6 (4.3-11.1) K/mcL RBC 4.46 (3.82-4.97) M/mcL Hgb 12.1 (11.5-15.4) g/dL Hct 38.1 (35.3-44.9) % MCV 85.4 (83.0-100.0) fL MCH 27.1 L (28.0-33.3) pg MCHC 31.8 (31.6-35.5) g/dL RDW 15.7 H (11.5-14.5) % Plt Count 306 (140-400) K/mcL MPV 9.2 L (9.4-12.4) fL Immature Gran % 0.4 (0-4) % Seg Neutrophils % 67.2 % Lymphocytes % 22.8 % Monocytes % 7.4 % Eosinophils % 1.8 % Basophils % 0.4 % Neutrophils # 3.8 (1.6-8.9) K/mcL Lymphocytes # 1.3 (0.6-4.6) K/mcL Monocytes # 0.4 (0.0-1.3) K/mcL Eosinophils # 0.1 (0.0-0.6) K/mcL Basophils # 0.0 (0.0-0.2) K/mcL PT 11.8 (9.4-12.1) Seconds INR 1.1 APTT 31.2 (26.0-36.0) Seconds Sodium 141 (136-145) mEq/L Potassium 3.3 L (3.5-4.5) mEq/L Chloride 104 (98-109) mEq/L Carbon Dioxide 28 (19-29) mEq/L BUN 11 (7-20) mg/dL Creatinine 0.83 (0.57-1.11) mg/dL Est GFR ( Amer) > 60 (> 60) Est GFR (Non-Af Amer) > 60 (> 60) BUN/Creatinine Ratio 13 (6-26) Glucose 97 (70-99) mg/dL Calculated Osmolality 291 (280-300) Lactic Acid (0.5-2.2) mmol/L Calcium 10.3 (8.6-10.8) mg/dL Total Bilirubin 1.0 (0.2-1.2) mg/dL Direct Bilirubin 0.3 (0.0-0.5) mg/dL Indirect Bilirubin 0.7 (0.0-1.2) mg/dL AST 27 (5-34) Units/L ALT 28 (0-55) Units/L Alkaline Phosphatase 99 (38-126) Units/L C-Reactive Protein 31 H (Less than 5) mg/L Serum Total Protein 8.1 (6.0-8.3) g/dL Albumin 3.9 (3.5-5.0) g/dL Globulin 4.2 H (2.4-3.5) g/dL Albumin/Globulin Ratio 0.9 L (1.1-2.2) Lipase 21 (8-78) Units/L Serum , Qual (Negative) Urine Color (Yellow) Urine Clarity (Clear) Urine pH (5.0-8.0) pH Units Ur Specific Riva (1.010-1.025) Urine Protein (Neg-Trace) mg/dL Urine Glucose (UA) (Normal) mg/dL Urine Ketones (Negative) mg/dL Urine Blood (Negative) Urine Nitrite (Negative) Urine Bilirubin (Negative) Urine Urobilinogen (Normal) mg/dL Ur Leukocyte Esterase (Negative) Urine Microscopic RBC (0-3) per hpf Urine Microscopic WBC (0-3) per hpf Ur Squamous Epith Cells (None-Few) per lpf Urine Bacteria (None-Few) per hpf Hyaline Casts (None-Few) per lpf Ur Culture Indicated? (NO) Urine Opiates Screen (Vzyiib=632) ng/mL Ur Barbiturates Screen (Axhxnx=196) ng/mL Ur Phencyclidine Scrn (Cutoff=25) ng/mL Ur Amphetamines Screen (Stgmjg=6636) ng/mL U Benzodiazepines Scrn (Awaefw=233) ng/mL Urine Cocaine Screen (Cutoff= 300) ng/mL U Marijuana (THC) Screen (Cutoff = 50) ng/mL 02/27/17 02/27/17 02/27/17 Range/Units 11:53 11:53 13:32 WBC (4.3-11.1) K/mcL RBC (3.82-4.97) M/mcL Hgb (11.5-15.4) g/dL Hct (35.3-44.9) % MCV (83.0-100.0) fL MCH (28.0-33.3) pg MCHC (31.6-35.5) g/dL RDW (11.5-14.5) % Plt Count (140-400) K/mcL MPV (9.4-12.4) fL Immature Gran % (0-4) % Seg Neutrophils % % Lymphocytes % % Monocytes % % Eosinophils % % Basophils % % Neutrophils # (1.6-8.9) K/mcL Lymphocytes # (0.6-4.6) K/mcL Monocytes # (0.0-1.3) K/mcL Eosinophils # (0.0-0.6) K/mcL Basophils # (0.0-0.2) K/mcL PT (9.4-12.1) Seconds INR APTT (26.0-36.0) Seconds Sodium (136-145) mEq/L Potassium (3.5-4.5) mEq/L Chloride (98-109) mEq/L Carbon Dioxide (19-29) mEq/L BUN (7-20) mg/dL Creatinine (0.57-1.11) mg/dL Est GFR ( Amer) (> 60) Est GFR (Non-Af Amer) (> 60) BUN/Creatinine Ratio (6-26) Glucose (70-99) mg/dL Calculated Osmolality (280-300) Lactic Acid 0.9 (0.5-2.2) mmol/L Calcium (8.6-10.8) mg/dL Total Bilirubin (0.2-1.2) mg/dL Direct Bilirubin (0.0-0.5) mg/dL Indirect Bilirubin (0.0-1.2) mg/dL AST (5-34) Units/L ALT (0-55) Units/L Alkaline Phosphatase (38-126) Units/L C-Reactive Protein (Less than 5) mg/L Serum Total Protein (6.0-8.3) g/dL Albumin (3.5-5.0) g/dL Globulin (2.4-3.5) g/dL Albumin/Globulin Ratio (1.1-2.2) Lipase (8-78) Units/L Serum , Qual Negative (Negative) Urine Color (Yellow) Urine Clarity (Clear) Urine pH (5.0-8.0) pH Units Ur Specific Riva (1.010-1.025) Urine Protein (Neg-Trace) mg/dL Urine Glucose (UA) (Normal) mg/dL Urine Ketones (Negative) mg/dL Urine Blood (Negative) Urine Nitrite (Negative) Urine Bilirubin (Negative) Urine Urobilinogen (Normal) mg/dL Ur Leukocyte Esterase (Negative) Urine Microscopic RBC (0-3) per hpf Urine Microscopic WBC (0-3) per hpf Ur Squamous Epith Cells (None-Few) per lpf Urine Bacteria (None-Few) per hpf Hyaline Casts (None-Few) per lpf Ur Culture Indicated? (NO) Urine Opiates Screen Positive H (Xixwbv=502) ng/mL Ur Barbiturates Screen Negative (Loyzai=593) ng/mL Ur Phencyclidine Scrn Negative (Cutoff=25) ng/mL Ur Amphetamines Screen Negative (Ohbjbl=1339) ng/mL U Benzodiazepines Scrn Negative (Qjnffk=997) ng/mL Urine Cocaine Screen Negative (Cutoff= 300) ng/mL U Marijuana (THC) Screen Negative (Cutoff = 50) ng/mL 02/27/17 Range/Units 13:34 WBC (4.3-11.1) K/mcL RBC (3.82-4.97) M/mcL Hgb (11.5-15.4) g/dL Hct (35.3-44.9) % MCV (83.0-100.0) fL MCH (28.0-33.3) pg MCHC (31.6-35.5) g/dL RDW (11.5-14.5) % Plt Count (140-400) K/mcL MPV (9.4-12.4) fL Immature Gran % (0-4) % Seg Neutrophils % % Lymphocytes % % Monocytes % % Eosinophils % % Basophils % % Neutrophils # (1.6-8.9) K/mcL Lymphocytes # (0.6-4.6) K/mcL Monocytes # (0.0-1.3) K/mcL Eosinophils # (0.0-0.6) K/mcL Basophils # (0.0-0.2) K/mcL PT (9.4-12.1) Seconds INR APTT (26.0-36.0) Seconds Sodium (136-145) mEq/L Potassium (3.5-4.5) mEq/L Chloride (98-109) mEq/L Carbon Dioxide (19-29) mEq/L BUN (7-20) mg/dL Creatinine (0.57-1.11) mg/dL Est GFR ( Amer) (> 60) Est GFR (Non-Af Amer) (> 60) BUN/Creatinine Ratio (6-26) Glucose (70-99) mg/dL Calculated Osmolality (280-300) Lactic Acid (0.5-2.2) mmol/L Calcium (8.6-10.8) mg/dL Total Bilirubin (0.2-1.2) mg/dL Direct Bilirubin (0.0-0.5) mg/dL Indirect Bilirubin (0.0-1.2) mg/dL AST (5-34) Units/L ALT (0-55) Units/L Alkaline Phosphatase (38-126) Units/L C-Reactive Protein (Less than 5) mg/L Serum Total Protein (6.0-8.3) g/dL Albumin (3.5-5.0) g/dL Globulin (2.4-3.5) g/dL Albumin/Globulin Ratio (1.1-2.2) Lipase (8-78) Units/L Serum , Qual (Negative) Urine Color Dark Yellow (Yellow) Urine Clarity Cloudy A (Clear) Urine pH 6.5 (5.0-8.0) pH Units Ur Specific Riva 1.028 H (1.010-1.025) Urine Protein 30 H (Neg-Trace) mg/dL Urine Glucose (UA) Normal (Normal) mg/dL Urine Ketones Negative (Negative) mg/dL Urine Blood Large H (Negative) Urine Nitrite Negative (Negative) Urine Bilirubin Negative (Negative) Urine Urobilinogen Normal (Normal) mg/dL Ur Leukocyte Esterase Small H (Negative) Urine Microscopic RBC 15-30 H (0-3) per hpf Urine Microscopic WBC 5-15 H (0-3) per hpf Ur Squamous Epith Cells Many H (None-Few) per lpf Urine Bacteria Many H (None-Few) per hpf Hyaline Casts Few (None-Few) per lpf Ur Culture Indicated? YES A (NO) Urine Opiates Screen (Fdhecw=309) ng/mL Ur Barbiturates Screen (Kbohkt=511) ng/mL Ur Phencyclidine Scrn (Cutoff=25) ng/mL Ur Amphetamines Screen (Uryfjv=7310) ng/mL U Benzodiazepines Scrn (Hsrwht=231) ng/mL Urine Cocaine Screen (Cutoff= 300) ng/mL U Marijuana (THC) Screen (Cutoff = 50) ng/mL - Radiology Data Radiology results reviewed: Yes I reviewed the patient's radiology results.
[2017-02-27 12:01] LABS: Basophils % 0.4 %; Eosinophils # 0.1 K/mcL (0.0-0.6); Eosinophils % 1.8 %; Hematocrit 38.1 % (35.3-44.9); Hemoglobin 12.1 g/dL (11.5-15.4); Immature Granulocytes % 0.4 % (0-4); Lymphocytes # 1.3 K/mcL (0.6-4.6); Lymphocytes % 22.8 %; Mean Corpuscular HGB Conc 31.8 g/dL (31.6-35.5); Mean Corpuscular Hemoglobin 27.1 pg (28.0-33.3); Mean Corpuscular Volume 85.4 fL (83.0-100.0); Mean Platelet Volume 9.2 fL (9.4-12.4); Monocytes # 0.4 K/mcL (0.0-1.3); Monocytes % 7.4 %; Neutrophils # 3.8 K/mcL (1.6-8.9); Platelet Count 306 K/mcL (140-400); Red Blood Count 4.46 M/mcL (3.82-4.97); Red Cell Distribution Width 15.7 % (11.5-14.5); Segmented Neutrophils % 67.2 %
[2017-02-27] MEDS ORDERED: Ondansetron 4 MG/2 ML VIAL IVP ONE ×2 (12:03→12:50)
[2017-02-27] MEDS ORDERED: *HR* HYDROmorphone (PF) 1 MG/ML SYRINGE IVP ONE ×3 (12:03→16:44)
[2017-02-27 12:11] LABS: INR 1.1; Prothrombin Time 11.8 Seconds (9.4-12.1)
[2017-02-27] MEDS ORDERED: *HR* Labetalol 20 MG/4 ML SYRINGE IVP ONE (12:12)
[2017-02-27 12:13] LABS: Activated Partial Thrombo Time 31.2 Seconds (26.0-36.0)
[2017-02-27 12:15] LABS: Alanine Aminotransferase 28 Units/L (0-55); Albumin 3.9 g/dL (3.5-5.0); Albumin/Globulin Ratio 0.9 (1.1-2.2); Alkaline Phosphatase 99 Units/L (38-126); Aspartate Amino Transferase 27 Units/L (5-34); BUN/Creatinine Ratio 13 (6-26); Bilirubin,Direct 0.3 mg/dL (0.0-0.5); Bilirubin,Indirect 0.7 mg/dL (0.0-1.2); Blood Urea Nitrogen 11 mg/dL (7-20); Calcium 10.3 mg/dL (8.6-10.8); Carbon Dioxide 28 mEq/L (19-29); Chloride 104 mEq/L (98-109); Globulin 4.2 g/dL (2.4-3.5); Glucose 97 mg/dL (70-99); Lipase 21 Units/L (8-78); Osmolality,Calculated 291 (280-300); Potassium 3.3 mEq/L (3.5-4.5); Sodium 141 mEq/L (136-145); Total Protein 8.1 g/dL (6.0-8.3); eGFR For African Americans > 60 (> 60); eGFR For Non-African Americans > 60 (> 60)
[2017-02-27 12:43] LABS: C-Reactive Protein 31 mg/L (Less than 5)
[2017-02-27 13:44] LABS: Bilirubin,Urine Negative (Negative); Blood,Urine Large (Negative); Clarity,Urine Cloudy (Clear); Color,Urine Dark Yellow (Yellow); Glucose,Urine (UA) Normal (Normal); Ketones,Urine Negative (Negative); Leukocyte Esterase,Urine Small (Negative); Nitrite,Urine Negative (Negative); PH,Urine 6.5 pH Units (5.0-8.0); Protein,Urine 30 mg/dL (Neg-Trace); Specific Gravity,Urine 1.028 (1.010-1.025); Urobilinogen,Urine Normal (Normal)
[2017-02-27 13:46] LABS: Bacteria,Urine Many per hpf (None-Few); Hyaline Casts,Urine Few per lpf (None-Few); RBC,Urine 15-30 per hpf (0-3); Squamous Epithelial Cell,Urine Many per lpf (None-Few)
[2017-02-27 13:49] LABS: Amphetamine Screen,Urine Negative ng/mL (Cutoff=1000); Barbiturate Screen,Urine Negative ng/mL (Cutoff=200); Benzodiazepines Screen,Urine Negative ng/mL (Cutoff=200); Cannabinoid Screen,Urine Negative ng/mL (Cutoff = 50); Cocaine Screen,Urine Negative ng/mL (Cutoff= 300); Opiate Screen,Urine Positive ng/mL (Cutoff=300); Phencyclidine Screen,Urine Negative ng/mL (Cutoff=25)
[2017-02-27] MEDS ORDERED: *HR* Promethazine 25 MG/ML VIAL IVP ONE (14:44)
[2017-02-27] MEDS ORDERED: *HR* LORazepam 2 MG/ML VIAL IVP ONE (15:59)
[2017-02-27] MEDS ORDERED: Vancomycin 1,000 MG in D5% in Water 250 ML IVPB ONE (16:41)
[2017-02-27] MEDS ORDERED: Piperacillin/Tazobactam 3.375 GM in D5% in Water (Mini-Bag+) 100 ML IVPB ONE (16:42)
--- NOTE | 2017-02-27 17:58 | Event Note ---
Date of Encounter: 02/27/17 Time of Encounter: 17:57 36 F with Chronic abdominal wound, HTN, Obesity, Chronic opiate dependence Seen and examined at bedside Presented for multiple complains including abdominal pain, nausea and vomiting and suspected infected wounds She denies fever or chills Physical exam is remarkable for a female adult in no form of distress, speaks full sentences, VSS. HEENT: Unremarkable, chest is CTAB, Abdomen with infraumbilical wound healed at both ends but with a punctum in the middle ( suprapubic region) wound dressing stained with serosanguinous fluid, abdomen is not tender, R Costophrenic angle tenderness is equivocal. No pedal edema Labs and Imaging reviewed: No leukocytosis, K of 3.3, UA with positive LE, WBC, RBC, Bacetria, Concentrated. Abd CT showed fat stranding and increased anterior abdominal fluid collection, no abscesses. A/P* UTI-Failed O-P therapy with nausea/vomiting, Suspected wound infection. Follow wound, blood and urine culture. agree with Jet and Sukhdev, de-escalate with cultures. Wound care consult for wound dressing, pain control, antiemetics , IVF hydration. Uncontrolled BP on presentation was possibly due to patient not being able to hold down her medications, resume home meds as tolerated. Rest of details as in [facility]IL[facility] hou's documentation.
[2017-02-27] MEDS ORDERED: Acetaminophen 325 MG TABLET PO PRN (18:19)
[2017-02-27] MEDS ORDERED: Naloxone 0.4 MG/ML INJ IVP PRN (18:19)
--- NOTE | 2017-02-27 18:38 | Internal Med History&Physical ---
Date of Encounter: 02/27/17 Time of Encounter: 18:28 Assessment and Plan (1) Wound infection Current visit: Yes Status: Acute Patient with 1/2cm opening with 7.5cm tunneling at inferior aspect of midline incision draining serosanguinous, and foul smelling drainage. Patient reporting abdominal pain, nausea and vomiting. CT Abd/pelivs showed stranding and small amount of fluid increased from prior study. Blood cultures and wound cultures sent. Vanc and Zosyn IVPB Consult to wound care team. (2) Nausea and vomiting Current visit: Yes Status: Acute Patient reporting poor appetite, nausea and vomiting. Zofran and phenergan PRN for nausea. IV fluids 0.9NS at 75mL/hr clear liquid diet, advance as tolerated. Qualifiers: Vomiting type: cyclical vomiting Vomiting Intractability: non-intractable Qualified Code(s): G43.A0 - Cyclical vomiting, not intractable (3) Hypokalemia Current visit: Yes Status: Acute potassium of 3.3. Patient given 40mEq of PO potassium. Recheck chemistry in the morning. (4) Open abdominal wall wound Current visit: Yes Status: Acute Patient with 1/2cm opening and 7.5cm tunneling open wound and inferior aspect of midline incision. Wound care consulted for management. Qualifiers: Encounter type: initial encounter Qualified Code(s): S31.109A - Unspecified open wound of abdominal wall, unspecified quadrant without penetration into peritoneal cavity, initial encounter (5) Urinary tract infection Current visit: Yes Status: Acute Patient has been taking macrobid as an outpatient for UTI. UA today also looks infected. Urine culture sent. Patient started on Vanc and zosyn for suspected wound infection which should cover UTI. Qualifiers: Urinary tract infection type: acute cystitis Hematuria presence: with hematuria Qualified Code(s): N30.01 - Acute cystitis with hematuria (6) DVT prophylaxis Current visit: Yes Status: Acute anti-embolic stockings Lovenox 40mg SQ daily Internal Medicine - H&P: HPI Chief complaint: abd pain, nausea, vomiting Admitted From: Emergency Dept Plans for Post Hospital Care: Home History of present illness: Ms. Fernando is a 36 year old female with hypertension and diverticulitis status post partial colon resection in December at [facility] presents to the emergency department today with complaints of abdominal pain, nausea and vomiting. Patient reports that she has had problems since her surgery and was in the hospital at [facility] after her surgery for 18 days due to an abscess and wound infection. She has had multiple UTIs since the surgery as well. She reports poor appetite nausea and vomiting and she reports she has lost 57 pounds in 41 days. She has had home health do dressing changes but reports she went to the wound care clinic yesterday for the first time and found that the wound was tunneling and deeper been the patient in the home health aide had realized and they had not been packing the wound sufficiently. She denies any lightheadedness, headaches, chest pain, palpitations shortness of breath. She reports occasional chills, normal bowel movements. Evaluation in the emergency department revealed mild hypokalemia with potassium of 3.3. Her CRP was elevated. CT of abdomen and pelvis showed postsurgical changes within the lower midline infraumbilical, wall with stranding and small amount of fluid which is increased from prior study, no drainable abscess. On exam, patient alert and oriented, in no acute distress. Heart has regular rate and rhythm, lungs are clear bilaterally to auscultation. Abdomen has midline incision with half centimeter opening at the distal aspect, I inserted a Q-tip and it tunneled down to 7/2 cm with serious, sanguinous, and foul-smelling drainage. Past Med Surg Social Fam HX - Past Medical History Medical history: hypertension, other Psychiatric history: anxiety - Past Surgical History Surgical History: non-contributory, appendectomy, , cholecystectomy, colectomy (partial colectomy), hysterectomy, other - Social History Smoking Status: Never smoker Smokeless Tobacco Status: No Alcohol use: none Drug use: none - Family History Mother Adopted: No Family Member Ethnicity: Non- Living Status: Still Living Hx Family Cardiac Disorders: No Hx Family Respiratory Disorders: No Hx Family Cancer: No Hx Family GI Disorders: No Hx Family Endocrine Disorder: No Hx Family Neuromuscular Disorders: No Hx Family Neurologic Disorders: No Hx Family HEENT Disorders: No Hx Family Autoimmune Disorders: No Father Family Member Ethnicity: Non- Living Status: Still Living Hx Family Cardiac Disorders: No Hx Family Respiratory Disorders: No Hx Family Cancer: No Hx Family GI Disorders: No Hx Family Endocrine Disorder: No Hx Family Neuromuscular Disorders: No Hx Family Neurologic Disorders: No Hx Family HEENT Disorders: No Hx Family Autoimmune Disorders: No Internal Medicine - H&P: Meds amLODIPine [Norvasc] 5 mg PO DAILY 07/23/16 [History] HYDROcodone/Acet 5/325 mg [[place] 5-325 mg] 1 tab PO Q6H PRN 02/27/17 [History] Nystatin POWDER [Nystop] 1 appl TP DAILY PRN 02/27/17 [History] Ondansetron HCl [Zofran] 4 mg PO Q4H PRN 02/27/17 [History] Promethazine [Phenergan] 25 mg PO Q6HR PRN 02/27/17 [History] Allergies azithromycin [From Zithromax] Allergy (Verified 02/10/17 17:23) Abdominal Pain levofloxacin [From Levaquin] Allergy (Verified 02/10/17 17:23) Hives prochlorperazine [From Compazine] Allergy (Verified 02/10/17 17:23) Rash Sulfa (Sulfonamide Antibiotics) Allergy (Verified 02/10/17 17:23) Anaphylaxis All Systems PM: A 10-system review of systems was performed and is negative for pertinent findings except as documented above in the HPI. - Constitutional Constitutional: chills, no fever(s), no night sweats - EENT Eyes: no change in vision, no discharge, no pain, no photophobia Ears: no ear discharge, no ear pain, no tinnitus Nose, mouth and throat: no dysphagia, no nasal discharge, no neck pain, no sore throat - Cardiovascular Cardiovascular ROS IM: no chest pain, no diaphoresis, no dyspnea, no lightheadedness, no palpitations, no syncope - Respiratory Respiratory: no cough, no dyspnea, no wheezing, no excessive phlegm production - Gastrointestinal Gastrointestinal: abdominal pain, nausea, vomiting, no diarrhea, no hematemesis , no hematochezia, no melena - Genitourinary Genitourinary: dysuria, no change in urinary stream, no flank pain, no hematuria - Musculoskeletal Musculoskeletal ROS IM: no numbness, no tingling - Integumentary Integumentary IM: no rash, no unusual bruising Additional comments: non-healing surgical wound. - Neurological Neurological ROS: no confusion, no convulsions, no focal weakness, no numbness, no tingling, no tremor(s) - Hematologic/Lymphatic Hematologic/Lymphatic: no easy bruising - Constitutional Vitals: Temp Pulse Resp BP Pulse Ox 98.5 F 91 16 103/83 95 02/27/17 11:00 02/27/17 16:46 02/27/17 17:40 02/27/17 17:40 02/27/17 16:46 General appearance: Present: A&O X 3, morbidly obese, pleasant, no acute distress - Head Head exam: Present: atraumatic, normocephalic - Eye Eye exam: Present: PERRL, conjuntiva pink, sclera anicteric Pupils: Present: PERRL - Neck Neck exam general surgery: Present: supple, trachea midline. Absent: lymphadenopathy - Respiratory Respiratory exam: Present: CTAB. Absent: accessory muscle use, rales, rhonchi, wheezes - Cardiovascular Cardiovascular exam: Present: RRR, +S1, +S2. Absent: diastolic murmur, gallop, rubs, systolic murmur - GI/Abdominal GI/Abdominal exam: Present: normal bowel sounds, soft, tenderness, no peritoneal signs. Absent: distended - Extremities Exam Extremities exam: Present: warm, radial pulses palpable and symetrical. Absent : calf tenderness, cyanotic, pedal edema - Incison Incision: Present: draining, serosanguinous, open Comments: 1.2 cm opening at inferior aspect of midline incision draining foul-smelling serosanguinous drainage. Q-tip inserted to 7.5cm - tunneling. - Neurological Exam Neurological exam: Present: CN II-XII intact, oriented X3, no focal deficits. Absent: facial droop, speech deficit - Skin Skin exam: Present: dry, intact Internal Med - H&P Results - Labs CBC & Chem 7: 02/27/17 11:53 02/27/17 11:53 Labs: All Lab Results (24 Hours) 02/27/17 02/27/17 02/27/17 Range/Units 11:53 11:53 11:53 WBC 5.6 (4.3-11.1) K/mcL RBC 4.46 (3.82-4.97) M/mcL Hgb 12.1 (11.5-15.4) g/dL Hct 38.1 (35.3-44.9) % MCV 85.4 (83.0-100.0) fL MCH 27.1 L (28.0-33.3) pg MCHC 31.8 (31.6-35.5) g/dL RDW 15.7 H (11.5-14.5) % Plt Count 306 (140-400) K/mcL MPV 9.2 L (9.4-12.4) fL Immature Gran % 0.4 (0-4) % Seg Neutrophils % 67.2 % Lymphocytes % 22.8 % Monocytes % 7.4 % Eosinophils % 1.8 % Basophils % 0.4 % Neutrophils # 3.8 (1.6-8.9) K/mcL Lymphocytes # 1.3 (0.6-4.6) K/mcL Monocytes # 0.4 (0.0-1.3) K/mcL Eosinophils # 0.1 (0.0-0.6) K/mcL Basophils # 0.0 (0.0-0.2) K/mcL PT 11.8 (9.4-12.1) Seconds INR 1.1 APTT 31.2 (26.0-36.0) Seconds Sodium 141 (136-145) mEq/L Potassium 3.3 L (3.5-4.5) mEq/L Chloride 104 (98-109) mEq/L Carbon Dioxide 28 (19-29) mEq/L BUN 11 (7-20) mg/dL Creatinine 0.83 (0.57-1.11) mg/dL Est GFR ( Amer) > 60 (> 60) Est GFR (Non-Af Amer) > 60 (> 60) BUN/Creatinine Ratio 13 (6-26) Glucose 97 (70-99) mg/dL Calculated Osmolality 291 (280-300) Lactic Acid (0.5-2.2) mmol/L Calcium 10.3 (8.6-10.8) mg/dL Total Bilirubin 1.0 (0.2-1.2) mg/dL Direct Bilirubin 0.3 (0.0-0.5) mg/dL Indirect Bilirubin 0.7 (0.0-1.2) mg/dL AST 27 (5-34) Units/L ALT 28 (0-55) Units/L Alkaline Phosphatase 99 (38-126) Units/L C-Reactive Protein 31 H (Less than 5) mg/L Serum Total Protein 8.1 (6.0-8.3) g/dL Albumin 3.9 (3.5-5.0) g/dL Globulin 4.2 H (2.4-3.5) g/dL Albumin/Globulin Ratio 0.9 L (1.1-2.2) Lipase 21 (8-78) Units/L Serum , Qual (Negative) Urine Color (Yellow) Urine Clarity (Clear) Urine pH (5.0-8.0) pH Units Ur Specific Nora (1.010-1.025) Urine Protein (Neg-Trace) mg/dL Urine Glucose (UA) (Normal) mg/dL Urine Ketones (Negative) mg/dL Urine Blood (Negative) Urine Nitrite (Negative) Urine Bilirubin (Negative) Urine Urobilinogen (Normal) mg/dL Ur Leukocyte Esterase (Negative) Urine Microscopic RBC (0-3) per hpf Urine Microscopic WBC (0-3) per hpf Ur Squamous Epith Cells (None-Few) per lpf Urine Bacteria (None-Few) per hpf Hyaline Casts (None-Few) per lpf Ur Culture Indicated? (NO) Urine Opiates Screen (Jypnyi=360) ng/mL Ur Barbiturates Screen (Qhqwvj=709) ng/mL Ur Phencyclidine Scrn (Cutoff=25) ng/mL Ur Amphetamines Screen (Usspnd=2976) ng/mL U Benzodiazepines Scrn (Nkpchq=157) ng/mL Urine Cocaine Screen (Cutoff= 300) ng/mL U Marijuana (THC) Screen (Cutoff = 50) ng/mL 02/27/17 02/27/17 02/27/17 Range/Units 11:53 11:53 13:32 WBC (4.3-11.1) K/mcL RBC (3.82-4.97) M/mcL Hgb (11.5-15.4) g/dL Hct (35.3-44.9) % MCV (83.0-100.0) fL MCH (28.0-33.3) pg MCHC (31.6-35.5) g/dL RDW (11.5-14.5) % Plt Count (140-400) K/mcL MPV (9.4-12.4) fL Immature Gran % (0-4) % Seg Neutrophils % % Lymphocytes % % Monocytes % % Eosinophils % % Basophils % % Neutrophils # (1.6-8.9) K/mcL Lymphocytes # (0.6-4.6) K/mcL Monocytes # (0.0-1.3) K/mcL Eosinophils # (0.0-0.6) K/mcL Basophils # (0.0-0.2) K/mcL PT (9.4-12.1) Seconds INR APTT (26.0-36.0) Seconds Sodium (136-145) mEq/L Potassium (3.5-4.5) mEq/L Chloride (98-109) mEq/L Carbon Dioxide (19-29) mEq/L BUN (7-20) mg/dL Creatinine (0.57-1.11) mg/dL Est GFR ( Amer) (> 60) Est GFR (Non-Af Amer) (> 60) BUN/Creatinine Ratio (6-26) Glucose (70-99) mg/dL Calculated Osmolality (280-300) Lactic Acid 0.9 (0.5-2.2) mmol/L Calcium (8.6-10.8) mg/dL Total Bilirubin (0.2-1.2) mg/dL Direct Bilirubin (0.0-0.5) mg/dL Indirect Bilirubin (0.0-1.2) mg/dL AST (5-34) Units/L ALT (0-55) Units/L Alkaline Phosphatase (38-126) Units/L C-Reactive Protein (Less than 5) mg/L Serum Total Protein (6.0-8.3) g/dL Albumin (3.5-5.0) g/dL Globulin (2.4-3.5) g/dL Albumin/Globulin Ratio (1.1-2.2) Lipase (8-78) Units/L Serum , Qual Negative (Negative) Urine Color (Yellow) Urine Clarity (Clear) Urine pH (5.0-8.0) pH Units Ur Specific Nora (1.010-1.025) Urine Protein (Neg-Trace) mg/dL Urine Glucose (UA) (Normal) mg/dL Urine Ketones (Negative) mg/dL Urine Blood (Negative) Urine Nitrite (Negative) Urine Bilirubin (Negative) Urine Urobilinogen (Normal) mg/dL Ur Leukocyte Esterase (Negative) Urine Microscopic RBC (0-3) per hpf Urine Microscopic WBC (0-3) per hpf Ur Squamous Epith Cells (None-Few) per lpf Urine Bacteria (None-Few) per hpf Hyaline Casts (None-Few) per lpf Ur Culture Indicated? (NO) Urine Opiates Screen Positive H (Ygwrcg=339) ng/mL Ur Barbiturates Screen Negative (Hhpopa=992) ng/mL Ur Phencyclidine Scrn Negative (Cutoff=25) ng/mL Ur Amphetamines Screen Negative (Rttlwu=0036) ng/mL U Benzodiazepines Scrn Negative (Nycpdq=736) ng/mL Urine Cocaine Screen Negative (Cutoff= 300) ng/mL U Marijuana (THC) Screen Negative (Cutoff = 50) ng/mL 02/27/17 Range/Units 13:34 WBC (4.3-11.1) K/mcL RBC (3.82-4.97) M/mcL Hgb (11.5-15.4) g/dL Hct (35.3-44.9) % MCV (83.0-100.0) fL MCH (28.0-33.3) pg MCHC (31.6-35.5) g/dL RDW (11.5-14.5) % Plt Count (140-400) K/mcL MPV (9.4-12.4) fL Immature Gran % (0-4) % Seg Neutrophils % % Lymphocytes % % Monocytes % % Eosinophils % % Basophils % % Neutrophils # (1.6-8.9) K/mcL Lymphocytes # (0.6-4.6) K/mcL Monocytes # (0.0-1.3) K/mcL Eosinophils # (0.0-0.6) K/mcL Basophils # (0.0-0.2) K/mcL PT (9.4-12.1) Seconds INR APTT (26.0-36.0) Seconds Sodium (136-145) mEq/L Potassium (3.5-4.5) mEq/L Chloride (98-109) mEq/L Carbon Dioxide (19-29) mEq/L BUN (7-20) mg/dL Creatinine (0.57-1.11) mg/dL Est GFR ( Amer) (> 60) Est GFR (Non-Af Amer) (> 60) BUN/Creatinine Ratio (6-26) Glucose (70-99) mg/dL Calculated Osmolality (280-300) Lactic Acid (0.5-2.2) mmol/L Calcium (8.6-10.8) mg/dL Total Bilirubin (0.2-1.2) mg/dL Direct Bilirubin (0.0-0.5) mg/dL Indirect Bilirubin (0.0-1.2) mg/dL AST (5-34) Units/L ALT (0-55) Units/L Alkaline Phosphatase (38-126) Units/L C-Reactive Protein (Less than 5) mg/L Serum Total Protein (6.0-8.3) g/dL Albumin (3.5-5.0) g/dL Globulin (2.4-3.5) g/dL Albumin/Globulin Ratio (1.1-2.2) Lipase (8-78) Units/L Serum , Qual (Negative) Urine Color Dark Yellow (Yellow) Urine Clarity Cloudy A (Clear) Urine pH 6.5 (5.0-8.0) pH Units Ur Specific Nora 1.028 H (1.010-1.025) Urine Protein 30 H (Neg-Trace) mg/dL Urine Glucose (UA) Normal (Normal) mg/dL Urine Ketones Negative (Negative) mg/dL Urine Blood Large H (Negative) Urine Nitrite Negative (Negative) Urine Bilirubin Negative (Negative) Urine Urobilinogen Normal (Normal) mg/dL Ur Leukocyte Esterase Small H (Negative) Urine Microscopic RBC 15-30 H (0-3) per hpf Urine Microscopic WBC 5-15 H (0-3) per hpf Ur Squamous Epith Cells Many H (None-Few) per lpf Urine Bacteria Many H (None-Few) per hpf Hyaline Casts Few (None-Few) per lpf Ur Culture Indicated? YES A (NO) Urine Opiates Screen (Oljqzd=682) ng/mL Ur Barbiturates Screen (Nlhxgq=082) ng/mL Ur Phencyclidine Scrn (Cutoff=25) ng/mL Ur Amphetamines Screen (Pnghyx=3014) ng/mL U Benzodiazepines Scrn (Ckvcnv=912) ng/mL Urine Cocaine Screen (Cutoff= 300) ng/mL U Marijuana (THC) Screen (Cutoff = 50) ng/mL - Diagnostic Studies CT scan - abdomen Additional comments: Abdomen/Pelvis CT 02/27/17 13:38 IMPRESSION: Postsurgical changes within the lower midline infraumbilical abdominal wall with stranding and small amount of fluid. The amount of fluid within the anterior abdominal wall is slightly increased since the prior study. No drainable abscess is evident. D/ / Elyssa Black Cha, MD / Elyssa Black Cha, MD Interpreting Provider: Elyssa Black Cha, MD
[2017-02-27] MEDS: 0.9 % Sodium Chloride 1,000 ML IVC SCH (18:44)
[2017-02-27] MEDS: *HR* OxyCODONE Immed Rel 5 MG TABLET PO PRN (19:15)
[2017-02-27] MEDS: Vancomycin 1,500 MG in D5% in Water 250 ML IVPB SCH (20:05)
[2017-02-27] MEDS: *HR* Promethazine 25 MG/ML VIAL IVP PRN (21:20)
[2017-02-27] MEDS: *HR* HYDROmorphone (PF) 1 MG/ML SYRINGE IVP PRN (21:20)
[2017-02-27] MEDS: Piperacillin/Tazobactam 3.375 GM in D5% in Water (Mini-Bag+) 100 ML IVPB SCH (23:42)
[2017-02-28] MEDS ORDERED: HydrOXYzine 100 MG/2 ML VIAL IM ONE (00:03)
[2017-02-28] MEDS: *HR* HYDROmorphone (PF) 1 MG/ML SYRINGE IVP PRN ×3 (03:41→11:50)
[2017-02-28 06:07] LABS: BUN/Creatinine Ratio 16 (6-26); Blood Urea Nitrogen 15 mg/dL (7-20); Calcium 8.9 mg/dL (8.6-10.8); Carbon Dioxide 25 mEq/L (19-29); Chloride 107 mEq/L (98-109); Glucose 102 mg/dL (70-99); Osmolality,Calculated 293 (280-300); Potassium 3.5 mEq/L (3.5-4.5); Sodium 141 mEq/L (136-145); eGFR For African Americans > 60 (> 60); eGFR For Non-African Americans > 60 (> 60)
[2017-02-28] MEDS: Vancomycin 1,500 MG in D5% in Water 250 ML IVPB SCH (06:21)
[2017-02-28] MEDS: Ondansetron 4 MG/2 ML VIAL IVP PRN ×2 (06:24→16:26)
[2017-02-28] MEDS: *HR* Enoxaparin 40 MG/0.4 ML SYRINGE SQ SCH (06:24)
[2017-02-28] MEDS: *HR* Promethazine 25 MG/ML VIAL IVP PRN ×2 (07:45→19:46)
[2017-02-28] MEDS: 0.9 % Sodium Chloride 1,000 ML IVC SCH (07:46)
[2017-02-28] MEDS: amLODIPine 5 MG TABLET PO SCH (07:46)
[2017-02-28] MEDS: Piperacillin/Tazobactam 3.375 GM in D5% in Water (Mini-Bag+) 100 ML IVPB SCH ×3 (07:47→23:49)
--- NOTE | 2017-02-28 14:46 | Internal Med Progress Note ---
Date of Encounter: 02/28/17 Time of Encounter: 09:00 - Assessment and plan (1) Wound infection Current Visit: Yes Status: Acute Assessment and plan: Clinically abdominal wound does not look infected. Gram stain is so far negative. Follow-up wound culture. Continue IV Zosyn. Wound care consult. Discussed with employment case manager, patient does receive home health services with daily visiting nurse for wound packing, no evidence of new infection per home care nurse. Patient does follow as an outpatient at the wound care clinic at [facility]. (2) Abdominal pain Current Visit: Yes Status: Chronic Assessment and plan: Patient is well-known to our service with multiple previous admissions with abdominal pain. Unclear if pain is currently related to abdominal wound, as this is chronic at least 4-5 weeks since her partial colon resection. Continue pain control with when necessary IV morphine and oral Percocet. Stop IV Dilaudid. Diet as tolerated. Qualifiers: Abdominal location: periumbilical Qualified Code(s): R10.33 - Periumbilical pain (3) Vomiting Current Visit: Yes Status: Resolved Assessment and plan: Unclear etiology. Currently tolerating clear liquid diet. Start full liquid diet and advance as tolerated. Supportive care and when necessary antiemetics. Qualifiers: Vomiting type: unspecified Vomiting Intractability: non-intractable Nausea presence: with nausea Qualified Code(s): R11.2 - Nausea with vomiting, unspecified (4) Urinary tract infection Current Visit: Yes Status: Acute Assessment and plan: Failed outpatient therapy, has been on by mouth Macrobid for the last 3-4 days. Urinalysis is suggestive of UTI and urine culture currently grows 2 different gram-negative rods. Continue IV Zosyn and follow up final urine culture results. Qualifiers: Urinary tract infection type: site unspecified Hematuria presence: without hematuria Qualified Code(s): N39.0 - Urinary tract infection, site not specified (5) HTN (hypertension) Current Visit: Yes Status: Chronic Assessment and plan: Blood pressure noted to be well controlled. Continue home medications. Qualifiers: Hypertension type: essential hypertension Qualified Code(s): I10 - Essential (primary) hypertension (6) History of colon resection Current Visit: Yes Status: Chronic (7) Depression Current Visit: Yes Status: Chronic Assessment and plan: Mood is currently stable. Noted to be on Lexapro at home, will resume. Qualifiers: Depression Type: unspecified Qualified Code(s): F32.9 - Major depressive disorder, single episode, unspecified - Subjective Interval history: Reports improvement in nausea and emesis, still has abdominal pain at the chronic wound site; no fever/chills, diarrhea; - Constitutional Vitals: Temp Pulse Resp BP Pulse Ox 98.1 F 83 17 128/84 95 02/28/17 12:06 02/28/17 12:06 02/28/17 12:06 02/28/17 12:06 02/28/17 12:06 General appearance: Present: A&O X 3, obese, answers questions appropriately - Respiratory Respiratory exam: Present: CTAB. Absent: accessory muscle use, rales, rhonchi, wheezes - Cardiovascular Cardiovascular exam: Present: RRR, +S1, +S2. Absent: diastolic murmur, gallop, rubs, systolic murmur - GI/Abdominal GI/Abdominal exam: Present: normal bowel sounds, soft (Soft and nontender abdomen. Small 1 cm wound in the infraumbilical area with gauze packing, no active discharge noted), no peritoneal signs. Absent: distended, tenderness Additional comments: No signs of cellulitis around the abdominal wound - Extremities Exam Extremities exam: Present: full ROM, warm, radial pulses palpable and symetrical. Absent: calf tenderness, cyanotic, pedal edema - Neurological Exam Neurological exam: Present: CN II-XII intact, oriented X3, no focal deficits. Absent: pronater drift, facial droop, speech deficit Internal Medicine: Result - Labs CBC & Chem 7: 02/27/17 11:53 02/28/17 04:47 Labs: BMP 02/28/17 04:47 Sodium 141 Potassium 3.5 Chloride 107 Carbon Dioxide 25 BUN 15 Creatinine 0.96 Glucose 102 H Calcium 8.9 - ABG Interpretation ABG results: PT/INR, D-dimer PT 11.8 Seconds (9.4-12.1) 02/27/17 11:53 - VTE Documentation of Mechanical Device: Graduated compression elastic hosiery Consult Discharge Plan - Plan Referrals: Carlos Malagon, PAC [Primary Care Provider] - 03/17/17 11:00 am
[2017-02-28] MEDS: *HR* OxyCODONE Immed Rel 5 MG TABLET PO PRN ×2 (16:27→22:17)
[2017-02-28] MEDS: *HR* Morphine 2 MG/ML SYRINGE IVP PRN ×2 (19:46→23:49)
[2017-03-01] MEDS: *HR* Morphine 2 MG/ML SYRINGE IVP PRN ×5 (04:13→21:41)
[2017-03-01] MEDS: *HR* Enoxaparin 40 MG/0.4 ML SYRINGE SQ SCH (06:08)
[2017-03-01] MEDS: *HR* OxyCODONE Immed Rel 5 MG TABLET PO PRN ×2 (06:08→15:24)
[2017-03-01] MEDS: amLODIPine 5 MG TABLET PO SCH (07:38)
[2017-03-01] MEDS: Piperacillin/Tazobactam 3.375 GM in D5% in Water (Mini-Bag+) 100 ML IVPB SCH ×3 (07:39→23:21)
[2017-03-01] MEDS: *HR* Promethazine 25 MG/ML VIAL IVP PRN ×2 (07:51→21:41)
--- NOTE | 2017-03-01 10:37 | Internal Med Progress Note ---
Date of Encounter: 03/01/17 Time of Encounter: 10:34 - Assessment and plan (1) Urinary tract infection Current Visit: Yes Status: Acute Assessment and plan: Failed outpatient therapy, has been on by mouth Keflex and then Macrobid for the last 3-4 days. Urinalysis is suggestive of UTI and urine culture currently grows 2 different gram-negative rods, pending final results and sensitivities. Continue IV Zosyn and follow up final urine culture results. No e/o sepsis; will start Pyridium; Qualifiers: Urinary tract infection type: site unspecified Hematuria presence: without hematuria Qualified Code(s): N39.0 - Urinary tract infection, site not specified (2) Wound infection Current Visit: Yes Status: Ruled-out Assessment and plan: Clinically abdominal wound does not look infected. Preliminary wound culture is negative; Wound care consult noted, continue wound care per recommendations, patient will f/up with her physician at [facility] after discharge. (3) Abdominal pain Current Visit: Yes Status: Chronic Assessment and plan: Patient is well-known to our service with multiple previous admissions with abdominal pain. Likely due to UTI at his time as pain is mainly suprapubic; Continue antibiotics and pain control with when necessary IV morphine and oral Percocet. Diet as tolerated. Qualifiers: Abdominal location: periumbilical Qualified Code(s): R10.33 - Periumbilical pain (4) Vomiting Current Visit: Yes Status: Resolved Qualifiers: Vomiting type: unspecified Vomiting Intractability: non-intractable Nausea presence: with nausea Qualified Code(s): R11.2 - Nausea with vomiting, unspecified (5) HTN (hypertension) Current Visit: Yes Status: Chronic Assessment and plan: Blood pressure noted to be well controlled. Continue home medications. Qualifiers: Hypertension type: essential hypertension Qualified Code(s): I10 - Essential (primary) hypertension (6) History of colon resection Current Visit: Yes Status: Chronic (7) Depression Current Visit: Yes Status: Chronic Assessment and plan: Mood is currently stable. Noted to be on Lexapro at home, will continue. Qualifiers: Depression Type: unspecified Qualified Code(s): F32.9 - Major depressive disorder, single episode, unspecified - Subjective Interval history: Reports persistent suprapubic pain and tightness along with burning micturition ; no fever/chills; improved nausea and vomiting; - Constitutional Vitals: Temp Pulse Resp BP Pulse Ox 97.6 F 79 16 135/90 98 03/01/17 07:29 03/01/17 07:29 03/01/17 07:29 03/01/17 07:03/01/17 07:29 General appearance: Present: A&O X 3, obese, answers questions appropriately - Respiratory Respiratory exam: Present: CTAB. Absent: accessory muscle use, rales, rhonchi, wheezes - Cardiovascular Cardiovascular exam: Present: RRR, +S1, +S2. Absent: diastolic murmur, gallop, rubs, systolic murmur - GI/Abdominal GI/Abdominal exam: Present: normal bowel sounds, soft (suprapubic tenderness+), no peritoneal signs. Absent: distended, tenderness Internal Medicine: Result - Labs CBC & Chem 7: 02/27/17 11:53 02/28/17 04:47 - ABG Interpretation ABG results: PT/INR, D-dimer PT 11.8 Seconds (9.4-12.1) 02/27/17 11:53 - VTE Documentation of Mechanical Device: Graduated compression elastic hosiery Consult Discharge Plan - Plan Referrals: Carlos Malagon, PAC [Primary Care Provider] - 03/17/17 11:00 am
[2017-03-01] MEDS: Ondansetron 4 MG/2 ML VIAL IVP PRN (15:24)
[2017-03-02] MEDS: *HR* Morphine 2 MG/ML SYRINGE IVP PRN ×2 (03:14→08:14)
[2017-03-02] MEDS: *HR* Enoxaparin 40 MG/0.4 ML SYRINGE SQ SCH (05:00)
[2017-03-02 07:44] VITALS: BP 119/45
[2017-03-02] MEDS: Ondansetron 4 MG/2 ML VIAL IVP PRN (08:14)
[2017-03-02] MEDS: amLODIPine 5 MG TABLET PO SCH (08:15)
[2017-03-02] MEDS: Piperacillin/Tazobactam 3.375 GM in D5% in Water (Mini-Bag+) 100 ML IVPB SCH (08:15)
--- NOTE | 2017-03-02 10:11 | Discharge Summary ---
Date of Encounter: 03/02/17 Time of Encounter: 10:10 - Discharge Diagnosis (1) Urinary tract infection Priority: Primary Status: Acute Qualifiers: Urinary tract infection type: acute cystitis Hematuria presence: without hematuria Qualified Code(s): N30.00 - Acute cystitis without hematuria (2) Wound infection Priority: Primary Status: Ruled-out (3) Abdominal pain Priority: Secondary Status: Chronic Qualifiers: Abdominal location: periumbilical Qualified Code(s): R10.33 - Periumbilical pain (4) Vomiting Priority: Primary Status: Resolved Qualifiers: Vomiting type: unspecified Vomiting Intractability: non-intractable Nausea presence: with nausea Qualified Code(s): R11.2 - Nausea with vomiting, unspecified (5) HTN (hypertension) Priority: Secondary Status: Chronic Qualifiers: Hypertension type: essential hypertension Qualified Code(s): I10 - Essential (primary) hypertension (6) History of colon resection Priority: Secondary Status: Chronic (7) Depression Priority: Secondary Status: Chronic Qualifiers: Depression Type: unspecified Qualified Code(s): F32.9 - Major depressive disorder, single episode, unspecified - Discharge Medications Prescriptions: Cefdinir [Omnicef] 300 mg PO BID #20 capsule Phenazopyridine [Pyridium] 100 mg PO TID PRN #30 tablet PRN Reason: dysuria Home Medications: amLODIPine [Norvasc] 5 mg PO DAILY 07/23/16 [History] HYDROcodone/Acet 5/325 mg [[place] 5-325 mg] 1 tab PO Q6H PRN 02/27/17 [History] Nystatin POWDER [Nystop] 1 appl TP DAILY PRN 02/27/17 [History] Ondansetron HCl [Zofran] 4 mg PO Q4H PRN 02/27/17 [History] Promethazine [Phenergan] 25 mg PO Q6HR PRN 02/27/17 [History] Cefdinir [Omnicef] 300 mg PO BID #20 capsule 03/02/17 [Rx] Escitalopram [Lexapro] 10 mg PO DAILY tablet 03/02/17 [Rx] Phenazopyridine [Pyridium] 100 mg PO TID PRN #30 tablet 03/02/17 [Rx] Allergies/Adverse Reactions: Allergies azithromycin [From Zithromax] Allergy (Verified 02/10/17 17:23) Abdominal Pain levofloxacin [From Levaquin] Allergy (Verified 02/10/17 17:23) Hives prochlorperazine [From Compazine] Allergy (Verified 02/10/17 17:23) Rash Sulfa (Sulfonamide Antibiotics) Allergy (Verified 02/10/17 17:23) Anaphylaxis Date of admission: 02/27/17 18:19 Primary care physician: Carlos Malagon Consults: 02/27/17 18:24 Consult to Wound Care [CONS] Routine Reason for Consult: tunneling non-healing surgical wound midline abdomen Call Completed: No 02/27/17 19:02 Consult to Framing Mill Operator Helper [CONS] Routine Reason for SW Consult: [facility]. Discharging clinician: Doris Pete Anticipated date of discharge: 03/02/17 - Patient Status Disposition: Home Health Service Condition: Good Functional capacity at discharge: independent ambulation Overall status at discharge: patient is progressing back to baseline - Discharge Instructions Follow Up With: Carlos Malagon PAC [Primary Care Provider] - 03/17/17 11:00 am Additional Instructions: F/up at Wound care clinic at [facility] as scheduled - Diet and Activity Activity: resume usual activities as tolerated Diet: low fat, low cholesterol, low salt diet Hospital course: Ms. Fernando is a 36 year old female with chronic abdominal pain related to multiple episodes of diverticulitis and a psychosomatic component. She was admitted with suprapubic pain, nausea and vomiting for possible abdominal wound infection and UTI. She is noted to have a chronic infraumbilical postsurgical wound (related to recent partial colectomy at [facility]), that is being followed by a home health nurse as outpatient for packing and wound care. She was started on broad-spectrum IV antibiotics-vancomycin and Zosyn. She was noted to have a mild hypersensitivity reaction to vancomycin with generalized pruritus and erythema and this was held. Nasal MRSA screen was negative. Wound and blood cultures remained negative. Wound care nurse was consulted and wound care instructions were followed. Urine culture eventually grows Escherichia coli and Enterobacter cloaca, sensitive to third-generation cephalosporins. Patient is now medically stable for discharge with oral antibiotics. She continues to have some suprapubic pressure and pain radiating to left lower abdomen with no organic cause except UTI, that is being treated. She is agreeable to discharge today with oral antibiotics and when necessary Pyridium with resumption of home health services. - Time Spent with Patient Total time spent providing and/or coordinating discharge services: Greater than 30 minutes (40 min) - Constitutional Vitals: Temp Pulse Resp BP Pulse Ox 98.3 F 83 16 119/45 96 03/02/17 07:32 03/02/17 07:32 03/02/17 07:32 03/02/17 07:32 03/02/17 07:32 General appearance: Present: A&O X 3, obese, answers questions appropriately - Cardiovascular Cardiovascular exam: Present: RRR, +S1, +S2. Absent: diastolic murmur, gallop, rubs, systolic murmur - VTE Documentation of Mechanical Device: Graduated compression elastic hosiery
--- NOTE | 2017-03-02 10:22 | Physician Discharge Referral ---
Home Health/Hosp Referral Info Transfer to: Home Health Attending Provider: Doris Pete Provider in Charge Post Discharge: PCP - Diagnosis (1) Urinary tract infection Priority: Primary Status: Acute (2) Wound infection Priority: Primary Status: Ruled-out (3) Abdominal pain Priority: Secondary Status: Chronic (4) Vomiting Priority: Primary Status: Resolved (5) HTN (hypertension) Priority: Secondary Status: Chronic (6) History of colon resection Priority: Secondary Status: Chronic (7) Depression Priority: Secondary Status: Chronic - Respiratory Orders Smoking Cessation: Smoking cessation has been advised. For more information, call the [place] Tobacco Quit Line at 6-127-HHBI-NOW. - Diet/Nutrition Diet/Nutrition Orders: Cardiac - Activity Activity Orders: Ambulate - Services Needed Following services are medically necessary services: Nursing - Transfer Medications Prescriptions: Cefdinir [Omnicef] 300 mg PO BID #20 capsule Phenazopyridine [Pyridium] 100 mg PO TID PRN #30 tablet PRN Reason: dysuria Home Medications: amLODIPine [Norvasc] 5 mg PO DAILY 07/23/16 [History] HYDROcodone/Acet 5/325 mg [[place] 5-325 mg] 1 tab PO Q6H PRN 02/27/17 [History] Nystatin POWDER [Nystop] 1 appl TP DAILY PRN 02/27/17 [History] Ondansetron HCl [Zofran] 4 mg PO Q4H PRN 02/27/17 [History] Promethazine [Phenergan] 25 mg PO Q6HR PRN 02/27/17 [History] Cefdinir [Omnicef] 300 mg PO BID #20 capsule 03/02/17 [Rx] Escitalopram [Lexapro] 10 mg PO DAILY tablet 03/02/17 [Rx] Phenazopyridine [Pyridium] 100 mg PO TID PRN #30 tablet 03/02/17 [Rx] Allergies/Adverse Reactions: Allergies azithromycin [From Zithromax] Allergy (Verified 02/10/17 17:23) Abdominal Pain levofloxacin [From Levaquin] Allergy (Verified 02/10/17 17:23) Hives prochlorperazine [From Compazine] Allergy (Verified 02/10/17 17:23) Rash Sulfa (Sulfonamide Antibiotics) Allergy (Verified 02/10/17 17:23) Anaphylaxis Certification: Further, I certify that my clinical findings support that this patient is homebound (i.e. absences from home require considerable and taxing effort and are for medical reasons or yazidi services or infrequently or short duration when for other reasons) because: Homebound Reason: Patient requires assistance of a person or device to safely leave home, Leaving home requires considerable and taxing effort due to condition Attestation: My signature below is to certify that this patient is under my care and that I, or nurse practitioner, or a physician's fundraising assistant working with me, has a face-to -face encounter with this patient.
[2017-03-02] MEDS ORDERED: Aminoglycoside Consult 1 EACH MC ONE (11:10)
== END 2017-03-02 11:11 | disposition home health service (06) ==
LOC: EMEROO 10:59 → 3ANU 10:59
PROVIDERS: ADMIT Internal Medicine; ATTEND Internal Medicine

== ENCOUNTER 2018-12-18 22:23 | Observation (INO) ==
[2018-12-18 22:46] LABS: Bilirubin,Urine Negative (Negative); Blood,Urine Moderate (Negative); Clarity,Urine Clear (Clear); Color,Urine Yellow (Yellow); Glucose,Urine (UA) Normal (Normal); Ketones,Urine Negative (Negative); Leukocyte Esterase,Urine Negative (Negative); Nitrite,Urine Negative (Negative); Protein,Urine Negative (Neg-Trace); Urobilinogen,Urine Normal (Normal)
[2018-12-18 22:49] LABS: Bacteria,Urine None Seen per hpf (None-Few); Hyaline Casts,Urine None Seen per lpf (None-Few); Squamous Epithelial Cell,Urine Many per lpf (None-Few); WBC,Urine 0-3 per hpf (0-3)
[2018-12-18 22:56] LABS: Basophils % 0.3 %; Eosinophils # 0.2 K/mcL (0.0-0.6); Eosinophils % 2.2 %; Hemoglobin 12.9 g/dL (11.5-15.4); Immature Granulocytes % 0.4 % (0-4); Lymphocytes % 20.1 %; Mean Corpuscular HGB Conc 33.1 g/dL (31.6-35.5); Mean Corpuscular Hemoglobin 28.4 pg (28.0-33.3); Mean Corpuscular Volume 85.9 fL (83.0-100.0); Mean Platelet Volume 9.5 fL (9.4-12.4); Monocytes # 0.6 K/mcL (0.0-1.3); Monocytes % 6.1 %; Neutrophils # 7.2 K/mcL (1.6-8.9); Platelet Count 336 K/mcL (140-400); Red Blood Count 4.54 M/mcL (3.82-4.97); Red Cell Distribution Width 15.2 % (11.5-14.5); Segmented Neutrophils % 70.9 %
[2018-12-18 23:16] LABS: Alanine Aminotransferase 23 Units/L (7-52); Albumin 4.2 g/dL (3.5-5.7); Albumin/Globulin Ratio 1.3 (1.1-2.2); Alkaline Phosphatase 115 Units/L (34-104); Amylase 18 Units/L (29-103); Aspartate Amino Transferase 18 Units/L (13-39); BUN/Creatinine Ratio 17 (6-26); Bilirubin,Direct 0.1 mg/dL (0.0-0.2); Bilirubin,Indirect 0.6 mg/dL (0.0-1.2); Bilirubin,Total 0.7 mg/dL (0.3-1.0); Blood Urea Nitrogen 12 mg/dL (6-20); Calcium 9.7 mg/dL (8.6-10.3); Carbon Dioxide 26 mEq/L (23-29); Chloride 103 mEq/L (98-107); Globulin 3.2 g/dL (2.4-3.5); Glucose 128 mg/dL (70-105); Lipase 32 Units/L (11-82); Osmolality,Calculated 289 (280-300); Potassium 3.4 mEq/L (3.5-5.1); Sodium 139 mEq/L (136-145); Total Protein 7.4 g/dL (6.4-8.9); eGFR For Non-African Americans > 60 (> 60)
[2018-12-18] MEDS ORDERED: Ketorolac 15 MG/ML VIAL IVP STA (23:53)
[2018-12-18] MEDS ORDERED: *HR* Morphine 2 MG/ML SYRINGE IVP STA (23:53)
[2018-12-18] MEDS ORDERED: KETAMINE IVPB ONE (23:53)
[2018-12-18] MEDS ORDERED: SODIUM CHLORIDE 0.9% IVPB ONE (23:53)
--- NOTE | 2018-12-18 23:56 | Emergency Department Note ---
Disposition Clinical Impression: Abdominal pain Disposition: Admitted As Inpatient Condition: Good General Adult HPI - General Chief complaint: ED Abdominal Pain Stated complaint: ABD Pain Time Seen by Provider: 12/18/18 23:18 Source: patient Limitations: no limitations - History of Present Illness HPI Narrative: Patient resents of abdominal pain that started yesterday. She was seen at [place] emergency department with a ruled out UTI, told to take Naprosyn as needed. Comes back today with worsening of pain. It was intermittent yesterday, more constant today. It is in the suprapubic region as well as the right upper quadrant radiating through the right back. She had her gallbladder removed in 2009. Has had history kidney stones twice in the past, once she was able to pass it on her own, once she required a procedure. She cannot recall whether those symptoms are similar to the symptoms she is having currently, is a kidney stone for several years ago. Denies fever. No urinary frequency, urgency, dysuria or hematuria. No vaginal bleeding or discharge. She is otherwise without complaint. Pain Scale: 9 - Related Data Previous Rx's Medication Instructions Recorded Chlorthalidone 25 mg PO DAILY #30 tablet 12/21/18 Omeprazole [PriLOSEC] 20 mg PO DAILY@0730 #30 capsule. 12/21/18 Allergies Allergy/AdvReac Type Severity Reaction Status Date / Time azithromycin [From Zithromax] Allergy Hives Verified 12/19/18 11:24 levofloxacin [From Levaquin] Allergy Hives Verified 12/19/18 11:24 prochlorperazine Allergy Rash Verified 12/19/18 11:24 [From Compazine] Sulfa (Sulfonamide Allergy Anaphylaxis Verified 12/19/18 11:24 Antibiotics) vancomycin Allergy Hives Verified 12/19/18 11:24 All systems ED: reviewed and negative except as stated. 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 General: Well-developed, well-nourished patient lying in bed who appears uncomfortable but non-toxic. Head: Atraumatic, normocephalic. Eyes: Sclera anicteric. ENT: Mucous membranes moist. Heart: Regular rate and rhythm without appreciable murmur. Lungs: Normal respiratory pattern without distress, lungs clear to auscultation b/l. Abdomen: Soft, tender in the lower abdomen as well as right upper quadrant. No guarding or peritoneal signs. Skin: Warm and dry without rash. Neurologic: Awake and alert with normal speech and mental status. Pupils are equal. Moves all extremities equally well. No focal deficits or lateralizing signs. Psychiatric: Mood and affect appropriate. - General Limitations: no limitations General appearance: alert Course Vital Signs Temperature 97.7 F 12/18/18 22:30 Pulse Rate 98 12/18/18 22:30 Respiratory Rate 20 12/18/18 22:30 Blood Pressure 177/126 12/18/18 22:30 O2 Sat by Pulse Oximetry 97 12/18/18 22:30 Temperature 98.3 F 12/21/18 15:38 Pulse Rate 87 12/21/18 15:38 Respiratory Rate 17 12/21/18 15:38 Blood Pressure 154/79 12/21/18 15:38 O2 Sat by Pulse Oximetry 91 12/21/18 15:38 Oxygen Delivery Oxygen Delivery Room Air Medical Decision Making - Lab Data Result diagrams: 12/20/18 08:26 12/20/18 08:26 Lab Results 12/18/18 12/18/18 12/18/18 Range/Units 22:30 22:40 22:40 WBC 10.2 (4.3-11.1) K/mcL RBC 4.54 (3.82-4.97) M/mcL Hgb 12.9 (11.5-15.4) g/dL Hct 39.0 (35.3-44.9) % MCV 85.9 (83.0-100.0) fL MCH 28.4 (28.0-33.3) pg MCHC 33.1 (31.6-35.5) g/dL RDW 15.2 H (11.5-14.5) % Plt Count 336 (140-400) K/mcL MPV 9.5 (9.4-12.4) fL Immature Gran % 0.4 (0-4) % Seg Neutrophils % 70.9 % Lymphocytes % 20.1 % Monocytes % 6.1 % Eosinophils % 2.2 % Basophils % 0.3 % Neutrophils # 7.2 (1.6-8.9) K/mcL Lymphocytes # 2.0 (0.6-4.6) K/mcL Monocytes # 0.6 (0.0-1.3) K/mcL Eosinophils # 0.2 (0.0-0.6) K/mcL Basophils # 0.0 (0.0-0.2) K/mcL Sodium 139 (136-145) mEq/L Potassium 3.4 L (3.5-5.1) mEq/L Chloride 103 (98-107) mEq/L Carbon Dioxide 26 (23-29) mEq/L BUN 12 (6-20) mg/dL Creatinine 0.69 (0.60-1.20) mg/dL Est GFR ( Amer) > 60 (> 60) Est GFR (Non-Af Amer) > 60 (> 60) BUN/Creatinine Ratio 17 (6-26) Glucose 128 H (70-105) mg/dL Calculated Osmolality 289 (280-300) Lactic Acid (0.5-2.2) mmol/L Calcium 9.7 (8.6-10.3) mg/dL Total Bilirubin 0.7 (0.3-1.0) mg/dL Direct Bilirubin 0.1 (0.0-0.2) mg/dL Indirect Bilirubin 0.6 (0.0-1.2) mg/dL AST 18 (13-39) Units/L ALT 23 (7-52) Units/L Alkaline Phosphatase 115 H (34-104) Units/L Serum Total Protein 7.4 (6.4-8.9) g/dL Albumin 4.2 (3.5-5.7) g/dL Globulin 3.2 (2.4-3.5) g/dL Albumin/Globulin Ratio 1.3 (1.1-2.2) Amylase 18 L (29-103) Units/L Lipase 32 (11-82) Units/L Urine Color Yellow (Yellow) Urine Clarity Clear (Clear) Urine pH 7.0 (5.0-8.0) pH Units Ur Specific [place] 1.010 (1.010-1.025) Urine Protein Negative (Neg-Trace) mg/dL Urine Glucose (UA) Normal (Normal) mg/dL Urine Ketones Negative (Negative) mg/dL Urine Blood Moderate H (Negative) Urine Nitrite Negative (Negative) Urine Bilirubin Negative (Negative) Urine Urobilinogen Normal (Normal) mg/dL Ur Leukocyte Esterase Negative (Negative) Urine Microscopic RBC 5-15 H (0-3) per hpf Urine Microscopic WBC 0-3 (0-3) per hpf Ur Squamous Epith Cells Many H (None-Few) per lpf Urine Bacteria None Seen (None-Few) per hpf Hyaline Casts None Seen (None-Few) per lpf Ur Culture Indicated? NO (NO) Urine Test (Negative) 12/19/18 12/19/18 Range/Units 00:00 05:43 WBC (4.3-11.1) K/mcL RBC (3.82-4.97) M/mcL Hgb (11.5-15.4) g/dL Hct (35.3-44.9) % MCV (83.0-100.0) fL MCH (28.0-33.3) pg MCHC (31.6-35.5) g/dL RDW (11.5-14.5) % Plt Count (140-400) K/mcL MPV (9.4-12.4) fL Immature Gran % (0-4) % Seg Neutrophils % % Lymphocytes % % Monocytes % % Eosinophils % % Basophils % % Neutrophils # (1.6-8.9) K/mcL Lymphocytes # (0.6-4.6) K/mcL Monocytes # (0.0-1.3) K/mcL Eosinophils # (0.0-0.6) K/mcL Basophils # (0.0-0.2) K/mcL Sodium (136-145) mEq/L Potassium (3.5-5.1) mEq/L Chloride (98-107) mEq/L Carbon Dioxide (23-29) mEq/L BUN (6-20) mg/dL Creatinine (0.60-1.20) mg/dL Est GFR ( Amer) (> 60) Est GFR (Non-Af Amer) (> 60) BUN/Creatinine Ratio (6-26) Glucose (70-105) mg/dL Calculated Osmolality (280-300) Lactic Acid 1.0 (0.5-2.2) mmol/L Calcium (8.6-10.3) mg/dL Total Bilirubin (0.3-1.0) mg/dL Direct Bilirubin (0.0-0.2) mg/dL Indirect Bilirubin (0.0-1.2) mg/dL AST (13-39) Units/L ALT (7-52) Units/L Alkaline Phosphatase (34-104) Units/L Serum Total Protein (6.4-8.9) g/dL Albumin (3.5-5.7) g/dL Globulin (2.4-3.5) g/dL Albumin/Globulin Ratio (1.1-2.2) Amylase (29-103) Units/L Lipase (11-82) Units/L Urine Color (Yellow) Urine Clarity (Clear) Urine pH (5.0-8.0) pH Units Ur Specific [place] (1.010-1.025) Urine Protein (Neg-Trace) mg/dL Urine Glucose (UA) (Normal) mg/dL Urine Ketones (Negative) mg/dL Urine Blood (Negative) Urine Nitrite (Negative) Urine Bilirubin (Negative) Urine Urobilinogen (Normal) mg/dL Ur Leukocyte Esterase (Negative) Urine Microscopic RBC (0-3) per hpf Urine Microscopic WBC (0-3) per hpf Ur Squamous Epith Cells (None-Few) per lpf Urine Bacteria (None-Few) per hpf Hyaline Casts (None-Few) per lpf Ur Culture Indicated? (NO) Urine Test Negative (Negative)
[2018-12-19] MEDS ORDERED: *HR* HYDROmorphone (PF) 1 MG/ML SYRINGE IVP ONE ×2 (02:57→05:26)
[2018-12-19] MEDS ORDERED: Ondansetron 4 MG/2 ML VIAL IVP ONE (02:57)
--- NOTE | 2018-12-19 05:34 | Emergency Department Note ---
Disposition Clinical Impression: Abdominal pain Qualifiers: Abdominal location: generalized Qualified Code(s): R10.84 - Generalized abdominal pain Disposition: Admitted As Inpatient Condition: Fair Referrals: NONE,PCP [Primary Care Provider] - Forms: ED Satisfaction Letter, Work/School Release Time of Disposition: 06:11 General Adult HPI - General Chief complaint: ED Abdominal Pain Stated complaint: ABD Pain Time Seen by Provider: 12/18/18 23:18 Source: patient Limitations: no limitations - History of Present Illness Pain Scale: 9 - Related Data Home Medications Medication Instructions Recorded Confirmed No Known Home Drugs 12/18/18 12/18/18 Allergies Allergy/AdvReac Type Severity Reaction Status Date / Time azithromycin [From Zithromax] Allergy Hives Verified 12/16/18 08:28 levofloxacin [From Levaquin] Allergy Hives Verified 12/16/18 08:28 prochlorperazine Allergy Rash Verified 12/16/18 08:28 [From Compazine] Sulfa (Sulfonamide Allergy Anaphylaxis Verified 12/16/18 08:28 Antibiotics) vancomycin Allergy Hives Verified 12/16/18 08:28 Past Medical History - Past Medical History Medical history: Reports: hypertension, kidney stones, other Surgical history: Reports: non-contributory, appendectomy, , cholecystectomy, colectomy, hysterectomy, other Psychiatric history: Reports: anxiety, depression [employer]PA[employer] history: Reports: non-contributory, endometriosis, polycystic ovary syndrome - Social History Smoking Status: Never smoker Smokeless Tobacco Status: No Alcohol use: Reports: none Drug use: Reports: none Physical Exam - General Limitations: no limitations General appearance: alert Course Course Narrative: Patient was received in sign out from the daytime physician Dr. Salgado. Patient was waiting for symptomatic control and CT imaging the abdomen to be resulted. He is concern initially about possible renal stone versus intra- abdominal etiology. Patient had negative laboratory workup at this point. She does have a rather extensive surgical history in the belly. Patient will be treated symptomatically with pain medication. This will be her third dose of pain medication while here in the emergency department and disposition to be de termined. EKG and labs reviewed. Patient is otherwise stable. Repeat physical exam shows an obese appearing female. Lungs are clear heart is regular abdomen is soft but she does have mild discomfort suprapubically and into the bilateral lower quadrants. She has had a total hysterectomy in the past as well as a partial colectomy. Disposition pending workup - Reevaluation(s) Reevaluation #1: Laboratory workup is remain stable. test and lactic acid were added on prior to knowing that the patient has had a total hysterectomy. CT imaging is unremarkable for acute findings that would account for the patient's abdominal discomfort. I went in to reevaluate the patient discussed possible discharge home with a negative workup. She is still appearing very uncomfortable in the bed. Her vital signs are stable. Lactic acid is still pending. Conversation was had with the on-call hospitalist Dr. Curry for discussion about possible admission for serial abdominal examinations and intractable abdominal pain. He is comfortable with the admission process at this time. He did request the lactic acid being resulted prior to the patient being admitted. Patient will be held in emergency room to the lactic acid is resulted. Patient was informed plan she is otherwise stable. Time: 06:10 Vital Signs Temperature 97.7 F 12/18/18 22:30 Pulse Rate 98 12/18/18 22:30 Respiratory Rate 20 12/18/18 22:30 Blood Pressure 177/126 12/18/18 22:30 O2 Sat by Pulse Oximetry 97 12/18/18 22:30 Temperature 97.7 F 12/18/18 23:30 Pulse Rate 97 12/19/18 02:35 Respiratory Rate 20 12/19/18 02:35 Blood Pressure 108/75 12/19/18 02:35 O2 Sat by Pulse Oximetry 97 12/19/18 02:35 Oxygen Delivery Oxygen Delivery Room Air Medical Decision Making - MDM Narrative Medical decision making narrative: Intractable abdominal pain. - Medical Records Medical records reviewed: Yes I reviewed the patient's medical records. - Lab Data Lab results reviewed: Yes I reviewed the patient's lab results. Result diagrams: 12/18/18 22:40 12/18/18 22:40 Lab Results 12/18/18 12/18/18 12/18/18 Range/Units 22:30 22:40 22:40 WBC 10.2 (4.3-11.1) K/mcL RBC 4.54 (3.82-4.97) M/mcL Hgb 12.9 (11.5-15.4) g/dL Hct 39.0 (35.3-44.9) % MCV 85.9 (83.0-100.0) fL MCH 28.4 (28.0-33.3) pg MCHC 33.1 (31.6-35.5) g/dL RDW 15.2 H (11.5-14.5) % Plt Count 336 (140-400) K/mcL MPV 9.5 (9.4-12.4) fL Immature Gran % 0.4 (0-4) % Seg Neutrophils % 70.9 % Lymphocytes % 20.1 % Monocytes % 6.1 % Eosinophils % 2.2 % Basophils % 0.3 % Neutrophils # 7.2 (1.6-8.9) K/mcL Lymphocytes # 2.0 (0.6-4.6) K/mcL Monocytes # 0.6 (0.0-1.3) K/mcL Eosinophils # 0.2 (0.0-0.6) K/mcL Basophils # 0.0 (0.0-0.2) K/mcL Sodium 139 (136-145) mEq/L Potassium 3.4 L (3.5-5.1) mEq/L Chloride 103 (98-107) mEq/L Carbon Dioxide 26 (23-29) mEq/L BUN 12 (6-20) mg/dL Creatinine 0.69 (0.60-1.20) mg/dL Est GFR ( Amer) > 60 (> 60) Est GFR (Non-Af Amer) > 60 (> 60) BUN/Creatinine Ratio 17 (6-26) Glucose 128 H (70-105) mg/dL Calculated Osmolality 289 (280-300) Calcium 9.7 (8.6-10.3) mg/dL Total Bilirubin 0.7 (0.3-1.0) mg/dL Direct Bilirubin 0.1 (0.0-0.2) mg/dL Indirect Bilirubin 0.6 (0.0-1.2) mg/dL AST 18 (13-39) Units/L ALT 23 (7-52) Units/L Alkaline Phosphatase 115 H (34-104) Units/L Serum Total Protein 7.4 (6.4-8.9) g/dL Albumin 4.2 (3.5-5.7) g/dL Globulin 3.2 (2.4-3.5) g/dL Albumin/Globulin Ratio 1.3 (1.1-2.2) Amylase 18 L (29-103) Units/L Lipase 32 (11-82) Units/L Urine Color Yellow (Yellow) Urine Clarity Clear (Clear) Urine pH 7.0 (5.0-8.0) pH Units Ur Specific [place] 1.010 (1.010-1.025) Urine Protein Negative (Neg-Trace) mg/dL Urine Glucose (UA) Normal (Normal) mg/dL Urine Ketones Negative (Negative) mg/dL Urine Blood Moderate H (Negative) Urine Nitrite Negative (Negative) Urine Bilirubin Negative (Negative) Urine Urobilinogen Normal (Normal) mg/dL Ur Leukocyte Esterase Negative (Negative) Urine Microscopic RBC 5-15 H (0-3) per hpf Urine Microscopic WBC 0-3 (0-3) per hpf Ur Squamous Epith Cells Many H (None-Few) per lpf Urine Bacteria None Seen (None-Few) per hpf Hyaline Casts None Seen (None-Few) per lpf Ur Culture Indicated? NO (NO) - Radiology Data Radiology results reviewed: Yes I reviewed the patient's radiology results. CT imaging of the abdomen is unremarkable.
[2018-12-19] MEDS ORDERED: Naloxone 0.4 MG/ML INJ IVP PRN (07:50)
[2018-12-19] MEDS ORDERED: *HR* FentaNYL PATCH 12 MCG PATCH TD SCH (08:00)
[2018-12-19] MEDS: Pantoprazole 40 MG VIAL IVP SCH (09:03)
[2018-12-19] MEDS: D5% in 0.9% NACL 1,000 ML IVC SCH ×2 (09:08→19:40)
--- NOTE | 2018-12-19 10:02 | Internal Med History&Physical ---
Date of Encounter: 12/19/18 Time of Encounter: 10:01 Internal Medicine - H&P: HPI Chief complaint: abdominal pain Admitted From: Home Plans for Post Hospital Care: Home History of present illness: Ms. Fernando is a 38 year old female PMH significant for HTN (off medications), recurrent diverticulitis requiring surgery in 2018. As per patient she had 2 1/2 feet of her colon removed and has had about 9 surgery following this one due to complications. Patient presented to the ED complaining of abdominal pain. She reports that for the past couple of days she has been having lower abdominal pain and she thought she was coming with a UTI and went to an urgent care and her urine was tested but was not diagnostic for a UTI. Reports that yesterday afternoon she started having sharp 9/10 RUQ and LLQ abdominal pain radiating to her back associated with nausea and multiple episodes of bilious vomiting and decided to come to the ED. Reports she has been taking scheduled advil and tylenol everey Q48HRs for the past week due to lower abdominal pain. Denies constipation and reports she has been passing flatus. denies seeing blood in her stool. Hospitalist called for admission as patient continues to have abdominal pain despite IV pain medication. Past Med Surg Social Fam HX - Past Medical History Medical history: hypertension, kidney stones, other Additional medical history: diverticulitis Psychiatric history: anxiety, depression - Past Surgical History Surgical History: non-contributory, appendectomy, , cholecystectomy, colectomy, hysterectomy, other Additional surgical history: Open bowel resection-December 2016 Open wound until october 2017 - Social History Smoking Status: Never smoker Smokeless Tobacco Status: No Alcohol use: none Drug use: none - Family History Grandmother Living Status: Still Living Hx Family GI Disorders: Yes (Ulcers) Mother Adopted: No Family Member Ethnicity: Non- Living Status: Still Living Hx Family Cardiac Disorders: No Hx Family Respiratory Disorders: No Hx Family Cancer: No Hx Family GI Disorders: No Hx Family Endocrine Disorder: No Hx Family Neuromuscular Disorders: No Hx Family Neurologic Disorders: No Hx Family HEENT Disorders: No Hx Family Autoimmune Disorders: No Father Family Member Ethnicity: Non- Living Status: Still Living Hx Family Cardiac Disorders: No Hx Family Respiratory Disorders: No Hx Family Cancer: No Hx Family GI Disorders: No Hx Family Endocrine Disorder: No Hx Family Neuromuscular Disorders: No Hx Family Neurologic Disorders: No Hx Family HEENT Disorders: No Hx Family Autoimmune Disorders: No Internal Medicine - H&P: Meds No Known Home Drugs 12/18/18 [History] Allergy/AdvReac Type Severity Reaction Status Date / Time azithromycin [From Zithromax] Allergy Hives Verified 12/16/18 08:28 levofloxacin [From Levaquin] Allergy Hives Verified 12/16/18 08:28 prochlorperazine Allergy Rash Verified 12/16/18 08:28 [From Compazine] Sulfa (Sulfonamide Allergy Anaphylaxis Verified 12/16/18 08:28 Antibiotics) vancomycin Allergy Hives Verified 12/16/18 08:28 All Systems PM: A 10-system review of systems was performed and is negative for pertinent findings except as documented above in the HPI. - Constitutional Constitutional: no chills, no fever(s), no weakness - Cardiovascular Cardiovascular ROS IM: no chest pain, no dyspnea on exertion, no edema, no palpitations - Respiratory Respiratory: no cough, no wheezing, no excessive phlegm production, no change in phlegm color - Gastrointestinal Gastrointestinal: abdominal pain, no diarrhea, no loose stools, no melena, no na usea - Genitourinary Genitourinary: no dysuria, no urinary frequency, no urinary hesitancy, no urinary incontinence, no urinary urgency - Musculoskeletal Musculoskeletal ROS IM: no arthralgias, no muscle weakness - Integumentary Integumentary IM: no erythema, no rash - Neurological Neurological ROS: no abnormal gait, no dizziness, no tremor(s), no weakness - Psychiatric Psychiatric: no anxiety, no depression, no irritability - Endocrine Endocrine IM: no cold intolerance, no excessive sweating - Hematologic/Lymphatic Hematologic/Lymphatic: no lymphadenopathy - Allergic/Immunologic Allergic/Immunologic: no tongue swelling, no wheezing - Constitutional Vitals: Temp Pulse Resp BP Pulse Ox 97.7 F 101 20 131/78 92 12/19/18 08:02 12/19/18 08:02 12/19/18 08:02 12/19/18 08:02 12/19/18 08:02 Exam: Vitals: Reviewed General: Alert and oriented x4. In moderate distress due to abdominal pain Skin: Normal color, no rash, no lesions. HEENT: EOM, pupils equal, round and reactive. Cardiovascular: RRR, normal S1 & S2, no rubs, murmurs or gallops. Lungs: CTA b/l, no wheezes or crackles. Abdomen: Obese, soft, tenderness to superficial palpation in the LLQ, no rigidity or guarding. Extremities: No deformity, no edema or tenderness, no joint swelling or clubbing. Neurological: Normal cognition and motor skills. Rest of the physical exam is non contributory Internal Med - H&P Results - Labs CBC & Chem 7: 12/18/18 22:40 12/18/18 22:40 Labs: Short CBC 12/18/18 Range/Units 22:40 WBC 10.2 (4.3-11.1) K/mcL Hgb 12.9 (11.5-15.4) g/dL Hct 39.0 (35.3-44.9) % Plt Count 336 (140-400) K/mcL Neutrophils # 7.2 (1.6-8.9) K/mcL BMP 12/18/18 22:40 Sodium 139 Potassium 3.4 L Chloride 103 Carbon Dioxide 26 BUN 12 Creatinine 0.69 Glucose 128 H Calcium 9.7 Liver Function 12/18/18 Range/Units 22:40 Total Bilirubin 0.7 (0.3-1.0) mg/dL Direct Bilirubin 0.1 (0.0-0.2) mg/dL AST 18 (13-39) Units/L ALT 23 (7-52) Units/L Alkaline Phosphatase 115 H (34-104) Units/L Albumin 4.2 (3.5-5.7) g/dL Urine 12/18/18 Range/Units 22:30 Urine Color Yellow (Yellow) Urine Clarity Clear (Clear) Urine pH 7.0 (5.0-8.0) pH Units Ur Specific [place] 1.010 (1.010-1.025) Urine Protein Negative (Neg-Trace) mg/dL Urine Glucose (UA) Normal (Normal) mg/dL - Impressions ITS Impressions Abdomen/Pelvis CT 12/19/18 00:26 IMPRESSION: No acute findings. Hepatic steatosis. Postsurgical changes as described. D/ / Floyd Saha MD / Floyd Saha MD Interpreting Provider: Floyd Saha MD - Assessment and Plan (1) Abdominal pain Current Visit: Yes Status: Acute Assessment and plan: unclear etiology. CT abdomen:No acute findings. Hepatic steatosis. Plan clear liquid diet started on D5NS @100 ml/hr on PPI and anti-emetics fentanyl 12mg Patch If symptoms continue will consider surgery consult for evaluation. Qualifiers: Abdominal location: generalized Qualified Code(s): R10.84 - Generalized abdominal pain (2) DVT prophylaxis Current Visit: Yes Status: Acute Assessment and plan: heparin subq. (3) HTN (hypertension) Current Visit: No Status: Chronic Assessment and plan: patient reports she is not on any anti-hypertensive medication. hydralazine 5mg/ IV Q6HR PRN for SBP >190 Qualifiers: Hypertension type: essential hypertension Qualified Code(s): I10 - Essential (primary) hypertension (4) Morbid obesity with BMI of 40.0-44.9, adult Current Visit: No Status: Chronic (5) Hypokalemia Current Visit: Yes Status: Acute Assessment and plan: electrolyte replaced - Time Spent With Patient Total time spent is greater than 50% in coordination of care (as documented) at patient's floor/unit and/or counseling patient: Greater than 35 minutes (40)
[2018-12-19] MEDS: traMADol 50 MG TABLET PO PRN ×2 (11:40→20:12)
[2018-12-19] MEDS: *HR* Heparin 5,000 UNIT/ML VIAL SQ SCH ×2 (15:43→20:14)
[2018-12-19] MEDS ORDERED: *HR* FentaNYL (PF) 100 MCG/2 ML VIAL IVP ONE (15:53)
[2018-12-19] MEDS: Ondansetron 4 MG/2 ML VIAL IVP PRN (16:26)
[2018-12-20] MEDS ORDERED: Ketorolac 15 MG/ML VIAL IVP ONE
[2018-12-20] MEDS: traMADol 50 MG TABLET PO PRN (05:51)
[2018-12-20] MEDS: D5% in 0.9% NACL 1,000 ML IVC SCH ×2 (05:52→16:13)
[2018-12-20] MEDS: *HR* Heparin 5,000 UNIT/ML VIAL SQ SCH ×3 (05:55→20:01)
[2018-12-20 08:51] LABS: Basophils % 0.5 %; Eosinophils # 0.2 K/mcL (0.0-0.6); Eosinophils % 3.7 %; Hematocrit 36.2 % (35.3-44.9); Hemoglobin 11.5 g/dL (11.5-15.4); Immature Granulocytes % 0.2 % (0-4); Lymphocytes # 1.1 K/mcL (0.6-4.6); Lymphocytes % 19.9 %; Mean Corpuscular HGB Conc 31.8 g/dL (31.6-35.5); Mean Corpuscular Volume 88.1 fL (83.0-100.0); Mean Platelet Volume 9.4 fL (9.4-12.4); Monocytes # 0.4 K/mcL (0.0-1.3); Monocytes % 6.9 %; Neutrophils # 3.9 K/mcL (1.6-8.9); Platelet Count 257 K/mcL (140-400); Red Blood Count 4.11 M/mcL (3.82-4.97); Segmented Neutrophils % 68.8 %
[2018-12-20 09:09] LABS: BUN/Creatinine Ratio 15 (6-26); Blood Urea Nitrogen 10 mg/dL (6-20); Calcium 8.9 mg/dL (8.6-10.3); Carbon Dioxide 27 mEq/L (23-29); Chloride 105 mEq/L (98-107); Glucose 122 mg/dL (70-105); Osmolality,Calculated 288 (280-300); Phosphorous 3.3 mg/dL (2.7-4.5); Potassium 3.7 mEq/L (3.5-5.1); Sodium 139 mEq/L (136-145); eGFR For Non-African Americans > 60 (> 60)
[2018-12-20] MEDS: Pantoprazole 40 MG VIAL IVP SCH (09:19)
--- NOTE | 2018-12-20 10:01 | Internal Med Progress Note ---
Hospitalist Progress Note - Encounter Date of Encounter: 12/20/18 Time of Encounter: 09:59 - Subjective Interval History: Patient continues to have significant abdominal pain. Reports that nothing has improved her pain so far. Pain is located in the left lower quadrant and suprapubic region. No relation to activity. She feels like it is a constant s tabbing pain. Has not had any improvement even after having bowel movements. Denies any dysuria. - Exam Vitals: Temp Pulse Resp BP Pulse Ox 97.9 F 84 95 176/89 95 12/20/18 08:28 12/20/18 08:28 12/20/18 08:28 12/20/18 08:28 12/20/18 04:23 Exam: General: Patient is alert, mild distress, oriented x 3 ENT: Mucous membranes moist Respiratory: Good respiratory effort. Normal breath sounds. No wheezing or crackles. Cardiovascular: Regular rate and rhythm. s1 and s2 normal No clicks, rubs, gallops, or murmurs. No pedal edema Abdomen: Abdomen is soft, tender to deep palpation in the left lower quadrant. Bowel sounds are present Musculoskeletal: Spontaneously moving all extremities Skin: warm, dry, intact. Neuro: Alert oriented x 3 normal cranial nerves, no focal deficits - Assessment and Plan (1) Abdominal pain Current Visit: Yes Status: Acute Assessment and Plan: Patient continues to have acute abdominal pain in the left lower quadrant. CT of the abdomen and pelvis does not show any acute process. Urinalysis does not suggest any UTI. Reviewing her records, I see that the patient has had multiple visits to the ER over the past couple of years with episodes of acute abdominal pain with no clear cause identified. During a previous hospitalization here, she was suspected of having a psychosomatic competent. At this time, will manage symptomatically with bowel rest, IV fluids and pain medications. Antiemetics will also be provided as needed. No signs of acute surgical abd omen. Moderate risk for complications mainly due to use of pain medications. (2) Morbid obesity with BMI of 40.0-44.9, adult Current Visit: Yes Status: Chronic (3) HTN (hypertension) Current Visit: Yes Status: Chronic Assessment and Plan: Blood pressure elevated this morning. We will place her on chlorthalidone. (4) DVT prophylaxis Current Visit: Yes Status: Acute Assessment and Plan: On subcutaneous heparin (5) Hypokalemia Current Visit: Yes Status: Acute Assessment and Plan: Improved. - Time Spent with Patient Total time spent is greater than 50% in coordination of care (as documented) at patient's floor/unit and/or counseling patient: Internal Medicine: Result - Labs CBC & Chem 7: 12/20/18 08:26 12/20/18 08:26 Labs: Short CBC 12/20/18 Range/Units 08:26 WBC 5.6 (4.3-11.1) K/mcL Hgb 11.5 (11.5-15.4) g/dL Hct 36.2 (35.3-44.9) % Plt Count 257 (140-400) K/mcL Neutrophils # 3.9 (1.6-8.9) K/mcL BMP 12/20/18 08:26 Sodium 139 Potassium 3.7 Chloride 105 Carbon Dioxide 27 BUN 10 Creatinine 0.65 Glucose 122 H Calcium 8.9 Consult Discharge Plan - Plan Referrals: NONE,PCP [Primary Care Provider] - (1) Abdominal pain Qualifiers: Abdominal location: left lower quadrant Qualified Code(s): R10.32 - Left lower quadrant pain (3) HTN (hypertension) Qualifiers: Hypertension type: essential hypertension Qualified Code(s): I10 - Essential (primary) hypertension
[2018-12-20] MEDS ORDERED: Potassium Effervescent 25 MEQ TABLET.EFF PO ONE (10:03)
[2018-12-20] MEDS ORDERED: OXYCODONE Oral CONC 10 MG/0.5 ML ORAL.SYG SL PRN (10:04)
[2018-12-20] MEDS ORDERED: *HR* FentaNYL PATCH 12 MCG PATCH TD SCH (10:05)
[2018-12-20] MEDS ORDERED: *HR* Promethazine 25 MG/ML VIAL IVP PRN (10:05)
[2018-12-20] MEDS ORDERED: ' TD SCH (10:15)
[2018-12-20] MEDS: OXYCODONE Oral CONC 10 MG/0.5 ML ORAL.SYG SL PRN (22:06)
[2018-12-20] MEDS: Ondansetron 4 MG/2 ML VIAL IVP PRN (22:06)
[2018-12-21] MEDS ORDERED: 0.9 % Sodium Chloride 500 ML ONE (02:15)
[2018-12-21] MEDS: D5% in 0.9% NACL 1,000 ML IVC SCH ×2 (02:18→12:22)
[2018-12-21] MEDS: *HR* Heparin 5,000 UNIT/ML VIAL SQ SCH ×2 (05:52→14:39)
[2018-12-21] MEDS: Pantoprazole 40 MG VIAL IVP SCH (08:19)
[2018-12-21] MEDS: OXYCODONE Oral CONC 10 MG/0.5 ML ORAL.SYG SL PRN (08:20)
[2018-12-21] MEDS ORDERED: OXYCODONE Oral CONC 10 MG/0.5 ML ORAL.SYG SL PRN (09:51)
--- NOTE | 2018-12-21 14:14 | Internal Med Progress Note ---
Hospitalist Progress Note - Encounter Date of Encounter: 12/21/18 Time of Encounter: 09:45 - Subjective Interval History: Patient feels somewhat better today. Continues to have pain in the left lower quadrant. Tolerating clear liquids. Denies any fevers or chills. No hematemesis or melena. - Exam Vitals: Temp Pulse Resp BP Pulse Ox 98.0 F 75 16 166/99 94 12/21/18 11:41 12/21/18 11:41 12/21/18 11:41 12/21/18 11:41 12/21/18 11:41 Exam: General: Patient is alert, mild distress, oriented x 3 ENT: Mucous membranes moist Respiratory: Good respiratory effort. Normal breath sounds. No wheezing or crackles. Cardiovascular: Regular rate and rhythm. s1 and s2 normal No clicks, rubs, gallops, or murmurs. No pedal edema Abdomen: Abdomen is soft, mild left lower quadrant tenderness. Bowel sounds are present Musculoskeletal: Spontaneously moving all extremities Skin: warm, dry, intact. Neuro: Alert oriented x 3 normal cranial nerves, no focal deficits - Assessment and Plan (1) Abdominal pain Current Visit: Yes Status: Acute Assessment and Plan: Improving. Tolerating clear liquid diet. We will advance diet. If patient tolerates diet, plan for discharge tomorrow. Decrease opioid regimen. Moderate risk for complications. (2) Morbid obesity with BMI of 40.0-44.9, adult Current Visit: Yes Status: Chronic (3) HTN (hypertension) Current Visit: Yes Status: Chronic Assessment and Plan: Better controlled. Continue chlorthalidone (4) DVT prophylaxis Current Visit: Yes Status: Acute Assessment and Plan: Continue subcutaneous heparin (5) Hypokalemia Current Visit: Yes Status: Acute Assessment and Plan: Resolved. DVT Prophylaxis: Continue subcutaneous heparin - Time Spent with Patient Total time spent is greater than 50% in coordination of care (as documented) at patient's floor/unit and/or counseling patient: Internal Medicine: Result - Labs CBC & Chem 7: 12/20/18 08:26 12/20/18 08:26 Consult Discharge Plan - Plan Referrals: NONE,PCP [Primary Care Provider] - (1) Abdominal pain Qualifiers: Abdominal location: left lower quadrant Qualified Code(s): R10.32 - Left lower quadrant pain (3) HTN (hypertension) Qualifiers: Hypertension type: essential hypertension Qualified Code(s): I10 - Essential (primary) hypertension
--- NOTE | 2018-12-21 15:02 | Discharge Summary ---
- NOTES TO OUTPATIENT PROVIDER Notes to Outpatient Provider: Patient with a history of hypertension, kidney stones, prior cholecystectomy, appendectomy was hospitalized here with complaints of acute left lower quadrant abdominal pain. CT scan of the abdomen and pelvis done in the ER did not reveal any acute process. However patient was requiring intravenous narcotic medications to control her pain. As such she was observed in the hospital. She was kept nothing by mouth and also placed on fentanyl patch for pain. Her symptoms have now improved and she is tolerating oral diet well. She is clinically stable to be discharged home and will follow up with her primary care provider for further management. She has had multiple visits to the ER with complaints of abdominal pain and they recommend for outpatient referral to GI for further workup and evaluation. She may have underlying Irritable bowel syndrome. Date of Encounter: 12/21/18 Time of Encounter: 14:59 - Discharge Diagnosis (1) Abdominal pain Priority: Primary Status: Resolved Qualifiers: Abdominal location: left lower quadrant Qualified Code(s): R10.32 - Left lower quadrant pain (2) Morbid obesity with BMI of 40.0-44.9, adult Priority: Secondary Status: Chronic (3) HTN (hypertension) Priority: Secondary Status: Chronic Qualifiers: Hypertension type: essential hypertension Qualified Code(s): I10 - Essential (primary) hypertension (4) DVT prophylaxis Priority: Secondary Status: Acute (5) Hypokalemia Priority: Secondary Status: Acute Hospital course: Ms. Fernando is a 38 year old female Patient with a history of hypertension, kidney stones, prior cholecystectomy, appendectomy was hospitalized here with complaints of acute left lower quadrant abdominal pain. CT scan of the abdomen and pelvis done in the ER did not reveal any acute process. However patient was requiring intravenous narcotic medications to control her pain. As such she was observed in the hospital. She was kept nothing by mouth and also placed on fentanyl patch for pain. Her symptoms have now improved and she is tolerating oral diet well. She is clinically stable to be discharged home and will follow up with her primary care provider for further management. She has had multiple visits to the ER with complaints of abdominal pain and they recommend for outpatient referral to GI for further workup and evaluation. She may have underlying Irritable bowel syndrome. Discharge discussed with: patient - Time Spent with Patient Total time spent providing and/or coordinating discharge services: Time spent: Less than 30 minutes (20 min) - Discharge Medications Prescriptions: New Chlorthalidone 25 mg PO DAILY #30 tablet Omeprazole [PriLOSEC] 20 mg PO DAILY@0730 #30 capsule. Home Medications: Chlorthalidone 25 mg PO DAILY #30 tablet 12/21/18 [Rx] Omeprazole [PriLOSEC] 20 mg PO DAILY@0730 #30 capsule. 12/21/18 [Rx] Allergies/Adverse Reactions: Allergy/AdvReac Type Severity Reaction Status Date / Time azithromycin [From Zithromax] Allergy Hives Verified 12/19/18 11:24 levofloxacin [From Levaquin] Allergy Hives Verified 12/19/18 11:24 prochlorperazine Allergy Rash Verified 12/19/18 11:24 [From Compazine] Sulfa (Sulfonamide Allergy Anaphylaxis Verified 12/19/18 11:24 Antibiotics) vancomycin Allergy Hives Verified 12/19/18 11:24 Date of admission: 12/19/18 06:19 Primary care physician: PCP NONE Discharging clinician: Deidra Lopez Anticipated date of discharge: 12/21/18 - Constitutional Vitals: Temp Pulse Resp BP Pulse Ox 98.0 F 75 16 166/99 94 12/21/18 11:41 12/21/18 11:41 12/21/18 11:41 12/21/18 11:41 12/21/18 11:41 General appearance: Present: cooperative, A&O X 3, pleasant, obese, answers questions appropriately Exam: . - Respiratory Respiratory exam: Present: CTAB. Absent: accessory muscle use, rales, rhonchi, wheezes - Cardiovascular Cardiovascular exam: Present: RRR, +S1, +S2. Absent: diastolic murmur, gallop, rubs, systolic murmur - GI/Abdominal GI/Abdominal exam: Present: normal bowel sounds, soft, tenderness (Mild left lower quadrant), no peritoneal signs. Absent: distended - Patient Status Disposition: Home, Self-Care Condition: Good Functional capacity at discharge: independent ambulation Overall status at discharge: patient is progressing back to baseline - Discharge Instructions Instructions: Chronic Hypertension (DC) Follow Up With: NONE,PCP [Primary Care Provider] - (In 1-2 weeks) Marilyn Enriquez MD [Partnered Physician] - (Recurrent episodes of abdominal pain. Concerning for IBS. In 1-2 weeks) - Diet and Activity Activity: increase activity as tolerated Diet: advance to your usual diet
[2018-12-21 15:39] VITALS: BP 154/79
== END 2018-12-21 16:05 | disposition home or self-care (01) ==
LOC: 2ANU 22:23 → EMEROOARM 22:23 → 2ANU 12-19 07:45
PROVIDERS: ADMIT Pediatrics; ATTEND Internal Medicine

== ENCOUNTER 2019-11-25 09:20 | Observation (INO) ==
[2019-11-25] MEDS ORDERED: Naloxone 0.4 MG/ML INJ IVP PRN (11:17)
[2019-11-25] MEDS ORDERED: Acetaminophen 325 MG TABLET PO PRN (11:49)
[2019-11-25] MEDS: Ondansetron 4 MG/2 ML VIAL IVP PRN ×2 (11:56→20:18)
[2019-11-25] MEDS: 0.9 % Sodium Chloride 1,000 ML IVC SCH ×2 (11:56→20:17)
[2019-11-25] MEDS ORDERED: Dextrose Gel 15 GM/37.5 ML TUBE PO PRN ×2 (12:30)
[2019-11-25] MEDS ORDERED: *HR* Dextrose 50 % in Water (Syg) 50 ML SYRINGE IVP PRN (12:30)
[2019-11-25] MEDS ORDERED: D5% in Water 1,000 ML IVC PRN (12:30)
[2019-11-25] MEDS ORDERED: *HR* Metoprolol 5 MG/5 ML VIAL IVP PRN (12:32)
[2019-11-25] MEDS ORDERED: Benzonatate 100 MG CAPSULE PO PRN (12:59)
[2019-11-25] MEDS: *HR* Promethazine 25 MG/ML VIAL IVP PRN (13:58)
[2019-11-25] MEDS: Morphine Sulfate 2 MG/ML SYRINGE IVP PRN ×2 (13:58→20:17)
[2019-11-25] MEDS ORDERED: *HR* Heparin 5,000 UNIT/ML VIAL SQ SCH (14:00)
[2019-11-25] MEDS: Insulin LISPRO 300 UNITS/3 ML VIAL SQ SCH ×2 (16:36→20:15)
[2019-11-26] MEDS: *HR* Promethazine 25 MG/ML VIAL IVP PRN (00:33)
[2019-11-26] MEDS: *HR* Enoxaparin 40 MG/0.4 ML SYRINGE SQ SCH (06:47)
[2019-11-26 07:40] LABS: Basophils % 0.4 %; Eosinophils # 0.1 K/mcL (0.0-0.6); Eosinophils % 2.1 %; Hematocrit 33.7 % (35.3-44.9); Hemoglobin 10.7 g/dL (11.5-15.4); Immature Granulocytes % 0.2 % (0-4); Lymphocytes # 1.4 K/mcL (0.6-4.6); Lymphocytes % 24.4 %; Mean Corpuscular HGB Conc 31.8 g/dL (31.6-35.5); Mean Corpuscular Hemoglobin 27.6 pg (28.0-33.3); Mean Corpuscular Volume 87.1 fL (83.0-100.0); Mean Platelet Volume 9.6 fL (9.4-12.4); Monocytes # 0.4 K/mcL (0.0-1.3); Monocytes % 6.8 %; Neutrophils # 3.7 K/mcL (1.6-8.9); Platelet Count 235 K/mcL (140-400); Red Blood Count 3.87 M/mcL (3.82-4.97); Red Cell Distribution Width 15.7 % (11.5-14.5); Segmented Neutrophils % 66.1 %; White Blood Count 5.6 K/mcL (4.3-11.1)
[2019-11-26 07:41] LABS: BUN/Creatinine Ratio 19 (6-26); Blood Urea Nitrogen 14 mg/dL (6-20); Calcium 8.8 mg/dL (8.6-10.3); Carbon Dioxide 26 mEq/L (23-29); Chloride 105 mEq/L (98-107); Glucose 128 mg/dL (70-105); Osmolality,Calculated 288 (280-300); Potassium 3.8 mEq/L (3.5-5.1); Sodium 138 mEq/L (136-145); eGFR For African Americans > 60 (> 60); eGFR For Non-African Americans > 60 (> 60)
[2019-11-26] MEDS: Insulin LISPRO 300 UNITS/3 ML VIAL SQ SCH ×4 (08:09→21:00)
[2019-11-26 10:04] LABS: Estimated Average Glucose 128 mg/dl
[2019-11-26] MEDS ORDERED: Isovue-370 500 ML BOTTLE IVP ONE (10:23)
[2019-11-26] MEDS: Ondansetron 4 MG/2 ML VIAL IVP PRN ×2 (10:33→20:22)
[2019-11-26] MEDS: *HR* HYDROcodone/Acet 5/325 mg TABLET PO PRN (10:33)
[2019-11-26] MEDS: 0.9 % Sodium Chloride 1,000 ML IVC SCH ×2 (10:34→20:24)
[2019-11-26] MEDS: Morphine Sulfate 2 MG/ML SYRINGE IVP PRN ×2 (14:04→20:25)
[2019-11-26] MEDS: Pantoprazole 40 MG VIAL IVP SCH (17:21)
[2019-11-27] MEDS: 0.9 % Sodium Chloride 1,000 ML IVC SCH (00:34)
[2019-11-27] MEDS: *HR* Promethazine 25 MG/ML VIAL IVP PRN (00:45)
[2019-11-27] MEDS: Morphine Sulfate 2 MG/ML SYRINGE IVP PRN (03:25)
[2019-11-27] MEDS: *HR* Enoxaparin 40 MG/0.4 ML SYRINGE SQ SCH (03:25)
[2019-11-27] MEDS: Pantoprazole 40 MG VIAL IVP SCH (03:38)
[2019-11-27 04:33] LABS: BUN/Creatinine Ratio 16 (6-26); Blood Urea Nitrogen 12 mg/dL (6-20); Calcium 8.7 mg/dL (8.6-10.3); Carbon Dioxide 28 mEq/L (23-29); Chloride 103 mEq/L (98-107); Glucose 174 mg/dL (70-105); Osmolality,Calculated 286 (280-300); Potassium 3.4 mEq/L (3.5-5.1); Sodium 136 mEq/L (136-145); eGFR For African Americans > 60 (> 60); eGFR For Non-African Americans > 60 (> 60)
[2019-11-27 05:29] LABS: Basophils % 0.3 %; Eosinophils # 0.2 K/mcL (0.0-0.6); Eosinophils % 2.8 %; Hematocrit 34.3 % (35.3-44.9); Hemoglobin 10.7 g/dL (11.5-15.4); Immature Granulocytes % 0.5 % (0-4); Lymphocytes # 1.3 K/mcL (0.6-4.6); Lymphocytes % 21.9 %; Mean Corpuscular HGB Conc 31.2 g/dL (31.6-35.5); Mean Corpuscular Hemoglobin 27.6 pg (28.0-33.3); Mean Corpuscular Volume 88.6 fL (83.0-100.0); Mean Platelet Volume 9.1 fL (9.4-12.4); Monocytes # 0.4 K/mcL (0.0-1.3); Monocytes % 6.3 %; Neutrophils # 4.1 K/mcL (1.6-8.9); Platelet Count 227 K/mcL (140-400); Red Blood Count 3.87 M/mcL (3.82-4.97); Red Cell Distribution Width 15.3 % (11.5-14.5); Segmented Neutrophils % 68.2 %
[2019-11-27] MEDS: Ondansetron 4 MG/2 ML VIAL IVP PRN (08:32)
[2019-11-27] MEDS: Insulin LISPRO 300 UNITS/3 ML VIAL SQ SCH (08:33)
[2019-11-27 08:41] VITALS: BP 155/88
[2019-11-27] MEDS: *HR* HYDROcodone/Acet 5/325 mg TABLET PO PRN (09:53)
== END 2019-11-27 13:19 | disposition home or self-care (01) ==
LOC: 2NENU → SUATTDRO 10:56 → 2NNU 11-26 23:21
PROVIDERS: ADMIT Family Medicine; ATTEND Family Medicine